=== PATIENT | female | born 1995 | race Caucasian/White ===

== ENCOUNTER → 2021-09-19 | Outpatient (CLI) | payer OTHER ==
--- NOTE | 2021-09-19 15:22 | NM ---
EXAMINATION TYPE: NM hepatobiliary w EF DATE OF EXAM: 09/19/2021 COMPARISON: NONE HISTORY: Dysphasia, left upper quadrant pain TECHNIQUE: After the intravenous administration of 5.0 mCi Tc 99m Mebrofenin hepatobiliary scintigrap hy is performed. Immediate images post injection. FINDINGS: There is satisfactory initial accumulation of tracer by the liver. The gallbladder is visualized wit hin 6 minutes. The small bowel activity is noted within 12 minutes. At one hour 8 ounces of oral en sure plus is given to mimic CCK and gallbladder ejection fraction is calculated at 86 %, above the up per limit of the normal range. Therefore there is no scintigraphic evidence of cystic or common bile duct obstruction to suggest acute cholecystitis or gallbladder dyskinesia. IMPRESSION: Findings could represent hyperdynamic gallbladder
== END | disposition home or self-care (01) ==
LOC: RADNMMAIN 12:47
PROVIDERS: ATTEND Surgery Plastic and Reconstructive Surgery
DX: R10.12 Left upper quadrant pain (principal); R47.02 Dysphasia
CPT/HCPCS: 78226; A9537

== ENCOUNTER → 2021-09-19 | Outpatient (CLI) | payer OTHER ==
[2021-09-19 19:48] LABS: HCT 41.4 % (37.2-46.3); HGB 13.8 g/dL (12.0-15.0); MCH 31.1 pg (27.0-32.0); MCHC 33.3 g/dL (32.0-37.0); MCV 93.2 fL (80.0-97.0); Mean Platelet Volume 10.7 fL (9.5-12.2); Platelet Count 338 X 10*3/uL (140-440); RBC 4.44 X 10*6/uL (4.10-5.20); RDW 12.9 % (11.5-14.5)
[2021-09-19 21:02] LABS: ALT 95 U/L (8-44); AST 69 U/L (13-35); African American GFR (CKD) 131.7 (60.0-200.0); Albumin 4.5 g/dL (3.8-4.9); Albumin/Globulin Ratio 1.75 (1.60-3.17); Alkaline Phosphatase 83 U/L (41-126); Blood Urea Nitrogen 8.7 mg/dL (9.0-27.0); Calcium 9.8 mg/dL (8.7-10.3); Carbon Dioxide 17.6 mmol/L (20.0-27.5); Chloride 106 mmol/L (96-109); Chol/HDL Ratio 4.28 Ratio; Globulin 2.6 g/dL (1.6-3.3); Glucose 149 mg/dL (70-110); Iron 71 ug/dL (50-170); LDL Cholesterol,Calculated 75.3 mg/dL (0.0-131.0); Non-African American GFR(CKD) 113.7 (60.0-200.0); Potassium 3.6 mmol/L (3.5-5.5); Sodium 138 mmol/L (135-145); Total Iron Binding Capacity 337 ug/dL (228-460); Total Protein 7.1 g/dL (6.2-8.2)
== END | disposition home or self-care (01) ==
LOC: LABWHC1 12:32
PROVIDERS: ATTEND Surgery Plastic and Reconstructive Surgery
DX: I11.9 Hypertensive heart disease without heart failure (principal); E44.0 Moderate protein-calorie malnutrition; E88.81 Metabolic syndrome and other insulin resistance; E66.01 Morbid (severe) obesity due to excess calories; Z68.43 Body mass index [BMI] 50.0-59.9, adult
CPT/HCPCS: 36415; 80053; 80061; 82306; 82607; 82728; 83036; 83540; 83550; 84425; 84443; 85027

== ENCOUNTER → 2021-11-12 | Outpatient (CLI) | payer OTHER ==
[2021-11-12 15:40] VITALS: BP 99/70; PULSE 96; RESP 16; TEMP 97.6; BMI 43.9
--- NOTE | 2021-11-12 17:19 | P.BASOAP ---
Subjective Progress Note Date: 11/12/21 DATE OF SERVICE: 11/12/2021 CHIEF COMPLAINT: Morbid obesity HISTORY OF PRESENT ILLNESS: Amy Piper is a 25-year-old female who comes with lifelong morbid obesity. She was looking into the gastric bypass but now looking into the sleeve. She is in medical supervised weight loss. As a result of her morbid obesity, she has developed diabetes type II and osteoarthritis. She comes in with intermittent right upper quadrant pain and fatty food intolerance. At height of 5 feet 3.5 inches, her ideal body weight is 140 pounds. Highest weight of 269 pounds, body mass index 47.0. She comes in 251 pounds from 269 pounds, 3 months ago. She has lost 18 pounds in 3 months. Her body mass index is 43.9. She is 111 pounds overweight. PAST MEDICAL HISTORY: 1. Morbid obesity due to excess calories 2. Body mass index of 47.1, initial 3. Gastroesophageal reflux disease 4. Diabetes type II mellitus 5. Generalized anxiety disorder 6. Bipolar disorder 7. Depressive disorder 8. Disk herniation L5 S1 9. Osteoarthritis of the hip, right 10. Osteoarthritis of the knee, right 11. Osteoarthritis of right shoulder PAST SURGICAL HISTORY: 1. Adenoidectomy 2. Appendectomy 3. Orthopedic Surgery 4. Right ankle ORIF 5. Eustachian tubes 6. Right hip pinning HOME MEDICATIONS: Home Medications Medication Instructions Recorded Confirmed [place] Carbonate 1,200 mg PO HS 07/23/21 12/26/21 Propranolol [Inderal] 20 mg PO BID 07/23/21 12/26/21 QUEtiapine [SEROquel] 100 mg PO HS 07/23/21 12/26/21 Cholecalciferol [Vitamin D3 (125 125 mcg PO DAILY 12/26/21 12/26/21 Mcg = 5000 Iu)] Propranolol [Inderal] 20 mg PO TID PRN 12/26/21 12/26/21 QUEtiapine [SEROquel] 25 mg PO ONCE PRN 12/26/21 12/26/21 Vitamin E 400 unit PO DAILY 12/26/21 12/26/21 buPROPion HCL [Wellbutrin XL] 150 mg PO DAILY 12/26/21 12/26/21 ALLERGIES: Allergies Allergy/AdvReac Type Severity Reaction Status Date / Time nickel Allergy Rash/Hives Verified 12/26/21 08:56 Sulfa (Sulfonamide Allergy Rash/Hives Verified 12/26/21 08:56 Antibiotics) morphine AdvReac Hallucinations, Verified 12/26/21 08:56 gets aggressive and mean. SOCIAL HISTORY: Past tobacco use. FAMILY HISTORY: No family history of ulcerative colitis disease or Crohn's disease. Family history of morbid obesity. No lupus in the family. No reports of stomach or esophageal cancer. REVIEW OF ORGAN SYSTEMS: CONSTITUTIONAL: At height of 5 feet 3.5 inches, her ideal body weight is 140 pounds. She comes in 269 pounds. Her body mass index is 47.1. She is 129 pounds overweight. HEENT: Denies any active troubles with vision or hearing. ENDOCRINE: Denies diabetes. No hypothyroidism. CARDIOVASCULAR: Past reports of palpitations or heart attacks or chest pain. RESPIRATORY: Has daytime somnolence. GASTROINTESTINAL: Denies any bright red blood per rectum. No diarrhea. No constipation. Has gastroesophageal reflux disease. GENITOURINARY: Denies bladder urgency. No recent blood in urine MUSCULOSKELETAL: Has lower back pain and joint pain. Has osteoarthritis of the knees and hips. NEURO: No headaches. No seizure disorders. Has neuropathy. PSYCH: Has depression. No suicidal ideation. Has bipolar disorder. RHEUMATOLOGIC: No lupus. No rheumatoid arthritis. HEMATOLOGIC: Denies any abnormal bleeding or bruising. SKIN: No rash. No skin cancer. PHYSICAL EXAM: VITAL SIGNS: Height 5 foot 3.5 inches, weight 269 pounds. BMI 47.1 Vital Signs Temp 97.6 F 11/12/21 15:36 Pulse 96 11/12/21 15:36 Resp 16 11/12/21 15:36 BP 99/70 11/12/21 15:36 Pulse Ox GENERAL: Well-developed in no acute distress. HEENT: No scleral icterus. Extraocular movements grossly intact. Hears conversational speech. No nasal drainage. NECK: Supple without lymphadenopathy. CHEST: Nonlabored respirations with equal bilateral excursions. CARDIOVASCULAR: Regular rate and regular rhythm. Distal 2+ pulses. ABDOMEN: Obese, soft, nontender, nondistended. MUSCULOSKELETAL: No clubbing, cyanosis. She has a cast on her right foot due to recent injury. NEURO: No focal or lateralizing signs. Cranial nerves 2 through 12 grossly within normal limits. PSYCH: Appropriate affect. Alert and oriented to person, place and time. SKIN: Good skin turgor. Well perfused. LABS: Reviewed. WBC elevated. LFTs elevated. Triglycerides elevated. Vitamin D low. STUDIES: HIDA scan reviewed with finding of ejection fraction of 86%. ASSESSMENT: 1. Morbid obesity due to excess calories 2. Body mass index of 47.1, initial to 43.9 3. Gastroesophageal reflux disease 4. Diabetes type II mellitus 5. Generalized anxiety disorder 6. Bipolar disorder 7. Depressive disorder 8. Disk herniation L5 S1 9. Osteoarthritis of the hip, right 10. Osteoarthritis of the knee, right 11. Osteoarthritis of right shoulder 12. Leukocytosis 13. Elevated LFTs 14. Hypertriglyceridemia 15. Vitamin D deficiency PLAN: 1. For history of daytime somnolence, recommend evaluation and treatment for sleep apnea. 2. Dietary surveillance and counseling was reviewed. Increased protein intake over 65 grams daily advised. 3. Recommend medical risk assessment. 4. Psych assessment per insurance guidelines. 5. Recommend upper endoscopy 6. Recommend 12-lead EKG. 7. Recommend urine nicotine testing for history of tobacco abuse disorder 8. Recommend urine drug screen 9. She reports symptoms of cholecystitis. Recommend ultrasound of the gallbladder. Objective - Vital Signs Vital signs: Vital Signs Temp 97.6 F 11/12/21 15:36 Pulse 96 11/12/21 15:36 Resp 16 11/12/21 15:36 BP 99/70 11/12/21 15:36 Pulse Ox Intake & Output 11/11/21 11/12/21 11/12/21 18:59 06:59 18:59 Weight 114.305 kg Assessment/Plan Plan: Date: 11/12/21 Initial Weight: 122.47 kg Initial BMI: 47.0 Current Weight: 114.305 kg Current BMI: 43.9 Type of Surgery: Total Volume in Band: Previous Volume: Volume Removed: Volume Added: Band Size:
== END ==
LOC: BARWHC3 14:53
PROVIDERS: ATTEND Surgery Plastic and Reconstructive Surgery
DX: E66.01 Morbid (severe) obesity due to excess calories (principal); K21.9 Gastro-esophageal reflux disease without esophagitis; E11.9 Type 2 diabetes mellitus without complications; F41.1 Generalized anxiety disorder; F31.9 Bipolar disorder, unspecified; M51.27 Other intervertebral disc displacement, lumbosacral region; M16.11 Unilateral primary osteoarthritis, right hip; M17.11 Unilateral primary osteoarthritis, right knee; M19.011 Primary osteoarthritis, right shoulder; D72.829 Elevated white blood cell count, unspecified; R79.89 Other specified abnormal findings of blood chemistry; E78.1 Pure hyperglyceridemia; E55.9 Vitamin D deficiency, unspecified; Z68.41 Body mass index [BMI] 40.0-44.9, adult; Z79.899 Other long term (current) drug therapy; Z87.891 Personal history of nicotine dependence; Z91.09 Other allergy status, other than to drugs and biological substances; Z88.2 Allergy status to sulfonamides; Z88.5 Allergy status to narcotic agent
CPT/HCPCS: 99211

== ENCOUNTER → 2022-01-15 | Outpatient (CLI) | payer OTHER ==
--- NOTE | 2022-01-15 10:26 | XR ---
EXAMINATION TYPE: XR chest 2V DATE OF EXAM: 01/15/2022 COMPARISON: NONE TECHNIQUE: PA and lateral views submitted. HISTORY: Sleep apnea FINDINGS: The lungs are clear and there is no pneumothorax, pleural effusion, or focal pneumonia. Heart size normal. No overt failure. IMPRESSION: 1. No acute process.
== END | disposition home or self-care (01) ==
LOC: RADXRMAIN 09:38
PROVIDERS: ATTEND Surgery Plastic and Reconstructive Surgery
DX: G47.30 Sleep apnea, unspecified (principal)
CPT/HCPCS: 71046

== ENCOUNTER → 2022-01-29 | Outpatient (CLI) | payer OTHER ==
[2022-01-31 11:40] LABS: Anabasine Urine <2.0 ng/mL (<2.0)
== END | disposition home or self-care (01) ==
LOC: LABWHC1 10:14
PROVIDERS: ATTEND Surgery Plastic and Reconstructive Surgery
DX: Z71.51 Drug abuse counseling and surveillance of drug abuser (principal)
CPT/HCPCS: 80323

== ENCOUNTER → 2022-02-13 | Outpatient (CLI) | payer OTHER ==
[2022-02-13 19:05] LABS: Basophils # (A) 0.07 X 10*3/uL (0.00-0.10); Basophils % (A) 0.5 %; Eosinophils # (A) 0.42 X 10*3/uL (0.04-0.35); Eosinophils % (A) 2.9 %; HCT 39.3 % (37.2-46.3); HGB 13.1 g/dL (12.0-15.0); Immature Grans, Automated 0.3 %; Lymphocytes # (A) 3.63 X 10*3/uL (0.90-5.00); Lymphocytes % (A) 24.8 %; MCHC 33.3 g/dL (32.0-37.0); MCV 90.1 fL (80.0-97.0); Mean Platelet Volume 11.2 fL (9.5-12.2); Monocytes # (A) 0.91 X 10*3/uL (0.20-1.00); Monocytes % (A) 6.2 %; NRBC Per 100 WBC 0 /100 WBCS (0.0-0.0); Neutrophils # (A) 9.56 X 10*3/uL (1.80-7.70); Neutrophils % (A) 65.3 %; Platelet Count 394 X 10*3/uL (140-440); RBC 4.36 X 10*6/uL (4.10-5.20); RDW 15.2 % (11.5-14.5); WBC 14.64 X 10*3/uL (4.50-10.00)
[2022-02-13 19:37] LABS: African American GFR (CKD) 137.6 (60.0-200.0); Albumin 4.4 g/dL (3.8-4.9); Albumin/Globulin Ratio 1.91 (1.60-3.17); Anion Gap 12.9 mmol/L (10.00-18.00); BUN/Creat Ratio 11.14 Ratio (12.00-20.00); Blood Urea Nitrogen 7.8 mg/dL (9.0-27.0); Calcium 9.6 mg/dL (8.7-10.3); Carbon Dioxide 20.1 mmol/L (20.0-27.5); Globulin 2.3 g/dL (1.6-3.3); Non-African American GFR(CKD) 118.7 (60.0-200.0); Potassium 4.5 mmol/L (3.5-5.5); Total Bilirubin 0.4 mg/dL (0.30-1.20); Total Protein 6.7 g/dL (6.2-8.2)
== END | disposition home or self-care (01) ==
LOC: LABPAT 13:20
PROVIDERS: ATTEND Surgery Plastic and Reconstructive Surgery
DX: Z01.812 Encounter for preprocedural laboratory examination (principal)
CPT/HCPCS: 80053; 85025

== ENCOUNTER 2022-02-23 12:09 | Day surgery (SDC) | payer OTHER ==
--- NOTE | 2022-02-23 08:31 | P.GSHP ---
History of Present Illness H&P Date: 02/23/22 CHIEF COMPLAINT: Cholecystitis HISTORY OF PRESENT ILLNESS: The patient is a 26-year-old female who presents with history of epigastric including right upper quadrant abdominal pain. She underwent diagnostic studies for her gallbladder. Separately her clinical picture was consistent with cholecystitis. Now she presents for surgical intervention. PAST MEDICAL HISTORY: Please see list PAST SURGICAL HISTORY: Please see list MEDICATIONS: Please see list ALLERGIES: Please see list SOCIAL HISTORY: Please see list FAMILY HISTORY: Please see list REVIEW OF ORGAN SYSTEMS: CONSTITUTIONAL: No reports of fevers or chills. HEENT: Denies any troubles with the vision or hearing. ENDOCRINE: No reports of hypothyroidism. No diabetes. RESPIRATORY: No recent pneumonias. CARDIOVASCULAR: Denies chest pain or palpitations GI: No blood in stools or constipation. MUSCULOSKELETAL: Has occasional joint pain including back pain. NEURO: No seizure disorders or headaches. No recent stroke. PSYCH: No depression or suicidal ideation. GENITOURINARY: No active blood in urine. No urinary hesitancy. HEMATOLOGIC: No personal or family history of DVTs or pulmonary emboli. SKIN: No skin cancer. PHYSICAL EXAM: VITAL SIGNS: Afebrile vital signs stable GENERAL: Well-developed pleasant in no acute distress. HEENT: No scleral icterus. Extraocular movements grossly intact. Moist buccal mucosa. NECK: Supple without lymphadenopathy. CHEST: Unlabored respirations. Equal bilateral excursions. CARDIOVASCULAR: Regular rate regular rhythm rhythm. Distal 2+ pulses. ABDOMEN: Soft, nondistended. Tender along the epigastrium and right upper quadrant. MUSCULOSKELETAL: No clubbing, cyanosis, or edema. NEURO: Cranial nerves II to XII within normal limits. No focal or lateralizing signs. PSYCH: Alert and oriented to person, place and time. SKIN: Well-perfused good skin turgor. ASSESSMENT: 1. Epigastric and right upper quadrant abdominal pain 2. Chronic cholecystitis 3. Symptomatic gallstones. PLAN: 1. Will need a robotic cholecystectomy possible open. Benefits and risks were described. 2. Heparin for DVT prophylaxis 5000 units. 3. Antibiotic prophylaxis. 4. Elevated risk due to morbid obesity Past Medical History Past Medical History: GERD/Reflux, Seizure Disorder Additional Past Medical History / Comment(s): hx seizure november 2018 (unknown cause)., staph infection - 2019, "pelvic bone area" ( tx with vancomycin). , back pain., states COVID 2020 and occaisionally has difficulty taking a deep breath., controlled hand tremors with propanolol. recent abnormal EKG led to referral to Dr Graham for stress test and ECHO. small amt of fluid around heart 02/12/22. has hx of elevated liver enzymes. History of Any Multi-Drug Resistant Organisms: None Reported Past Surgical History: Adenoidectomy, Appendectomy, Orthopedic Surgery Additional Past Surgical History / Comment(s): right ankle stabilized with pins placed. ,right hip repair., tubes in ears. Past Anesthesia/Blood Transfusion Reactions: Previous Problems w/ Anesthesia, Postoperative Nausea & Vomiting (PONV) Additional Past Anesthesia/Blood Transfusion Reaction / Comment(s): states she boo and panics when she wakes up Smoking Status: Never smoker, Second hand smoke exposure - Past Family History Mother Family Medical History: No Reported History Father Family Medical History: Coronary Artery Disease (CAD), Diabetes Mellitus, Hyperlipidemia Additional Family Medical History / Comment(s): ETOH issues Medications and Allergies Home Medications Medication Instructions Recorded Confirmed Type [place] Carbonate 1,200 mg PO HS 07/23/21 02/18/22 History Propranolol [Inderal] 20 mg PO BID 07/23/21 02/18/22 History QUEtiapine [SEROquel] 100 mg PO HS 07/23/21 02/18/22 History Propranolol [Inderal] 20 mg PO TID PRN 12/26/21 02/18/22 History QUEtiapine [SEROquel] 25 mg PO TID 12/26/21 02/18/22 History buPROPion HCL [Wellbutrin XL] 150 mg PO DAILY 12/26/21 02/18/22 History Acetaminophen [Tylenol Extra 1,000 mg PO DAILY PRN 02/18/22 02/18/22 History Strength] Allergies Allergy/AdvReac Type Severity Reaction Status Date / Time nickel Allergy Rash/Hives Verified 02/18/22 12:05 Sulfa (Sulfonamide Allergy Rash/Hives Verified 02/18/22 12:05 Antibiotics) morphine AdvReac Hallucinations, Verified 02/18/22 12:05 gets aggressive and mean.
[~2022-02-23 12:09] MED LIST: ACETAMINOPHEN TAB 500 MG TAB PO PRN; DEXAMETHASONE SOD PHOSPHATE 4 MG/ML 1 ML VIAL IV ONE; GABAPENTIN 300 MG CAP PO PRN; HEPARIN SODIUM,PORCINE/PF 5,000 UNIT/0.5 ML SYRINGE SQ PRN; INDOCYANINE GREEN 25 MG VIAL IV STA; LACTATED RINGERS 1,000 ML IV SCH; MIDAZOLAM 2 MG/2 ML VIAL IV PRN; ONDANSETRON 4 MG/2 ML VIAL IVP ONE; SCOPOLAMINE 1 MG/72 HR PATCH TRANSDERM ONE; SCOPOLAMINE 1 MG/72 HR PATCH TRANSDERM PRN; fentaNYL (PF) 50 MCG/ML 2 ML AMP IV PRN
[2022-02-23 13:17] VITALS: RESP 16
[2022-02-23] MEDS ORDERED: MIDAZOLAM HCL 10 MG/10 ML VIAL IV ONE (13:39)
[2022-02-23 13:46] LABS: Anisocytosis Slight; Basophils # (A) 0.1 k/uL (0-0.2); Basophils % (A) 1 %; Eosinophils # (A) 0.5 k/uL (0-0.7); Eosinophils % (A) 4 %; HCT 35.1 % (34.0-46.0); HGB 12.6 gm/dL (11.4-16.0); Hyperchromasia Moderate; Lymphocytes # (A) 3.6 k/uL (1.0-4.8); Lymphocytes % (A) 25 %; MCHC 35.9 g/dL (31.0-37.0); MCV 89.3 fL (80.0-100.0); Mean Platelet Volume 7.9; Monocytes # (A) 0.7 k/uL (0-1.0); Monocytes % (A) 5 %; Neutrophils # (A) 9.6 k/uL (1.3-7.7); Neutrophils % (A) 66 %; Platelet Count 390 k/uL (150-450); Poikilocytosis Moderate; RBC 3.93 m/uL (3.80-5.40); RDW 16.4 % (11.5-15.5); WBC 14.6 k/uL (3.8-10.6)
[2022-02-23 14:03] LABS: ALT 56 U/L (4-34); AST 48 U/L (14-36); African American GFR (CKD) >90 (>60 ml/min/1.73 sqM); Albumin 4.6 g/dL (3.5-5.0); Alkaline Phosphatase 71 U/L (38-126); Anion Gap 9 mmol/L; Blood Urea Nitrogen 8 mg/dL (7-17); Calcium 9.5 mg/dL (8.4-10.2); Carbon Dioxide 20 mmol/L (22-30); Chloride 109 mmol/L (98-107); Glucose 94 mg/dL (74-99); Non-African American GFR(CKD) >90 (>60 ml/min/1.73 sqM); Potassium 4.4 mmol/L (3.5-5.1); Sodium 138 mmol/L (137-145); Total Bilirubin 1.1 mg/dL (0.2-1.3); Total Protein 7.2 g/dL (6.3-8.2)
[2022-02-23] MEDS ORDERED: NEOSTIGMINE 1 MG/ML 10 ML VIAL ONE (14:42)
[2022-02-23] MEDS ORDERED: INDOCYANINE GREEN 25 MG VIAL IV ONE (14:42)
[2022-02-23] MEDS ORDERED: LIDOCAINE 4% LTA KIT (4 ML) TOPICAL ONE (14:42)
[2022-02-23] MEDS ORDERED: PROPOFOL 10 MG/ML 20 ML VIAL IV ONE (14:42)
[2022-02-23] MEDS ORDERED: MIDAZOLAM 2 MG/2 ML VIAL ONE (14:42)
[2022-02-23] MEDS ORDERED: ROCURONIUM 10 MG/ML (5 ML VIAL) IV ONE (14:42)
[2022-02-23] MEDS ORDERED: SUCCINYLCHOLINE CHLORIDE 100 MG/5 ML SYR IV ONE (14:42)
[2022-02-23] MEDS ORDERED: GLYCOPYRROLATE 0.2 MG/ML 2 ML VIAL ONE (14:42)
[2022-02-23] MEDS ORDERED: LIDOCAINE 2% INJ 20 MG/ML (2 ML VIAL) ONE (14:42)
[2022-02-23] MEDS ORDERED: HYDROmorphone (PF) 1 MG/ML ONE (14:42)
[2022-02-23] MEDS ORDERED: fentaNYL (PF) 50 MCG/ML 2 ML AMP ONE (14:42)
[2022-02-23] MEDS ORDERED: LIDOCAINE 1%-EPI 1:100,000 20 ML VIAL SQ ONE (15:07)
--- NOTE | 2022-02-23 15:51 | P.OP ---
Date of Procedure: 02/23/22 Description of Procedure: SURGEON: CHAS VELA MD PREOPERATIVE DIAGNOSES: 1. Chronic cholecystitis with right upper quadrant abdominal pain 2. Morbid obesity due to excess calories, BMI 44.4 3. Abnormal EKG 4. Generalized anxiety disorder 5. Depressive disorder 6. Bipolar disorder 7. Seizure disorder 8. Elevated liver enzymes 9. Gallbladder disorder POSTOPERATIVE DIAGNOSES: 1. Chronic cholecystitis with right upper quadrant abdominal pain 2. Morbid obesity due to excess calories, BMI 44.4 3. Abnormal EKG 4. Generalized anxiety disorder 5. Depressive disorder 6. Bipolar disorder 7. Seizure disorder 8. Elevated liver enzymes 9. Gallbladder disorder 10. Hepatomegaly with fatty liver disease OPERATION: Robotic-assisted da Rabia Xi laparoscopic cholecystectomy, multiport with FIREFLY ESTIMATED BLOOD LOSS: 5 mL. SPECIMENS REMOVED: Gallbladder. COMPLICATIONS: None. OPERATIVE FINDINGS: 1. Mesenteric gallbladder with hepatomegaly and fatty liver disease. INDICATIONS: The patient is a 26-year-old female who presents with symptomatic gallstones. Robotic assisted laparoscopic approach was described. Benefits and risks of the procedure including but not limited to bleeding, infection, injury to the biliary tree was described. Informed consent was obtained. DESCRIPTION OF PROCEDURE: Patient was brought to the operating room, placed in supine position. After general induction, the abdomen had been prepped and draped in standard sterile fashion. The robotic da Rabia XI system was primed. After a timeout protocol was performed, the patient had been prepped and draped in standard sterile fashion. The patient was injected with indocyanine green. A 5 mm 0 degrees laparoscopic trocar entry was performed along the left upper quadrant. The abdomen insufflated to 15 mmHg pressure which was tolerated well. Diagnostic laparoscopy demonstrated no injury to bowel viscera or mesentery. The liver surface was unremarkable. Next, two 8 mm robotic ports were placed along the right upper abdomen. The camera 8-mm port was maintained along the epigastrium. Another 8 mm port was placed along the left upper abdominal wall after exchanging the 5 mm port. Please note that the ports were placed at least 10 to 15 cm away from the target anatomy of the gallbladder. The robot was docked along the left lateral abdomen. The patient was repositioned in reverse Trendelenburg position. Using a grasper for arm 3, a grasper for arm 4, including hook cautery for arm 1, the robotic system was docked and primed as described. Instruments were interchanged by the training assistant including hook cautery, Bovie cautery and clip appliers. I had sat at the console. The gallbladder was initially dissected free from a dome down to the infundibulum of the gallbladder due to mesenteric gallbladder. Next attention was brought to the infundibulum and cystic structures. The infundibulum and cystic duct were dissected free from surrounding tissues. The cystic duct was isolated. FIREFLY was used to identify the cystic artery and cystic structures. A critical view of safety was obtained. Large PLASTIC clips were used throughout the entire case. Using a clip coil winding supervisor, 2 clips were placed at the junction of the infundibulum and cystic duct. The cystic duct was divided between clips. Next, the cystic artery was similarly clipped and cauterized. Total of 3 clips used and along the hepatic fossa. Electro-Bovie cautery was used to remove the gallbladder from the hepatic fossa. Hemostasis was checked and found to be adequate. The robot was undocked. I re-scrubbed into the case. Using a 10 mm Endo Catch bag via the left upper quadrant incision, the specimen was removed from the abdominal cavity. All pneumoperitoneum instruments were evacuated from the abdominal cavity. The incisions were reapproximated using 4-0 Monocryl in an interrupted subcuticular fashion. Fascial defects were less than 8 mm in size. Please note along the trocar sites, local anesthetic was placed as a field block prior to insertion of all instruments. Liquid glue was applied to the skin. At the end of the procedure needle, sponge, and instrument count had been verified correct by the surgical rn. The patient was transferred to postanesthesia care unit in stable condition. Intraoperative films were shared with the patient's family. Plan - Discharge Summary Discharge Rx Participant: Yes New Discharge Prescriptions: New Ibuprofen [Motrin] 600 mg PO Q8HR PRN #30 tab PRN Reason: Pain Simethicone [Gas-X] 125 mg PO AC-TID PRN #20 capsule PRN Reason: Pain Acetaminophen Tab [Tylenol Tab] 1,000 mg PO Q6HR PRN #30 tablet PRN Reason: Pain Continue QUEtiapine [SEROquel] 100 mg PO HS Propranolol [Inderal] 20 mg PO BID Propranolol [Inderal] 20 mg PO TID PRN PRN Reason: TREMORS/ANXIETY [place] Carbonate 1,200 mg PO HS buPROPion HCL [Wellbutrin XL] 150 mg PO DAILY QUEtiapine [SEROquel] 25 mg PO TID Discontinued Acetaminophen [Tylenol Extra Strength] 1,000 mg PO DAILY PRN PRN Reason: Migraine Headache Discharge Medication List [place] Carbonate 1,200 mg PO HS 07/23/21 [History] Propranolol [Inderal] 20 mg PO BID 07/23/21 [History] QUEtiapine [SEROquel] 100 mg PO HS 07/23/21 [History] Propranolol [Inderal] 20 mg PO TID PRN 12/26/21 [History] QUEtiapine [SEROquel] 25 mg PO TID 12/26/21 [History] buPROPion HCL [Wellbutrin XL] 150 mg PO DAILY 12/26/21 [History] Acetaminophen Tab [Tylenol Tab] 1,000 mg PO Q6HR PRN #30 tablet 02/23/22 [Rx] Ibuprofen [Motrin] 600 mg PO Q8HR PRN #30 tab 02/23/22 [Rx] Simethicone [Gas-X] 125 mg PO AC-TID PRN #20 capsule 02/23/22 [Rx] [facility]ment(s[facility]Ref[facility] [place] [facility] Patient Instructions/Handouts: *Surgery [facility] - Managing Your Pain After Surgery Without Opioids, Low Fat Diet (DC), Laparoscopic Cholecystectomy (GEN) Activity/Diet/Wound Care/Special Instructions: Recommend low-fat diet for the next 2 days. No lifting over 10 pounds in 2 weeks until March 09. May shower. No bath tub soaks for two weeks until March 09. Diet as tolerated. Use Tylenol, simethicone and ibuprofen or Aleve scheduled for the next 24-48 hours for best pain relief. Use ice along incisions for today to prevent swelling. Discharge Disposition: HOME SELF-CARE
[2022-02-23 15:55] VITALS: TEMP 97
[2022-02-23] MEDS ORDERED: ONDANSETRON 4 MG/2 ML VIAL ONE (17:16)
[2022-02-23] MEDS ORDERED: ONDANSETRON 4 MG/2 ML VIAL IVP ONE (17:26)
[2022-02-23] MEDS ORDERED: DEXAMETHASONE SOD PHOSPHATE 4 MG/ML 1 ML VIAL IVP ONE (17:27)
[2022-02-23 18:53] VITALS: BP 101/75; PULSE 74
== END 2022-02-23 19:04 | disposition home or self-care (01) ==
LOC: OR 12:09
PROVIDERS: ATTEND Surgery Plastic and Reconstructive Surgery
DX: K81.1 Chronic cholecystitis (principal); E66.01 Morbid (severe) obesity due to excess calories; Z68.41 Body mass index [BMI] 40.0-44.9, adult; R94.31 Abnormal electrocardiogram [ECG] [EKG]; F41.1 Generalized anxiety disorder; F31.9 Bipolar disorder, unspecified; G40.909 Epilepsy, unspecified, not intractable, without status epilepticus; K76.0 Fatty (change of) liver, not elsewhere classified; R16.0 Hepatomegaly, not elsewhere classified; K21.9 Gastro-esophageal reflux disease without esophagitis; Z77.22 Contact with and (suspected) exposure to environmental tobacco smoke (acute) (chronic); Z82.49 Family history of ischemic heart disease and other diseases of the circulatory system; Z83.3 Family history of diabetes mellitus; Z79.899 Other long term (current) drug therapy; Z88.2 Allergy status to sulfonamides; Z88.5 Allergy status to narcotic agent; Z91.09 Other allergy status, other than to drugs and biological substances
CPT/HCPCS: 47562; 81025; 88304; 80053; 85025; J2250 ×2; J1100; J2710; J0690; J2405; J3010; J1170; J0330; J2704; J1644; J2001

== ENCOUNTER → 2022-03-04 | Outpatient (CLI) | payer OTHER ==
[2022-03-04 15:09] VITALS: BP 145/73; PULSE 83; TEMP 98.7; BMI 42.0
--- NOTE | 2022-03-04 15:36 | P.BASOAP ---
Subjective Progress Note Date: 03/04/22 DATE OF SERVICE: 03/04/2022 CHIEF COMPLAINT: Morbid obesity HISTORY OF PRESENT ILLNESS: Amy Piper is a 25-year-old female who comes with lifelong morbid obesity. She is status post cholecystectomy. She reports feeling better since her cholecystectomy. At this time, she is pending sleep study. She has diabetes type 2 and metabolic syndrome. At height of 5 feet 3.5 inches, her ideal body weight is 140 pounds. Highest weight of 269 pounds, body mass index 47.0. She comes in 240 pounds from 251 pounds, 4 months ago. She has lost 11 pounds in 4 months. Her body mass index is 42.0. She is 100 pounds overweight. PAST MEDICAL HISTORY: 1. Morbid obesity due to excess calories 2. Body mass index of 47.1, initial 3. Gastroesophageal reflux disease 4. Diabetes type II mellitus 5. Generalized anxiety disorder 6. Bipolar disorder 7. Depressive disorder 8. Disk herniation L5 S1 9. Osteoarthritis of the hip, right 10. Osteoarthritis of the knee, right 11. Osteoarthritis of right shoulder PAST SURGICAL HISTORY: 1. Adenoidectomy 2. Appendectomy 3. Orthopedic Surgery 4. Right ankle ORIF 5. Eustachian tubes 6. Right hip pinning HOME MEDICATIONS: Home Medications Medication Instructions Recorded Confirmed [place] Carbonate 1,200 mg PO HS 07/23/21 12/26/21 Propranolol [Inderal] 20 mg PO BID 07/23/21 12/26/21 QUEtiapine [SEROquel] 100 mg PO HS 07/23/21 12/26/21 Cholecalciferol [Vitamin D3 (125 125 mcg PO DAILY 12/26/21 12/26/21 Mcg = 5000 Iu)] Propranolol [Inderal] 20 mg PO TID PRN 12/26/21 12/26/21 QUEtiapine [SEROquel] 25 mg PO ONCE PRN 12/26/21 12/26/21 Vitamin E 400 unit PO DAILY 12/26/21 12/26/21 buPROPion HCL [Wellbutrin XL] 150 mg PO DAILY 12/26/21 12/26/21 ALLERGIES: Allergies Allergy/AdvReac Type Severity Reaction Status Date / Time nickel Allergy Rash/Hives Verified 05/27/22 12:40 Sulfa (Sulfonamide Allergy Rash/Hives Verified 05/27/22 12:40 Antibiotics) morphine AdvReac Hallucinations, Verified 05/27/22 12:40 gets aggressive and mean. SOCIAL HISTORY: Past tobacco use. FAMILY HISTORY: No family history of ulcerative colitis disease or Crohn's disease. Family history of morbid obesity. No lupus in the family. No reports of stomach or esophageal cancer. REVIEW OF ORGAN SYSTEMS: CONSTITUTIONAL: At height of 5 feet 3.5 inches, her ideal body weight is 140 pounds. She comes in 269 pounds. Her body mass index is 47.1. She is 129 pounds overweight. HEENT: Denies any active troubles with vision or hearing. ENDOCRINE: Denies diabetes. No hypothyroidism. CARDIOVASCULAR: Past reports of palpitations or heart attacks or chest pain. RESPIRATORY: Has daytime somnolence. GASTROINTESTINAL: Denies any bright red blood per rectum. No diarrhea. No constipation. Has gastroesophageal reflux disease. GENITOURINARY: Denies bladder urgency. No recent blood in urine MUSCULOSKELETAL: Has lower back pain and joint pain. Has osteoarthritis of the knees and hips. NEURO: No headaches. No seizure disorders. Has neuropathy. PSYCH: Has depression. No suicidal ideation. Has bipolar disorder. RHEUMATOLOGIC: No lupus. No rheumatoid arthritis. HEMATOLOGIC: Denies any abnormal bleeding or bruising. SKIN: No rash. No skin cancer. PHYSICAL EXAM: VITAL SIGNS: Height 5 foot 3.5 inches, weight 240 pounds. BMI 42.0 Vital Signs Temp 98.7 F 03/04/22 15:06 Pulse 83 03/04/22 15:06 Resp BP 145/73 03/04/22 15:06 Pulse Ox FiO2 GENERAL: Well-developed in no acute distress. HEENT: No scleral icterus. Extraocular movements grossly intact. Hears conversational speech. No nasal drainage. NECK: Supple without lymphadenopathy. CHEST: Nonlabored respirations with equal bilateral excursions. CARDIOVASCULAR: Regular rate and regular rhythm. Distal 2+ pulses. ABDOMEN: Obese, soft, nontender, nondistended. MUSCULOSKELETAL: No clubbing, cyanosis. She has a cast on her right foot due to recent injury. NEURO: No focal or lateralizing signs. Cranial nerves 2 through 12 grossly within normal limits. PSYCH: Appropriate affect. Alert and oriented to person, place and time. SKIN: Good skin turgor. Well perfused. LABS: Reviewed. Urine drug screen positive for marijuana. Urine nicotine negative. EKG: Abnormal. First-degree AV block. Inferior infarct. EGD FINDINGS: Squamocolumnar junction 35 cm from the incisors. Diaphragmatic hiatus at 35 cm. Hill grade 2 lower esophageal valve. LA grade A erosive esophagitis. Cold biopsies obtained of the duodenum for celiac disease Chronic gastritis Final Pathologic Diagnosis GALLBLADDER, CHOLECYSTECTOMY: Mild chronic cholecystitis. ASSESSMENT: 1. Morbid obesity due to excess calories 2. Body mass index of 47.1, initial to 42.0 3. Gastroesophageal reflux disease 4. Diabetes type II mellitus 5. Generalized anxiety disorder 6. Bipolar disorder 7. Depressive disorder 8. Disk herniation L5 S1 9. Osteoarthritis of the hip, right 10. Osteoarthritis of the knee, right 11. Osteoarthritis of right shoulder 12. Leukocytosis 13. Elevated LFTs 14. Hypertriglyceridemia 15. Vitamin D deficiency 16. Chronic cholecystitis PLAN: 1. Bariatric options between a sleeve, band and a Janak-en-Y gastric bypass were reviewed in detail. The patient elected for gastric bypass. Robotic assisted approach described. 2. The [place] [facility] Data was also reviewed with benefits and risks as described. 3. An 8 page second-generation bariatric consent form was reviewed in detail including potential of bleeding, infection, leaks, adequate weight loss, nutritional deficiencies which the patient demonstrated understanding of the risks. 4. A 2 week high-protein low caloric 800 kcal diet described to address hepatomegaly. 5. Preoperative labs including complete metabolic panel and CBC with type and screen recommended. 6. DVT prophylaxis per [place] [facility]. 7. Antibiotic prophylaxis. 8. Inpatient hospitalization anticipated for more than 2 nights. 9. All questions and concerns were addressed with the patient. 10. She is at elevated risk for perioperative complications for any additional surgeries that may occur within 30 days of her index operation. 11. Overall, patient has expressed understanding of bariatric care including postoperative diet and commitment of lifestyle. Patient should benefit from surgical intervention for correction of her morbid obesity. Objective - Vital Signs Vital signs: Vital Signs Temp 98.7 F 03/04/22 15:06 Pulse 83 03/04/22 15:06 Resp BP 145/73 03/04/22 15:06 Pulse Ox FiO2 Intake & Output 03/03/22 03/04/22 03/04/22 18:59 06:59 18:59 Weight 109.316 kg Assessment/Plan Plan: Date: 03/04/22 Initial Weight: 122.47 kg Initial BMI: 47.0 Current Weight: 109.316 kg Current BMI: 42.0 Type of Surgery: Total Volume in Band: Previous Volume: Volume Removed: Volume Added: Band Size:
== END ==
LOC: BARWHC3 14:18
PROVIDERS: ATTEND Surgery Plastic and Reconstructive Surgery
DX: E66.01 Morbid (severe) obesity due to excess calories (principal); K21.9 Gastro-esophageal reflux disease without esophagitis; E11.9 Type 2 diabetes mellitus without complications; F41.1 Generalized anxiety disorder; F31.9 Bipolar disorder, unspecified; M19.011 Primary osteoarthritis, right shoulder; Z88.2 Allergy status to sulfonamides; Z68.42 Body mass index [BMI] 45.0-49.9, adult; Z88.5 Allergy status to narcotic agent; Z88.8 Allergy status to other drugs, medicaments and biological substances; Z87.891 Personal history of nicotine dependence; M51.27 Other intervertebral disc displacement, lumbosacral region; D72.829 Elevated white blood cell count, unspecified; R79.89 Other specified abnormal findings of blood chemistry; E78.1 Pure hyperglyceridemia; E55.9 Vitamin D deficiency, unspecified; K81.1 Chronic cholecystitis; M16.0 Bilateral primary osteoarthritis of hip; M17.0 Bilateral primary osteoarthritis of knee
CPT/HCPCS: 99211

== ENCOUNTER → 2022-04-23 | Outpatient (CLI) | payer OTHER ==
[2022-04-23 15:31] LABS: African American GFR (CKD) 132.1 (60.0-200.0); Albumin 4.5 g/dL (3.8-4.9); Albumin/Globulin Ratio 2.01 (1.60-3.17); Anion Gap 13.1 mmol/L (10.00-18.00); BUN/Creat Ratio 13.65 Ratio (12.00-20.00); Blood Urea Nitrogen 9.9 mg/dL (9.0-27.0); Calcium 9.8 mg/dL (8.7-10.3); Carbon Dioxide 18.8 mmol/L (20.0-27.5); Globulin 2.2 g/dL (1.6-3.3); Potassium 4.1 mmol/L (3.5-5.5); Total Bilirubin 0.4 mg/dL (0.30-1.20); Total Protein 6.7 g/dL (6.2-8.2)
[2022-04-23 15:38] LABS: Basophils # (A) 0.07 X 10*3/uL (0.00-0.10); Basophils % (A) 0.6 %; Eosinophils # (A) 0.37 X 10*3/uL (0.04-0.35); HCT 38.5 % (37.2-46.3); HGB 13.4 g/dL (12.0-15.0); Immature Grans, Automated 0.3 %; Lymphocytes # (A) 3.65 X 10*3/uL (0.90-5.00); Lymphocytes % (A) 29.7 %; MCH 31.9 pg (27.0-32.0); MCHC 34.8 g/dL (32.0-37.0); MCV 91.7 fL (80.0-97.0); Mean Platelet Volume 11.8 fL (9.5-12.2); Monocytes # (A) 0.78 X 10*3/uL (0.20-1.00); Monocytes % (A) 6.3 %; NRBC Per 100 WBC 0 /100 WBCS (0.0-0.0); Neutrophils # (A) 7.39 X 10*3/uL (1.80-7.70); Neutrophils % (A) 60.1 %; Platelet Count 213 X 10*3/uL (140-440); RBC Morphology NORMAL; RDW 13.4 % (11.5-14.5)
== END | disposition home or self-care (01) ==
LOC: LABWHC1 08:59
PROVIDERS: ATTEND Surgery Plastic and Reconstructive Surgery
DX: Z01.812 Encounter for preprocedural laboratory examination (principal)
CPT/HCPCS: 36415; 80053; 85025

== ENCOUNTER 2022-04-27 07:24 | Inpatient (IN) | payer OTHER ==
[~2022-04-27 07:24] MED LIST changes: -ACETAMINOPHEN TAB 500 MG TAB PO PRN; +CHLORHEXIDINE GLUCONATE 15 ML CUP MUCOUS MEM PRN; -GABAPENTIN 300 MG CAP PO PRN; -HEPARIN SODIUM,PORCINE/PF 5,000 UNIT/0.5 ML SYRINGE SQ PRN; +HYDROmorphone 0.5 MG/0.5 ML SYRINGE IVP PRN; -INDOCYANINE GREEN 25 MG VIAL IV STA; -MIDAZOLAM 2 MG/2 ML VIAL IV PRN; +PANTOPRAZOLE 40 MG/10 ML VIAL IVP PRN; -SCOPOLAMINE 1 MG/72 HR PATCH TRANSDERM ONE; -SCOPOLAMINE 1 MG/72 HR PATCH TRANSDERM PRN; -fentaNYL (PF) 50 MCG/ML 2 ML AMP IV PRN
--- NOTE | 2022-04-27 07:43 | P.GSHP ---
History of Present Illness H&P Date: 04/27/22 CHIEF COMPLAINT: Morbid obesity HISTORY OF PRESENT ILLNESS: Amy Piper is a 26-year-old female who comes with lifelong morbid obesity. As a result of her morbid obesity, she has developed diabetes type II and osteoarthritis. She comes in for the gastric bypass. At height of 5 feet 3.5 inches, her ideal body weight is 140 pounds. Highest weight of 269 pounds, body mass index 47.0. She comes in 251 pounds from 269 pounds, 3 months ago. She has lost 18 pounds in 3 months. Her body mass index is 43.9. She is 111 pounds overweight. PAST MEDICAL HISTORY: 1. Morbid obesity due to excess calories 2. Body mass index of 47.1, initial 3. Gastroesophageal reflux disease 4. Diabetes type II mellitus 5. Generalized anxiety disorder 6. Bipolar disorder 7. Depressive disorder 8. Disk herniation L5 S1 9. Osteoarthritis of the hip, right 10. Osteoarthritis of the knee, right 11. Osteoarthritis of right shoulder PAST SURGICAL HISTORY: 1. Adenoidectomy 2. Appendectomy 3. Orthopedic Surgery 4. Right ankle ORIF 5. Eustachian tubes 6. Right hip pinning 7. Cholecystectomy HOME MEDICATIONS: Home Medications Medication Instructions Recorded Confirmed [place] Carbonate 1,200 mg PO HS 07/23/21 12/26/21 Propranolol [Inderal] 20 mg PO BID 07/23/21 12/26/21 QUEtiapine [SEROquel] 100 mg PO HS 07/23/21 12/26/21 Cholecalciferol [Vitamin D3 (125 125 mcg PO DAILY 12/26/21 12/26/21 Mcg = 5000 Iu)] Propranolol [Inderal] 20 mg PO TID PRN 12/26/21 12/26/21 QUEtiapine [SEROquel] 25 mg PO ONCE PRN 12/26/21 12/26/21 Vitamin E 400 unit PO DAILY 12/26/21 12/26/21 buPROPion HCL [Wellbutrin XL] 150 mg PO DAILY 12/26/21 12/26/21 ALLERGIES: Allergies Allergy/AdvReac Type Severity Reaction Status Date / Time nickel Allergy Rash/Hives Verified 12/26/21 08:56 Sulfa (Sulfonamide Allergy Rash/Hives Verified 12/26/21 08:56 Antibiotics) morphine AdvReac Hallucinations, Verified 12/26/21 08:56 gets aggressive and mean. SOCIAL HISTORY: Past tobacco use. FAMILY HISTORY: No family history of ulcerative colitis disease or Crohn's disease. Family history of morbid obesity. No lupus in the family. No reports of stomach or esophageal cancer. REVIEW OF ORGAN SYSTEMS: CONSTITUTIONAL: At height of 5 feet 3.5 inches, her ideal body weight is 140 pounds. She comes in 269 pounds. Her body mass index is 47.1. She is 129 pounds overweight. HEENT: Denies any active troubles with vision or hearing. ENDOCRINE: Denies diabetes. No hypothyroidism. CARDIOVASCULAR: Past reports of palpitations or heart attacks or chest pain. RESPIRATORY: Has daytime somnolence. GASTROINTESTINAL: Denies any bright red blood per rectum. No diarrhea. No constipation. Has gastroesophageal reflux disease. GENITOURINARY: Denies bladder urgency. No recent blood in urine MUSCULOSKELETAL: Has lower back pain and joint pain. Has osteoarthritis of the knees and hips. NEURO: No headaches. No seizure disorders. Has neuropathy. PSYCH: Has depression. No suicidal ideation. Has bipolar disorder. RHEUMATOLOGIC: No lupus. No rheumatoid arthritis. HEMATOLOGIC: Denies any abnormal bleeding or bruising. SKIN: No rash. No skin cancer. PHYSICAL EXAM: VITAL SIGNS: Height 5 foot 3.5 inches, weight 269 pounds. BMI 47.1 GENERAL: Well-developed in no acute distress. HEENT: No scleral icterus. Extraocular movements grossly intact. Hears conversational speech. No nasal drainage. NECK: Supple without lymphadenopathy. CHEST: Nonlabored respirations with equal bilateral excursions. CARDIOVASCULAR: Regular rate and regular rhythm. Distal 2+ pulses. ABDOMEN: Obese, soft, nontender, nondistended. MUSCULOSKELETAL: No clubbing, cyanosis. She has a cast on her right foot due to recent injury. NEURO: No focal or lateralizing signs. Cranial nerves 2 through 12 grossly within normal limits. PSYCH: Appropriate affect. Alert and oriented to person, place and time. SKIN: Good skin turgor. Well perfused. ASSESSMENT: 1. Morbid obesity due to excess calories 2. Body mass index of 47.1, initial to 43.7 3. Gastroesophageal reflux disease 4. Diabetes type II mellitus 5. Generalized anxiety disorder 6. Bipolar disorder 7. Depressive disorder 8. Disk herniation L5 S1 9. Osteoarthritis of the hip, right 10. Osteoarthritis of the knee, right 11. Osteoarthritis of right shoulder 12. Leukocytosis 13. Elevated LFTs 14. Hypertriglyceridemia 15. Vitamin D deficiency PLAN: 1. Bariatric options between a sleeve, band and a Janak-en-Y gastric bypass were reviewed in detail. The patient elected for a gastric bypass. Robotic assisted approach described. 2. The [place] [facility] Data was also reviewed with benefits and risks as described. 3. An 8 page second-generation bariatric consent form was reviewed in detail including potential of bleeding, infection, leaks, adequate weight loss, nutritional deficiencies which the patient demonstrated understanding of the risks. 4. A 2 week high-protein low caloric 800 kcal diet described to address hepatomegaly. 5. Preoperative labs including complete metabolic panel and CBC with type and screen recommended. 6. DVT prophylaxis per [place] [facility]. 7. Antibiotic prophylaxis. 8. Inpatient hospitalization anticipated for more than 2 nights. 9. All questions and concerns were addressed with the patient. 10. The patient is at elevated risk for perioperative complications with sleep apnea and hypertensive heart disease. 11. Overall, patient has expressed understanding of bariatric care including postoperative diet and commitment of lifestyle. Patient should benefit from [place]y rgical intervention for correction of morbid obesity. 12. DVT risks also reviewed. 13. Alternatives of sleeve gastrectomy described in the presence of severe intra-abdominal adhesion Past Medical History Past Medical History: Chest Pain / Angina, GERD/Reflux, Seizure Disorder Additional Past Medical History / Comment(s): hx seizure november 2017 (unknown cause)., staff infection - 2018, "pelvic bone area". ,pre-diabetic., back pain., Hx of COVID in 2020., hand tremors states caused by anxiety., states she picks at skin and has scabs., pt states told she has small amt of fluid around her heart. History of Any Multi-Drug Resistant Organisms: None Reported Past Surgical History: Adenoidectomy, Appendectomy, Cholecystectomy, Orthopedic Surgery Additional Past Surgical History / Comment(s): right ankle stabilized with pins placed. ,right hip repair., tubes in ears. Past Anesthesia/Blood Transfusion Reactions: Previous Problems w/ Anesthesia, Postoperative Nausea & Vomiting (PONV) Additional Past Anesthesia/Blood Transfusion Reaction / Comment(s): states she boo and panics when she wakes up Past Psychological History: Anxiety, Bipolar, Depression Smoking Status: Never smoker, Second hand smoke exposure Past Alcohol Use History: Rare Past Drug Use History: Marijuana Additional Drug Use History / Comment(s): daily marijuana use. - Past Family History Mother Family Medical History: No Reported History Father Family Medical History: Coronary Artery Disease (CAD), Diabetes Mellitus, Deep Vein Thrombosis (DVT), Hyperlipidemia Additional Family Medical History / Comment(s): ETOH issues Medications and Allergies Home Medications Medication Instructions Recorded Confirmed Type [place] Carbonate 1,200 mg PO HS 07/23/21 03/04/22 History Propranolol [Inderal] 40 mg PO DAILY 07/23/21 03/04/22 History QUEtiapine [SEROquel] 100 mg PO HS 07/23/21 03/04/22 History Propranolol [Inderal] 20 mg PO TID PRN 12/26/21 03/04/22 History QUEtiapine [SEROquel] 25 mg PO TID PRN 12/26/21 03/04/22 History buPROPion HCL [Wellbutrin XL] 300 mg PO DAILY 12/26/21 03/04/22 History Acetaminophen Tab [Tylenol Tab] 1,000 mg PO Q6HR PRN #30 tablet 02/23/22 03/04/22 Rx Simethicone [Gas-X] 125 mg PO AC-TID PRN #20 capsule 02/23/22 03/04/22 Rx Allergies Allergy/AdvReac Type Severity Reaction Status Date / Time nickel Allergy Rash/Hives Verified 04/23/22 15:43 Sulfa (Sulfonamide Allergy Rash/Hives Verified 04/23/22 15:43 Antibiotics) morphine AdvReac Hallucinations, Verified 04/23/22 15:43 gets aggressive and mean.
[2022-04-27] MEDS ORDERED: HEPARIN SODIUM,PORCINE/PF 5,000 UNIT/0.5 ML SYRINGE SQ PRN (07:44)
[2022-04-27] MEDS ORDERED: SCOPOLAMINE 1 MG/72 HR PATCH TRANSDERM STA (07:56)
[2022-04-27] MEDS: LACTATED RINGERS 1,000 ML IV SCH ×3 (08:00→16:38)
[2022-04-27] MEDS ORDERED: MIDAZOLAM 2 MG/2 ML VIAL IVP ONE (08:22)
[2022-04-27 08:24] LABS: Basophils % (A) 0 %; Eosinophils # (A) 0.4 k/uL (0-0.7); Eosinophils % (A) 3 %; HCT 39.4 % (34.0-46.0); HGB 13.6 gm/dL (11.4-16.0); Lymphocytes # (A) 3.6 k/uL (1.0-4.8); Lymphocytes % (A) 27 %; MCH 32.4 pg (25.0-35.0); MCHC 34.4 g/dL (31.0-37.0); Mean Platelet Volume 8.3; Monocytes # (A) 0.6 k/uL (0-1.0); Monocytes % (A) 4 %; Neutrophils # (A) 8.5 k/uL (1.3-7.7); Neutrophils % (A) 64 %; Platelet Count 357 k/uL (150-450); RBC 4.19 m/uL (3.80-5.40); RDW 13.7 % (11.5-15.5); WBC 13.3 k/uL (3.8-10.6)
--- NOTE | 2022-04-27 08:29 | P.HPADDEND ---
H&P Addendum H&P Addendum Date: 04/27/22 Per discussion with patient, patient requested for lysis of adhesions rather than sleeve gastrectomy in the presence of severe abdominal adhesions
[2022-04-27] MEDS ORDERED: MIDAZOLAM 2 MG/2 ML VIAL ONE (08:40)
[2022-04-27] MEDS ORDERED: LIDOCAINE 2% INJ 20 MG/ML (2 ML VIAL) ONE (08:40)
[2022-04-27] MEDS ORDERED: SUCCINYLCHOLINE CHLORIDE 200 MG/10 ML VIAL IV ONE (08:40)
[2022-04-27] MEDS ORDERED: fentaNYL (PF) 50 MCG/ML 2 ML AMP ONE (08:40)
[2022-04-27] MEDS ORDERED: ROCURONIUM 10 MG/ML (5 ML VIAL) IV ONE (08:40)
[2022-04-27] MEDS ORDERED: KETAMINE 10 MG/ML 20 ML VIAL ONE (08:40)
[2022-04-27] MEDS ORDERED: HYDROmorphone (PF) 1 MG/ML ONE (08:40)
[2022-04-27] MEDS ORDERED: GLYCOPYRROLATE 0.2 MG/ML 2 ML VIAL ONE (08:40)
[2022-04-27] MEDS ORDERED: PROPOFOL 10 MG/ML 20 ML VIAL IV ONE (08:40)
[2022-04-27] MEDS ORDERED: NEOSTIGMINE 1 MG/ML 10 ML VIAL ONE (08:40)
[2022-04-27] MEDS ORDERED: BUPIVACAIN-EPI 0.25%-1:200,000 30 ML VIAL SQ ONE (09:15)
[2022-04-27 09:21] LABS: ALT 65 U/L (4-34); AST 41 U/L (14-36); African American GFR (CKD) >90 (>60 ml/min/1.73 sqM); Albumin 4.5 g/dL (3.5-5.0); Alkaline Phosphatase 65 U/L (38-126); Anion Gap 16 mmol/L; Blood Urea Nitrogen 11 mg/dL (7-17); Calcium 9.8 mg/dL (8.4-10.2); Carbon Dioxide 18 mmol/L (22-30); Chloride 103 mmol/L (98-107); Glucose 73 mg/dL (74-99); Non-African American GFR(CKD) >90 (>60 ml/min/1.73 sqM); Potassium 3.7 mmol/L (3.5-5.1); Sodium 137 mmol/L (137-145); Total Bilirubin 0.5 mg/dL (0.2-1.3); Total Protein 6.8 g/dL (6.3-8.2)
[2022-04-27] MEDS ORDERED: LACTATED RINGERS 1,000 ML IV ONE ×2 (10:46→15:30)
[2022-04-27] MEDS ORDERED: NALOXONE 0.4 MG/ML 1 ML VIAL IV PRN ×2 (12:30→12:33)
[2022-04-27] MEDS ORDERED: HYDROmorphone 1 MG/ML 1 ML SYRINGE IVP PRN (12:36)
[2022-04-27] MEDS ORDERED: SIMETHICONE 40 MG/0.6 ML DROPS 2,000 MG/30 ML BOTTLE PO PRN (12:36)
--- NOTE | 2022-04-27 12:49 | P.OP ---
Date of Procedure: 04/27/22 Description of Procedure: SURGEON: CHAS VELA MD PREOPERATIVE DIAGNOSES: 1. Morbid obesity due to excess calories 2. Body mass index of 47.1, initial to 42.1 3. Gastroesophageal reflux disease 4. Diabetes type II mellitus 5. Generalized anxiety disorder 6. Bipolar disorder 7. Depressive disorder 8. Disk herniation L5 S1 9. Osteoarthritis of the hip, right 10. Osteoarthritis of the knee, right 11. Osteoarthritis of right shoulder 12. Leukocytosis 13. Elevated LFTs 14. Hypertriglyceridemia 15. Vitamin D deficiency POSTOPERATIVE DIAGNOSES: 1. Morbid obesity due to excess calories 2. Body mass index of 47.1, initial to 42.1 3. Gastroesophageal reflux disease 4. Diabetes type II mellitus 5. Generalized anxiety disorder 6. Bipolar disorder 7. Depressive disorder 8. Disk herniation L5 S1 9. Osteoarthritis of the hip, right 10. Osteoarthritis of the knee, right 11. Osteoarthritis of right shoulder 12. Leukocytosis 13. Elevated LFTs 14. Hypertriglyceridemia 15. Vitamin D deficiency OPERATION: 1. Robotic assisted da Rabia Xi laparoscopic Randy-en-Y gastric bypass, 100 cm antecolic antegastric Randy limb, with 25 mm EEA. 2. Intraoperative esophagogastrojejunoscopy. ANESTHESIA: GETA and local ESTIMATED BLOOD LOSS: 20 mL SPECIMENS REMOVED: None. COMPLICATIONS: NONE. Operative Findings: 1. Biliopancreatic limb 60 cm 2. Bypass performed using 100 cm randy limb secondary to avoid increased tension at 150 cm. 3. Jejunojejunostomy and Mcguire's defects closed using 2-0 V-LOC, green 4. Leak test negative with gastrojejunal anastomosis patent and hemostatic. 5. Reinforcement sutures were placed along the gastrojejunal anastomosis at 9:00, 12:00 and 3:00 6. Total of 4 - green, 3 - blue, 2- white 60-mm staple loads were used. INDICATIONS: Amy Piper is a 26-year-old female who comes with lifelong morbid obesity. As a result of her morbid obesity, she has developed diabetes type II and osteoarthritis. She comes in for the gastric bypass. At height of 5 feet 3.5 inches, her ideal body weight is 140 pounds. Highest weight of 269 pounds, body mass index 47.0. She comes in 230 pounds from 251 pounds, 6 months ago. She has lost 21 pounds in 6 months. Her body mass index is 42.1. She is 90 pounds overweight. A second-generation bariatric consent form was described in detail including the possibility of protein malnutrition, leaks, gastrojejunal stricture, venous thrombosis, need for further surgery for which she demonstrated understanding. Benefits and risks of the procedure were described at length. Informed consent was obtained. DESCRIPTION: The patient was brought into the operating room theater. She was p laced supine. She had received heparin subcutaneously for DVT prophylaxis. Additionally Peridex oral solution as an oral decontaminant was placed per anesthesia. After general induction, the abdomen was prepped and draped in standard sterile fashion. Ioban draping was placed along the abdomen. Newsome catheter was avoided. A robotic [employer] HQi Xi system was prepped and primed. Incisions were proposed at 15 cm from the xiphoid. Proposed port sites were marked with indelible marker along the anterior axillary line bilaterally, mid clavicular line bilaterally with each port marked 10 cm from each other. The robotic stapler port was marked for the right midclavicular line including along the left midclavicular line. A 5 mm 0 degrees laparoscopic trocar entry was performed along the left upper quadrant. The abdomen was insufflated to 15 mmHg pressure, which she tolerated well. Diagnostic laparoscopy demonstrated no injury to bowel, viscera, or mesentery. The liver was consistent with her 2-week protein diet without hepatomegaly An 8 mm camera port was placed left lateral to the umbilicus at the epigastrium, 15 cm distal to the xiphoid. Next, 12-mm robot stapler port was placed along the right mid abdomen. An 12 mm port was exchanged along the left upper quadrant. An 8 mm port was placed on the left lateral abdominal wall under direct visualization Please note that the ports were placed 18 to 20 cm away from the target anatomy of the stomach. Care was taken to check that each robotic arm was safely away from collision with the bed or the patient. At the epigastrium, a medium sized Briseida liver retractor was placed under direct visualization with the Iron Delivery Merchandiser placed under the right shoulder of the patient. The patient was repositioned in reverse Trendelenburg position at 21-degrees after lowering the bed. The robot was docked over the patient. Using grasper for arm 3, a grasper for arm 1, including vessel sealer for arm 4, the robotic system was docked and primed as described. Instruments were interchanged by the lead dental assistant including endoscissors, the needle cryogenic transport driver, and stapler. I had sat at the console. Next, the transverse mesocolon was reflected into the upper abdomen for the jejunojejunostomy portion of the case. The ligament of Treitz was identified and measured 60 cm antegrade and marked using 3-0 Silk. The jejunum was divided at the 60 cm point using 60-mm white loads above the suture measurement. The biliopancreatic limb was held in place. The Randy limb was measured 100 cm in an antegrade fashion to avoid tension along the proposed gastrojejunal anastomosis. At 100 cm along the anti-mesenteric border of the Randy limb, a jejunojejunostomy was proposed whereby enterotomies were created along the biliopancreatic limb including the Randy limb using a Bovie cautery. A stay suture of 3-0 Slik was placed to align and create the anastomosis. The enterotomies along the anti- mesenteric borders were created followed by unidirectional fire from the patient's right side using 60 mm blue loads Smart technology robotic stapler. The jejunojejunostomy was found to be hemostatic. The enterotomy was closed after horizontal mattress stitch of 3-0 silk used to elevate the enterotomy followed by closure with the robotic stapler blue load. The jejunal limb was temporarily tacked along the left upper quadrant. The transverse mesocolon was divided using vessel sealer to allow decrease tension of the jejunum to the gastric pouch. Attention was now brought to the creation of the gastrojejunostomy. Along the lesser curvature of the stomach, dissection was made along the retrogastric space to allow first firing of the robotic staple. Three joyce of green loads and 1- blue and 1-white loads of 60 mm staplers were used to divide the stomach to create the gastric pouch. The patient was then prepared for placement of a Orvil. A 25-mm Orvil was selected for placement by the nurse cured meats supervisor. The Orvil tubing was placed anterior to the staple line of the gastric pouch and brought out through the left inferior lateral port. I re-scrubbed into the case. The robotic arms were temporarily undocked. The Orvil was then carefully and successfully navigated with the help of the nurse cured meats supervisor into the gastric pouch. The sutures were identified and divided. The tubing was from the 25 mm anvil. As the Orvil had been placed, the jejunal limb was brought proximally into the upper abdomen. No torsion was found upon the Randy limb. No tension was identified as the limb was brought along the upper abdomen. The jejunal limb was previously opened using hook cautery. The 25-mm EEA stapler was brought through the left anterior lateral port site from the left side. The EEA stapler was brought through the open jejunal limb and its needle was deployed at the antimesenteric border where the anvil were mated for approximately 1 minute upon firing. The stapler was removed after irrigating the shaft of the instrument with warm normal saline. Donuts were found to be intact and on both sides. The [employer] Xi robot arms were then re-docked. I sat at the console. The open jejunal limb defect was closed using 60 mm green load after releasing any tension from the blind jejunal limb. No redundancy was present for the jejunal limb. Reinforcement sutures were placed along the gastrojejunal anastomosis and placed along the 3:00, 9:00, 12:00 o'clock position using 3-0 Vicryl. The Mcguire and jejunojejunostomy mesenteric defect was closed using 2-0 V LOC, green. I then went to the head of the bed to perform the esophagogastrojejunoscopy and a leak test. An Olympus gastroscope was passed alongthe posterior oropharynx which was unremarkable for any injury to the vocal cords. The scope was passed down to the proximal portion of the pouch, whereby no active bleeding was encountered. Excellent visualization of the gastrojejunostomy anastomosis, including the Randy limb was encountered with endoscopic image obtained. The anastomosis was found to be patent without active bleeding. Residual blood was suctioned from the gastric pouch. The gastrointestinal tract was desufflated. No evidence of intraoperative leak was encountered as the gastric pouch and anastomosis were submerged under normal saline solution. The robot was then undocked. I then went back to the bedside of the patient, whereby with coordinated effort of the lead dental assistant, irrigation was aspirated from the upper abdominal cavity. Tisseel was placed circumferentially over the anastomosis of the gastrojejunostomy. The fascial defect of the EEA stapler was closed using Stuart Khan and 0 Vicryl. All instruments and pneumoperitoneum were evacuated from the abdominal cavity. The port correlating with the EEA stapler device was cleansed with normal saline solution and hydrogen peroxide. The rest of incisions were reapproximated using 4-0 Monocryl in an interrupted subcuticular fashion. Local anesthetic was infiltrated along the skin for postop analgesia. Liquid glue was applied to the skin. OptiFoam dressing was placed along the EEA stapler site. At the end of the procedure, needle, sponge and instrument count had been verified correct by the rn surgical pcu. The patient had tolerated the procedure well and was extubated and taken to the postanesthesia unit in stable condition.
[2022-04-27] MEDS: ONDANSETRON 4 MG/2 ML VIAL IVP SCH ×2 (14:50→23:24)
[2022-04-27] MEDS ORDERED: ACETAMINOPHEN IV (For NPO) 1,000 MG in EMPTY BAG 1 BAG IVPB ONE (16:00)
[2022-04-27] MEDS: ALBUTEROL NEBULIZED 2.5 MG/3 ML INHALATION SCH ×2 (16:21→19:51)
[2022-04-27] MEDS: fentaNYL PCA 500 MCG/50 ML BAG IV PRN (17:43)
[2022-04-27] MEDS: SODIUM CHLORIDE 0.9% 1,000 ML IV SCH ×3 (18:03→21:08)
[2022-04-27] MEDS: SIMETHICONE 40 MG/0.6 ML DROPS 2,000 MG/30 ML BOTTLE PO SCH ×3 (18:04→23:24)
[2022-04-27] MEDS ORDERED: LITHIUM CARBONATE 300 MG CAP PO SCH (21:00)
[2022-04-27] MEDS: ACETAMINOPHEN IV (For NPO) 1,000 MG in EMPTY BAG 1 BAG IVPB SCH (21:07)
[2022-04-27] MEDS: HEPARIN SODIUM,PORCINE/PF 5,000 UNIT/0.5 ML SYRINGE SQ SCH (21:07)
[2022-04-27] MEDS: PANTOPRAZOLE 40 MG/10 ML VIAL IVP SCH (21:08)
[2022-04-28] MEDS: SODIUM CHLORIDE 0.9% 1,000 ML IV SCH ×3 (02:41→11:34)
[2022-04-28 02:48] VITALS: BP 95/63; TEMP 98.4
[2022-04-28] MEDS: ACETAMINOPHEN IV (For NPO) 1,000 MG in EMPTY BAG 1 BAG IVPB SCH ×3 (04:30→16:37)
[2022-04-28] MEDS: LACTATED RINGERS 1,000 ML IV SCH (05:33)
[2022-04-28] MEDS: ONDANSETRON 4 MG/2 ML VIAL IVP SCH ×3 (05:41→16:37)
[2022-04-28 07:59] LABS: Basophils # (A) 0.1 k/uL (0-0.2); Basophils % (A) 0 %; Eosinophils # (A) 0.1 k/uL (0-0.7); Eosinophils % (A) 1 %; HCT 43.8 % (34.0-46.0); Lymphocytes # (A) 2.1 k/uL (1.0-4.8); Lymphocytes % (A) 10 %; MCHC 31.9 g/dL (31.0-37.0); MCV 97.1 fL (80.0-100.0); Mean Platelet Volume 8.5; Monocytes % (A) 5 %; Neutrophils # (A) 18.3 k/uL (1.3-7.7); Neutrophils % (A) 84 %; Platelet Count 342 k/uL (150-450); RBC 4.51 m/uL (3.80-5.40); RDW 13.6 % (11.5-15.5); WBC 21.8 k/uL (3.8-10.6)
[2022-04-28 08:08] LABS: African American GFR (CKD) >90 (>60 ml/min/1.73 sqM); Anion Gap 17 mmol/L; Blood Urea Nitrogen 4 mg/dL (7-17); Calcium 9.5 mg/dL (8.4-10.2); Carbon Dioxide 15 mmol/L (22-30); Chloride 108 mmol/L (98-107); Glucose 95 mg/dL (74-99); Non-African American GFR(CKD) >90 (>60 ml/min/1.73 sqM); Potassium 3.7 mmol/L (3.5-5.1); Sodium 140 mmol/L (137-145)
[2022-04-28] MEDS: ALBUTEROL NEBULIZED 2.5 MG/3 ML INHALATION SCH ×3 (08:26→15:51)
[2022-04-28] MEDS ORDERED: SCOPOLAMINE 1 MG/72 HR PATCH TRANSDERM SCH (08:45)
[2022-04-28] MEDS ORDERED: PROPRANOLOL 40 MG TAB PO SCH (09:00)
[2022-04-28] MEDS: fentaNYL PCA 500 MCG/50 ML BAG IV PRN (10:10)
[2022-04-28] MEDS: HEPARIN SODIUM,PORCINE/PF 5,000 UNIT/0.5 ML SYRINGE SQ SCH (11:08)
[2022-04-28] MEDS: SIMETHICONE 40 MG/0.6 ML DROPS 2,000 MG/30 ML BOTTLE PO SCH ×3 (11:10→16:54)
[2022-04-28] MEDS: PANTOPRAZOLE 40 MG/10 ML VIAL IVP SCH (11:20)
[2022-04-28 12:41] VITALS: BMI 42.0
--- NOTE | 2022-04-28 15:24 | P.PN ---
Subjective Progress Note Date: 04/28/22 CHIEF COMPLAINT: Morbid obesity HISTORY OF PRESENT ILLNESS: Patient is postop day #1 status post Robotic assisted da Rabia Xi laparoscopic Janak-en-Y gastric bypass. Patient reports her pain is controlled with SPARES SCHEDULER pump. She denies any nausea and vomiting. She had nausea earlier in the morning that resolved. She denies any flatus or BM. She has tolerated bariatric clear liquids. She has only walked short distance. Afebrile. WBC is up at 21.8 Hgb 14 platelets 342 sodium 140 potassium 3.7 CO2 is 15 and creatinine 0.64 PHYSICAL EXAM: VITAL SIGNS: Reviewed GENERAL: Well-developed in no acute distress. HEENT: No sclera icterus. Extraocular movements grossly intact. Moist buccal mucosa. Head is atraumatic, normocephalic. Hears conversational speech. No nasal drainage. NECK: Supple without lymphadenopathy. CHEST: Non-labored respirations and equal bilateral excursions. CARDIOVASCULAR: Palpable 2+ radial pulses. ABDOMEN: Soft. Nondistended. MUSCULOSKELETAL: No clubbing or cyanosis. NEUROLOGIC: No focal or lateralizing signs. Cranial nerves II through XII grossly intact. PSYCH: Appropriate affect. Alert and oriented to person, place and time. SKIN: Well perfused. Good skin turgor. ASSESSMENT: 1. Morbid obesity due to excess calories 2. Body mass index of 47.1, initial to 42.1 3. Gastroesophageal reflux disease 4. Diabetes type II mellitus 5. Generalized anxiety disorder 6. Bipolar disorder 7. Depressive disorder 8. Disk herniation L5 S1 9. Osteoarthritis of the hip, right 10. Osteoarthritis of the knee, right 11. Osteoarthritis of right shoulder 12. Chronic Leukocytosis 13. Elevated LFTs 14. Hypertriglyceridemia 15. Vitamin D deficiency PLAN: -Continue bariatric clear liquid diet -Continue IV fluids -Continue pain medication as needed -Continue antiemetics as needed -Encouraged patient to ambulate -Encouraged patient to use incentive spirometer -DVT prophylaxis subcu heparin Physician Office Worker note has been reviewed by physician. Signing provider agrees with the documented findings, assessment, and plan of care. CHIEF COMPLAINT: Morbid obesity HISTORY OF PRESENT ILLNESS: Amy Piper is a 26-year-old female status post gastric bypass, 04/27/2022. She is voiding. Her pain is controlled. She is tolerating liquids. She is ambulating. Family is at bedside. PHYSICAL EXAM: VITAL SIGNS: Reviewed GENERAL: Well-developed in no acute distress. HEENT: No scleral icterus. Extraocular movements grossly intact. Hears conversational speech. No nasal drainage. NECK: Supple without lymphadenopathy. CHEST: Nonlabored respirations with equal bilateral excursions. CARDIOVASCULAR: Regular rate and regular rhythm. Distal 2+ pulses. ABDOMEN: Abdominal binder present. Incisions clean dry and intact. Dressing of left upper quadrant intact. MUSCULOSKELETAL: No clubbing, cyanosis. NEURO: No focal or lateralizing signs. Cranial nerves 2 through 12 grossly within normal limits. PSYCH: Appropriate affect. Alert and oriented to person, place and time. SKIN: Good skin turgor. Well perfused. LABS: Reviewed. WBC elevated over 21,000, reactive leukocytosis. ASSESSMENT: 1. Morbid obesity due to excess calories, BMI 42.1 2. Status post gastric bypass 3. Pre-existing leukocytosis PLAN: 1. Clinically, her abdominal pain is improved and she is ambulating. Patient eager to go home. 2. Bariatric discharge instructions reviewed including follow-up in the bariatric office in 3 days. 3. Reinforcement bariatric education performed with bariatric dietitian and nurse. Objective - Vital Signs Vital signs: Vital Signs Temp 98.4 F 04/28/22 02:00 Pulse 72 04/28/22 12:01 Resp 17 04/28/22 08:00 BP 95/63 04/28/22 02:00 Pulse Ox 97 04/28/22 08:29 FiO2 21 04/27/22 19:54 Intake & Output 04/27/22 04/28/22 04/28/22 18:59 06:59 18:59 Intake Total 2350 1999 Output Total 5 2325 Balance 2345 -325 Weight 104.4 kg 104.4 kg Intake: IV 2350 Intake, IV Titration 2000 Amount ACETAMINOPHEN IV (For NPO 1900 ) 1,000 mg In Empty Bag 1 bag @ 400 mls/hr IVPB ONCE ONE Rx#:[id number] ACETAMINOPHEN IV (For NPO 100 ) 1,000 mg In Empty Bag 1 bag @ 400 mls/hr IVPB Q6H [facility] Rx#:[id number] Output: Urine 2325 Estimated Blood Loss 5 Other: # Voids 1 1 - Labs CBC & Chem 7: 04/28/22 07:20 04/28/22 07:20 Labs: Abnormal Lab Results - Last 24 Hours (Table) 04/28/22 04/28/22 Range/Units 07:20 07:20 WBC 21.8 H (3.8-10.6) k/uL Neutrophils # 18.3 H (1.3-7.7) k/uL Chloride 108 H (98-107) mmol/L Carbon Dioxide 15 L (22-30) mmol/L BUN 4 L (7-17) mg/dL
[2022-04-28 15:54] VITALS: RESP 16
[2022-04-28 16:04] VITALS: PULSE 72
--- NOTE | 2022-04-28 19:36 | P.DS ---
Providers Date of admission: 04/27/22 07:24 Expected date of discharge: 04/28/22 Attending physician: Lola Hatfield Consults: 04/27/22 08:13 Consult Physician Routine Consulting Provider: Anesthesia,Services Consult Reason/Comments: Total iv anesthesia Do you want consulting provider notified?: Already Contacted Primary care physician: Stated None Hospital Course: POSTOPERATIVE DIAGNOSES: 1. Morbid obesity due to excess calories 2. Body mass index of 47.1, initial to 42.1 3. Gastroesophageal reflux disease 4. Diabetes type II mellitus 5. Generalized anxiety disorder 6. Bipolar disorder 7. Depressive disorder 8. Disk herniation L5 S1 9. Osteoarthritis of the hip, right 10. Osteoarthritis of the knee, right 11. Osteoarthritis of right shoulder 12. Leukocytosis 13. Elevated LFTs 14. Hypertriglyceridemia 15. Vitamin D deficiency HOSPITAL COURSE: Amy Piper is a 26-year-old female who comes with lifelong morbid obesity. As a result of her morbid obesity, she has developed diabetes type II and osteoarthritis. She underwent a gastric bypass, 04/27/2022. Postoperatively, patient nausea was controlled. She is tolerating liquids and ambulating. By the evening, she was doing well. Discharge instructions were reviewed. She was stable for discharge. Repeat labs as outpatient for reactive leukocytosis. Procedures: OPERATION: 1. Robotic assisted da Rabia Xi laparoscopic Randy-en-Y gastric bypass, 100 cm antecolic antegastric Randy limb, with 25 mm EEA. 2. Intraoperative esophagogastrojejunoscopy. ANESTHESIA: GETA and local ESTIMATED BLOOD LOSS: 20 mL SPECIMENS REMOVED: None. COMPLICATIONS: NONE. Operative Findings: 1. Biliopancreatic limb 60 cm 2. Bypass performed using 100 cm randy limb secondary to avoid increased tension at 150 cm. 3. Jejunojejunostomy and Mcguire's defects closed using 2-0 V-LOC, green 4. Leak test negative with gastrojejunal anastomosis patent and hemostatic. 5. Reinforcement sutures were placed along the gastrojejunal anastomosis at 9:00, 12:00 and 3:00 6. Total of 4 - green, 3 - blue, 2- white 60-mm staple loads were used. Patient Condition at Discharge: Stable Plan - Discharge Summary Discharge Rx Participant: Yes New Discharge Prescriptions: New bisacodyL [Dulcolax] 5 mg PO DAILY PRN #10 tab PRN Reason: Constipation Omeprazole [PriLOSEC] 40 mg PO DAILY #30 cap Acetaminophen Tab [Tylenol Tab] 1,000 mg PO Q6HR PRN #30 tablet PRN Reason: Pain Simethicone 40 mg/0.6 ml Drops [Mylicon Drops] 40 mg PO PCHS PRN #30 ml PRN Reason: Gas Ondansetron Odt [Zofran Odt] 4 mg PO Q8HR PRN #9 tab PRN Reason: Nausea Continue QUEtiapine [SEROquel] 100 mg PO HS Propranolol [Inderal] 40 mg PO DAILY Propranolol [Inderal] 20 mg PO TID PRN PRN Reason: TREMORS/ANXIETY [place] Carbonate 1,200 mg PO HS buPROPion HCL [Wellbutrin XL] 300 mg PO DAILY QUEtiapine [SEROquel] 25 mg PO TID PRN PRN Reason: Anxiety Acetaminophen Tab [Tylenol] 1,000 mg PO Q6HR PRN #30 tablet PRN Reason: Pain Discontinued Simethicone [Gas-X] 125 mg PO AC-TID PRN #20 capsule PRN Reason: Pain Discharge Medication List [place] Carbonate 1,200 mg PO HS 07/23/21 [History] Propranolol [Inderal] 40 mg PO DAILY 07/23/21 [History] QUEtiapine [SEROquel] 100 mg PO HS 07/23/21 [History] Propranolol [Inderal] 20 mg PO TID PRN 12/26/21 [History] QUEtiapine [SEROquel] 25 mg PO TID PRN 12/26/21 [History] buPROPion HCL [Wellbutrin XL] 300 mg PO DAILY 12/26/21 [History] Acetaminophen Tab [Tylenol] 1,000 mg PO Q6HR PRN #30 tablet 02/23/22 [Rx] Acetaminophen Tab [Tylenol Tab] 1,000 mg PO Q6HR PRN #30 tablet 04/28/22 [Rx] Omeprazole [PriLOSEC] 40 mg PO DAILY #30 cap 04/28/22 [Rx] Ondansetron Odt [Zofran Odt] 4 mg PO Q8HR PRN #9 tab 04/28/22 [Rx] Simethicone 40 mg/0.6 ml Drops [Mylicon Drops] 40 mg PO PCHS PRN #30 ml 04/28/22 [Rx] bisacodyL [Dulcolax] 5 mg PO DAILY PRN #10 tab 04/28/22 [Rx] [place] [facility](s[place]Ref[place] [facility] 9:00 am Patient Instructions/Handouts: Nutrition after Bariatric Surgery (DC), Randy-en-Y Gastric Bypass (GEN) Activity/Diet/Wound Care/Special Instructions: FOLLOW BARIATRIC DIET AMBULATE REGULARLY PLEASE FOLLOW UP AT BARIATRIC CENTER THIS WEDNESDAY No lifting over 4 pounds in 4 weeks, May 27 You may shower No bath tub soaks for two weeks, May 11 Use Tylenol scheduled for the next 24-48 hours for best pain relief. Use ice along incisions for the today to prevent swelling. No straws or carbonated beverages Discharge Disposition: HOME SELF-CARE
== END 2022-04-28 20:32 | disposition home or self-care (01) | DRG 621 ==
LOC: 2ORMAIN 07:24 → 4SSUR 11:53
PROVIDERS: ADMIT Surgery Plastic and Reconstructive Surgery; ATTEND Surgery Plastic and Reconstructive Surgery
PROC: 0D164ZA Bypass Stomach to Jejunum, Percutaneous Endoscopic Approach (ICD-10-PCS; principal; 2022-04-27 08:45)
PROC: 8E0W4CZ Robotic Assisted Procedure of Trunk Region, Percutaneous Endoscopic Approach (ICD-10-PCS; principal; 2022-04-27 08:45)
PROC: 0DJ08ZZ Inspection of Upper Intestinal Tract, Via Natural or Artificial Opening Endoscopic (ICD-10-PCS; principal; 2022-04-27 08:45)
DX: E66.01 Morbid (severe) obesity due to excess calories (principal); Z68.41 Body mass index [BMI] 40.0-44.9, adult; F31.9 Bipolar disorder, unspecified; E11.9 Type 2 diabetes mellitus without complications; D72.828 Other elevated white blood cell count; E78.1 Pure hyperglyceridemia; E55.9 Vitamin D deficiency, unspecified; M17.11 Unilateral primary osteoarthritis, right knee; M19.011 Primary osteoarthritis, right shoulder; M51.26 Other intervertebral disc displacement, lumbar region; F41.1 Generalized anxiety disorder; K21.9 Gastro-esophageal reflux disease without esophagitis; M54.9 Dorsalgia, unspecified; R25.1 Tremor, unspecified; Z79.899 Other long term (current) drug therapy; Z87.891 Personal history of nicotine dependence; Z86.16 Personal history of COVID-19; Z71.3 Dietary counseling and surveillance
CPT/HCPCS: 80048; 80053; 85025; 86850; 86900; 86901; 94640; 94760; 94762

== ENCOUNTER 2022-05-13 14:39 | Emergency (ER) | payer OTHER ==
[2022-05-13 17:11] VITALS: PULSE 70; RESP 16; TEMP 97.9
[2022-05-13] MEDS ORDERED: SODIUM CHLORIDE 0.9% 1,000 ML IV STA ×2 (18:25→18:46)
--- NOTE | 2022-05-13 18:49 | ED ---
General Adult HPI - General Chief complaint: Shortness of Breath Stated complaint: SOB Time Seen by Provider: 05/13/22 18:25 Source: patient Mode of arrival: ambulatory Limitations: no limitations - History of Present Illness Initial comments: Dictation was produced using [employer] dictation software. please excuse any grammatical, word or spelling errors. Chief Complaint: 26-year-old female presents emergency department for IV fluids History of Present Illness: 26-year-old female postop day 14 for bariatric surgery. She had outpatient lead work drawn by surgeon outpatient basis. Labs from 8 days ago showing hypokalemia with potassium 2.8. She was sent infusion center for potassium replacement. Patient was instructed by her general surgeon to come to the emergency department for IV fluids. Did speak with Dr. Oliveira was patient's primary surgeon requested that patient be given IV fluids and had to be discharge. And states that she feels weak little lightheaded. She has no pain complaints. Denies any fever or constitutional symptoms. The ROS documented in this emergency department record has been reviewed and confirmed by me. Those systems with pertinent positive or negative responses have been documented in the HPI. All other systems are other negative and/or noncontributory. PHYSICAL EXAM: General Impression: Alert and oriented x3, not in acute distress HEENT: Normocephalic atraumatic, extra-ocular movements intact, pupils equal and reactive to light bilaterally, mucous membranes moist. Cardiovascular: Heart regular rate and rhythm Chest: Able to complete full sentences, no retractions, no tachypnea Abdomen: abdomen soft, non-tender, non-distended, no organomegaly Musculoskeletal: Pulses present and equal in all extremities, no peripheral edema Motor: no focal deficits noted Neurological: CN II-XII grossly intact, no focal motor or sensory deficits noted Skin: Intact with no visualized rashes Psych: Normal affect and mood ED course: 26-year-old female with past medical history of recent bariatric surgery presents to the ER for IV fluids. Ends upon arrival shows blood pressure of 80/60, rest of vital signs within acceptable limits. Patient's blood pressure improved significantly with IV fluids. CBC unremarkable. Metabolic panel shows mild gap acidosis this likely secondary to hypoperfusion from dehydration. Potassium is improved to 3.2. Rest of labs unremarkable. For panel viral PCR positive for COVID-19. Patient observed in emergency department for approximately 6 hours. She is reevaluated bedside at 9:00 PM on to be in stable clinical condition. Patient is agreeable for discharge. She feeling significantly improved. Patient advised close follow-up with primary care doctor. - Related Data Home Medications Medication Instructions Recorded Confirmed [place] Carbonate 1,200 mg PO HS 07/23/21 05/06/22 Propranolol [Inderal] 40 mg PO DAILY 07/23/21 05/06/22 QUEtiapine [SEROquel] 100 mg PO HS 07/23/21 05/06/22 Propranolol [Inderal] 20 mg PO TID PRN 12/26/21 05/06/22 QUEtiapine [SEROquel] 25 mg PO TID PRN 12/26/21 05/06/22 buPROPion HCL [Wellbutrin XL] 300 mg PO DAILY 12/26/21 05/06/22 Scopolamine [Scopolamine 1 MG/72 1 patch TRANSDERM DIRECTED 05/01/22 05/06/22 HR patch] Previous Rx's Medication Instructions Recorded Acetaminophen Tab [Tylenol] 1,000 mg PO Q6HR PRN #30 tablet 02/23/22 Acetaminophen Tab [Tylenol Tab] 1,000 mg PO Q6HR PRN #30 tablet 04/28/22 Omeprazole [PriLOSEC] 40 mg PO DAILY #30 cap 04/28/22 Ondansetron Odt [Zofran Odt] 4 mg PO Q8HR PRN #9 tab 04/28/22 Simethicone 40 mg/0.6 ml Drops 40 mg PO PCHS PRN #30 ml 04/28/22 [Mylicon Drops] bisacodyL [Dulcolax] 5 mg PO DAILY PRN #10 tab 04/28/22 Ondansetron Odt [Zofran Odt] 4 mg PO Q8HR PRN #12 tab 05/13/22 Allergies Allergy/AdvReac Type Severity Reaction Status Date / Time nickel Allergy Rash/Hives Verified 05/13/22 17:11 Sulfa (Sulfonamide Allergy Rash/Hives Verified 05/13/22 17:11 Antibiotics) morphine AdvReac Hallucinations, Verified 05/13/22 17:11 gets aggressive and mean. Review of Systems ROS Statement: Those systems with pertinent positive or pertinent negative responses have been documented in the HPI. ROS Other: All systems not noted in ROS Statement are negative. Past Medical History Past Medical History: GERD/Reflux, Seizure Disorder Additional Past Medical History / Comment(s): hx seizure november 2017 (unknown cause)., staff infection - 2017, "pelvic bone area". ,pre-diabetic. , back pain., states COVID 2020 and sometimes has difficulty taking a deep breath., states hand tremors. History of Any Multi-Drug Resistant Organisms: None Reported Past Surgical History: Adenoidectomy, Appendectomy, Bariatric Surgery, Cholecystectomy, Orthopedic Surgery Additional Past Surgical History / Comment(s): right ankle stabilized with pins placed. ,right hip repair., tubes in ears. Gastric bypass 04-27-22 Past Anesthesia/Blood Transfusion Reactions: Previous Problems w/ Anesthesia, Postoperative Nausea & Vomiting (PONV) Additional Past Anesthesia/Blood Transfusion Reaction / Comment(s): states she boo and panics when she wakes up Past Alcohol Use History: Rare Past Drug Use History: Marijuana - Past Family History Mother Family Medical History: No Reported History Father Family Medical History: Coronary Artery Disease (CAD), Diabetes Mellitus, Deep Vein Thrombosis (DVT), Hyperlipidemia Additional Family Medical History / Comment(s): ETOH issues General Exam Limitations: no limitations Course Vital Signs 05/13/22 05/13/22 05/13/22 17:04 19:33 20:00 Temperature 97.9 F Pulse Rate 70 Respiratory 16 16 16 Rate Blood Pressure 80/60 99/54 97/58 O2 Sat by Pulse 100 Oximetry Medical Decision Making - Lab Data Result diagrams: 05/13/22 19:51 05/13/22 19:51 Lab Results 05/13/22 05/13/22 05/13/22 Range/Units 18:59 19:51 19:51 WBC 8.9 (3.8-10.6) k/uL RBC 4.97 (3.80-5.40) m/uL Hgb 15.0 (11.4-16.0) gm/dL Hct 46.0 (34.0-46.0) % MCV 92.6 (80.0-100.0) fL MCH 30.3 (25.0-35.0) pg MCHC 32.7 (31.0-37.0) g/dL RDW 12.4 (11.5-15.5) % Plt Count 291 (150-450) k/uL MPV 9.4 Neutrophils % 57 % Lymphocytes % 31 % Monocytes % 7 % Eosinophils % 3 % Basophils % 1 % Neutrophils # 5.1 (1.3-7.7) k/uL Lymphocytes # 2.7 (1.0-4.8) k/uL Monocytes # 0.6 (0-1.0) k/uL Eosinophils # 0.2 (0-0.7) k/uL Basophils # 0.0 (0-0.2) k/uL Sodium 139 (137-145) mmol/L Potassium 3.2 L (3.5-5.1) mmol/L Chloride 101 (98-107) mmol/L Carbon Dioxide 16 L (22-30) mmol/L Anion Gap 22 mmol/L BUN 3 L (7-17) mg/dL Creatinine 0.69 (0.52-1.04) mg/dL Est GFR (CKD-EPI)AfAm >90 (>60 ml/min/1.73 sqM) Est GFR (CKD-EPI)NonAf >90 (>60 ml/min/1.73 sqM) Glucose 77 (74-99) mg/dL Calcium 9.8 (8.4-10.2) mg/dL Total Bilirubin 0.5 (0.2-1.3) mg/dL AST 44 H (14-36) U/L ALT 51 H (4-34) U/L Alkaline Phosphatase 95 (38-126) U/L Total Protein 7.8 (6.3-8.2) g/dL Albumin 5.0 (3.5-5.0) g/dL Influenza Type A (PCR) Not Detected (Not Detectd) Influenza Type B (PCR) Not Detected (Not Detectd) RSV (PCR) Not Detected (Not Detectd) SARS-CoV-2 (PCR) Detected A (Not Detectd) Disposition Clinical Impression: Dehydration, Coronavirus infection Disposition: HOME SELF-CARE Condition: Good Instructions (If sedation given, give patient instructions): Dehydration (ED), Coronavirus Disease 2019 (COVID-19) Prescriptions: Ondansetron Odt [Zofran Odt] 4 mg PO Q8HR PRN #12 tab PRN Reason: Nausea Is patient prescribed a controlled substance at d/c from ED?: No Referrals: Lola Hatfield MD [STAFF PHYSICIAN] - 1-2 days None,Stated [Primary Care Provider] - 1-2 days Time of Disposition: 21:06
[2022-05-13 20:30] LABS: Basophils % (A) 1 %; Eosinophils # (A) 0.2 k/uL (0-0.7); Eosinophils % (A) 3 %; Lymphocytes # (A) 2.7 k/uL (1.0-4.8); Lymphocytes % (A) 31 %; MCH 30.3 pg (25.0-35.0); MCHC 32.7 g/dL (31.0-37.0); MCV 92.6 fL (80.0-100.0); Mean Platelet Volume 9.4; Monocytes # (A) 0.6 k/uL (0-1.0); Monocytes % (A) 7 %; Neutrophils # (A) 5.1 k/uL (1.3-7.7); Neutrophils % (A) 57 %; Platelet Count 291 k/uL (150-450); RBC 4.97 m/uL (3.80-5.40); RDW 12.4 % (11.5-15.5); WBC 8.9 k/uL (3.8-10.6)
[2022-05-13 21:00] LABS: ALT 51 U/L (4-34); AST 44 U/L (14-36); African American GFR (CKD) >90 (>60 ml/min/1.73 sqM); Alkaline Phosphatase 95 U/L (38-126); Anion Gap 22 mmol/L; Blood Urea Nitrogen 3 mg/dL (7-17); Calcium 9.8 mg/dL (8.4-10.2); Carbon Dioxide 16 mmol/L (22-30); Chloride 101 mmol/L (98-107); Glucose 77 mg/dL (74-99); Non-African American GFR(CKD) >90 (>60 ml/min/1.73 sqM); Potassium 3.2 mmol/L (3.5-5.1); Sodium 139 mmol/L (137-145); Total Bilirubin 0.5 mg/dL (0.2-1.3); Total Protein 7.8 g/dL (6.3-8.2)
[2022-05-13] MEDS ORDERED: ONDANSETRON 4 MG ODT STARTER PACK 2 TAB BTL PO STA (21:04)
[2022-05-13] MEDS ORDERED: ONDANSETRON 4 MG/2 ML VIAL IVP STA (21:04)
[2022-05-13 22:06] VITALS: BP 111/68
== END 2022-05-13 22:32 | disposition home or self-care (01) ==
LOC: EC 14:39
DX: E86.0 Dehydration (principal); B34.2 Coronavirus infection, unspecified; K21.9 Gastro-esophageal reflux disease without esophagitis; F12.90 Cannabis use, unspecified, uncomplicated; Z88.2 Allergy status to sulfonamides; Z91.048 Other nonmedicinal substance allergy status; Z79.899 Other long term (current) drug therapy
CPT/HCPCS: 36415; 80053; 85025; 87636; 93005; 96361; 96374; 99285

== ENCOUNTER → 2022-05-15 | Outpatient (CLI) | payer OTHER ==
[~2022-05-15] MED LIST changes: -CHLORHEXIDINE GLUCONATE 15 ML CUP MUCOUS MEM PRN; -DEXAMETHASONE SOD PHOSPHATE 4 MG/ML 1 ML VIAL IV ONE; -HYDROmorphone 0.5 MG/0.5 ML SYRINGE IVP PRN; -LACTATED RINGERS 1,000 ML IV SCH; -ONDANSETRON 4 MG/2 ML VIAL IVP ONE; +ONDANSETRON 4 MG/2 ML VIAL IVP STA; -PANTOPRAZOLE 40 MG/10 ML VIAL IVP PRN; +SODIUM CHLORIDE 0.9% 500 ML 500 ML in EMPTY BAG 1 BAG IV PRN
[2022-05-15 07:43] VITALS: BP 120/71; PULSE 76; RESP 18; TEMP 97.7
[2022-05-15] MEDS: POTASSIUM CHLORIDE 10 MEQ in WATER FOR INJECTION 1 100ML.BAG IVPB NR ×3 (07:44→10:21)
--- NOTE | 2022-05-15 09:36 | P.BASOAP ---
Subjective Progress Note Date: 05/15/22 Patient recently diagnosed with covert post surgery. Patient was going to multiple concerts even though forewarn to avoid. She has persistent hypotension. Patient reports she is not drinking her protein shakes or broth. She only drinks water. As a result, hypotension understood. Patient encouraged for phleboliths protein. Also encouraged for nutrition to correct overall generalized fatigue and hypotension. Close follow-up advised. Otherwise no fevers. No chills. CBC excellent. Rectal at this time receiving potassium infusions. Objective - Vital Signs Vital signs: Vital Signs Temp 97.7 F 05/15/22 07:40 Pulse 76 05/15/22 07:40 Resp 18 05/15/22 07:40 BP 120/71 05/15/22 07:40 Pulse Ox FiO2 Assessment/Plan Plan: Date: 05/15/22 Initial Weight: 122.47 kg Initial BMI: Current Weight: Current BMI: Type of Surgery: Total Volume in Band: Previous Volume: Volume Removed: Volume Added: Band Size:
[2022-05-15] MEDS: SODIUM CHLORIDE 0.9% 1,000 ML IV NR ×2 (10:22→11:36)
== END ==
LOC: PROCWHC3 07:18
PROVIDERS: ATTEND Surgery Plastic and Reconstructive Surgery
DX: E87.6 Hypokalemia (principal); E86.0 Dehydration; Z88.2 Allergy status to sulfonamides; Z88.6 Allergy status to analgesic agent; Z91.048 Other nonmedicinal substance allergy status
CPT/HCPCS: 96361; 96365; 96366; 96375; J2405; J3480

== ENCOUNTER 2022-05-20 12:07 | Inpatient (IN) | payer OTHER ==
[2022-05-20] MEDS ORDERED: SODIUM CHLORIDE 0.9% 1,000 ML IV ONE ×2 (14:38→15:21)
[2022-05-20] MEDS ORDERED: ONDANSETRON 4 MG/2 ML VIAL IVP STA (14:38)
[2022-05-20] MEDS ORDERED: FAMOTIDINE 20 MG/2 ML VIAL IV STA (14:38)
[2022-05-20] MEDS ORDERED: diphenhydrAMINE 50 MG/ML 1 ML VIAL IVP STA (14:38)
--- NOTE | 2022-05-20 14:46 | ED ---
General Adult HPI - General Chief complaint: Recheck/Abnormal Lab/Rx Stated complaint: dehydration - sent by pcp Time Seen by Provider: 05/20/22 12:12 Source: patient, RN notes reviewed Mode of arrival: wheelchair Limitations: no limitations - History of Present Illness Initial comments: This a 26-year-old female presents emergency Department chief complaint of abdominal, chest pain, low potassium. Patient states she was ordered by Dr. Hatfield. Patient states she has not felt well has been increasing symptoms she states she remains again liquid diet. Patient states surgery was 04/27/2022. Patient states shortly after she had surgery she contracted COVID- 19. Patient continues to have nausea, chest pain or abdominal discomfort. Patient's found have potassium 2.7 cm for admission and replacement. - Related Data Home Medications Medication Instructions Recorded Confirmed [place] Carbonate 1,200 mg PO HS 07/23/21 05/20/22 Propranolol [Inderal] 40 mg PO DAILY 07/23/21 05/20/22 QUEtiapine [SEROquel] 100 mg PO HS 07/23/21 05/20/22 Propranolol [Inderal] 20 mg PO TID PRN 12/26/21 05/20/22 QUEtiapine [SEROquel] 25 mg PO TID PRN 12/26/21 05/20/22 buPROPion HCL [Wellbutrin XL] 300 mg PO DAILY 12/26/21 05/20/22 Scopolamine [Scopolamine 1 MG/72 1 patch TRANSDERM DIRECTED 05/01/22 05/20/22 HR patch] Previous Rx's Medication Instructions Recorded Acetaminophen Tab [Tylenol Tab] 1,000 mg PO Q6HR PRN #30 tablet 04/28/22 Omeprazole [PriLOSEC] 40 mg PO DAILY #30 cap 04/28/22 Simethicone 40 mg/0.6 ml Drops 40 mg PO PCHS PRN #30 ml 04/28/22 [Mylicon Drops] bisacodyL [Dulcolax] 5 mg PO DAILY PRN #10 tab 04/28/22 Ondansetron Odt [Zofran Odt] 4 mg PO Q8HR PRN #12 tab 05/13/22 Allergies Allergy/AdvReac Type Severity Reaction Status Date / Time nickel Allergy Rash/Hives Verified 05/20/22 15:48 Sulfa (Sulfonamide Allergy Rash/Hives Verified 05/20/22 15:48 Antibiotics) morphine AdvReac Hallucinations, Verified 05/20/22 15:48 gets aggressive and mean. Review of Systems ROS Statement: Those systems with pertinent positive or pertinent negative responses have been documented in the HPI. ROS Other: All systems not noted in ROS Statement are negative. Past Medical History Past Medical History: GERD/Reflux, Seizure Disorder Additional Past Medical History / Comment(s): hx seizure november 2017 (unknown cause)., staff infection - 2017, "pelvic bone area". ,pre-diabetic. , back pain., states COVID 2020 and sometimes has difficulty taking a deep breath., states hand tremors. History of Any Multi-Drug Resistant Organisms: None Reported Past Surgical History: Adenoidectomy, Appendectomy, Bariatric Surgery, Cholecystectomy, Orthopedic Surgery Additional Past Surgical History / Comment(s): right ankle stabilized with pins placed. ,right hip repair., tubes in ears. Gastric bypass 04-27-22 Past Anesthesia/Blood Transfusion Reactions: Previous Problems w/ Anesthesia, Postoperative Nausea & Vomiting (PONV) Additional Past Anesthesia/Blood Transfusion Reaction / Comment(s): states she boo and panics when she wakes up Past Psychological History: Anxiety, Bipolar, Depression Smoking Status: Never smoker Past Alcohol Use History: Rare Past Drug Use History: Marijuana - Past Family History Mother Family Medical History: No Reported History Father Family Medical History: Coronary Artery Disease (CAD), Diabetes Mellitus, Deep V ein Thrombosis (DVT), Hyperlipidemia Additional Family Medical History / Comment(s): ETOH issues General Exam Limitations: no limitations General appearance: alert, in no apparent distress Head exam: Present: atraumatic, normocephalic, normal inspection Eye exam: Present: normal appearance, PERRL, EOMI. Absent: scleral icterus, conjunctival injection, periorbital swelling ENT exam: Present: normal exam, mucous membranes moist Neck exam: Present: normal inspection, full ROM. Absent: tenderness, meningism us, lymphadenopathy Respiratory exam: Present: normal lung sounds bilaterally. Absent: respiratory distress, wheezes, rales, rhonchi, stridor Cardiovascular Exam: Present: regular rate, normal rhythm, normal heart sounds. Absent: systolic murmur, diastolic murmur, rubs, gallop, clicks GI/Abdominal exam: Present: soft, tenderness, normal bowel sounds. Absent: distended, guarding, rebound, rigid Back exam: Absent: CVA tenderness (R), CVA tenderness (L) Neurological exam: Present: alert Course Vital Signs 05/20/22 05/20/22 05/20/22 12:12 14:58 15:12 Temperature 98 F Pulse Rate 60 62 68 Respiratory 16 20 16 Rate Blood Pressure 98/62 100/60 100/61 O2 Sat by Pulse 100 99 98 Oximetry Medical Decision Making - Lab Data Result diagrams: 05/20/22 14:57 05/20/22 14:57 Lab Results 05/20/22 05/20/22 05/20/22 Range/Units 14:57 14:57 14:57 WBC 8.2 (3.8-10.6) k/uL RBC 4.79 (3.80-5.40) m/uL Hgb 14.8 (11.4-16.0) gm/dL Hct 43.8 (34.0-46.0) % MCV 91.4 (80.0-100.0) fL MCH 30.9 (25.0-35.0) pg MCHC 33.8 (31.0-37.0) g/dL RDW 13.0 (11.5-15.5) % Plt Count 253 (150-450) k/uL MPV 9.9 Neutrophils % 62 % Lymphocytes % 28 % Monocytes % 6 % Eosinophils % 3 % Basophils % 1 % Neutrophils # 5.1 (1.3-7.7) k/uL Lymphocytes # 2.3 (1.0-4.8) k/uL Monocytes # 0.5 (0-1.0) k/uL Eosinophils # 0.2 (0-0.7) k/uL Basophils # 0.0 (0-0.2) k/uL PT 11.1 (9.0-12.0) sec INR 1.0 (<1.2) APTT 22.8 (22.0-30.0) sec Sodium (137-145) mmol/L Potassium (3.5-5.1) mmol/L Chloride (98-107) mmol/L Carbon Dioxide (22-30) mmol/L Anion Gap mmol/L BUN (7-17) mg/dL Creatinine (0.52-1.04) mg/dL Est GFR (CKD-EPI)AfAm (>60 ml/min/1.73 sqM) Est GFR (CKD-EPI)NonAf (>60 ml/min/1.73 sqM) Glucose (74-99) mg/dL Plasma Lactic Acid Ari (0.7-2.0) mmol/L Calcium (8.4-10.2) mg/dL Total Bilirubin (0.2-1.3) mg/dL AST (14-36) U/L ALT (4-34) U/L Alkaline Phosphatase (38-126) U/L Total Protein (6.3-8.2) g/dL Albumin (3.5-5.0) g/dL Amylase (30-110) U/L Lipase (23-300) U/L Urine Color Light Yellow Urine Appearance Cloudy H (Clear) Urine pH 6.0 (5.0-8.0) Ur Specific [place] 1.011 (1.001-1.035) Urine Protein Trace H (Negative) Urine Glucose (UA) Negative (Negative) Urine Ketones 4+ H (Negative) Urine Blood Moderate H (Negative) Urine Nitrite Negative (Negative) Urine Bilirubin Negative (Negative) Urine Urobilinogen <2.0 (<2.0) mg/dL Ur Leukocyte Esterase Large H (Negative) Urine RBC 10 H (0-5) /hpf Urine WBC 21 H (0-5) /hpf Ur Squamous Epith Cells 29 H (0-4) /hpf Urine Bacteria Moderate H (None) /hpf Hyaline Casts 6 H (0-2) /lpf Urine Mucus Few H (None) /hpf Urine HCG, Qual (Not Detectd) 05/20/22 05/20/22 05/20/22 Range/Units 14:57 14:57 14:57 WBC (3.8-10.6) k/uL RBC (3.80-5.40) m/uL Hgb (11.4-16.0) gm/dL Hct (34.0-46.0) % MCV (80.0-100.0) fL MCH (25.0-35.0) pg MCHC (31.0-37.0) g/dL RDW (11.5-15.5) % Plt Count (150-450) k/uL MPV Neutrophils % % Lymphocytes % % Monocytes % % Eosinophils % % Basophils % % Neutrophils # (1.3-7.7) k/uL Lymphocytes # (1.0-4.8) k/uL Monocytes # (0-1.0) k/uL Eosinophils # (0-0.7) k/uL Basophils # (0-0.2) k/uL PT (9.0-12.0) sec INR (<1.2) APTT (22.0-30.0) sec Sodium 142 (137-145) mmol/L Potassium 3.2 L (3.5-5.1) mmol/L Chloride 105 (98-107) mmol/L Carbon Dioxide 19 L (22-30) mmol/L Anion Gap 18 mmol/L BUN 4 L (7-17) mg/dL Creatinine 0.57 (0.52-1.04) mg/dL Est GFR (CKD-EPI)AfAm >90 (>60 ml/min/1.73 sqM) Est GFR (CKD-EPI)NonAf >90 (>60 ml/min/1.73 sqM) Glucose 80 (74-99) mg/dL Plasma Lactic Acid Ari 1.3 (0.7-2.0) mmol/L Calcium 9.1 (8.4-10.2) mg/dL Total Bilirubin 0.5 (0.2-1.3) mg/dL AST 37 H (14-36) U/L ALT 43 H (4-34) U/L Alkaline Phosphatase 76 (38-126) U/L Total Protein 6.4 (6.3-8.2) g/dL Albumin 4.3 (3.5-5.0) g/dL Amylase 40 (30-110) U/L Lipase 204 (23-300) U/L Urine Color Urine Appearance (Clear) Urine pH (5.0-8.0) Ur Specific [place] (1.001-1.035) Urine Protein (Negative) Urine Glucose (UA) (Negative) Urine Ketones (Negative) Urine Blood (Negative) Urine Nitrite (Negative) Urine Bilirubin (Negative) Urine Urobilinogen (<2.0) mg/dL Ur Leukocyte Esterase (Negative) Urine RBC (0-5) /hpf Urine WBC (0-5) /hpf Ur Squamous Epith Cells (0-4) /hpf Urine Bacteria (None) /hpf Hyaline Casts (0-2) /lpf Urine Mucus (None) /hpf Urine HCG, Qual Not Detected (Not Detectd) Disposition Clinical Impression: Dehydration, Status post bariatric surgery, Hypokalemia Disposition: ADMITTED IP TO THIS HOSP Condition: Fair Referrals: Nonstaff,Physician [Primary Care Provider] - 1-2 days Time of Disposition: 15:49
[2022-05-20] MEDS: SODIUM CHLORIDE 0.9% 1,000 ML IV SCH (15:02)
[2022-05-20] MEDS: POTASSIUM CHLORIDE 20 MEQ in WATER FOR INJECTION 1 100ML.BAG IVPB SCH ×2 (15:09→18:06)
[2022-05-20 15:17] LABS: Basophils % (A) 1 %; Eosinophils # (A) 0.2 k/uL (0-0.7); Eosinophils % (A) 3 %; HCT 43.8 % (34.0-46.0); HGB 14.8 gm/dL (11.4-16.0); Lymphocytes # (A) 2.3 k/uL (1.0-4.8); Lymphocytes % (A) 28 %; MCH 30.9 pg (25.0-35.0); MCHC 33.8 g/dL (31.0-37.0); MCV 91.4 fL (80.0-100.0); Mean Platelet Volume 9.9; Monocytes # (A) 0.5 k/uL (0-1.0); Monocytes % (A) 6 %; Neutrophils # (A) 5.1 k/uL (1.3-7.7); Neutrophils % (A) 62 %; Platelet Count 253 k/uL (150-450); RBC 4.79 m/uL (3.80-5.40); WBC 8.2 k/uL (3.8-10.6)
[2022-05-20 15:19] LABS: Appearance,Urine Cloudy (Clear); Bacteria,Urine Moderate /hpf; Bilirubin,Urine Negative (Negative); Blood,Urine Moderate (Negative); Color,Urine Light Yellow; Glucose,Urine (UA) Negative (Negative); Hyaline Casts,Urine 6 /lpf (0-2); Ketones,Urine 4+ (Negative); Leukocyte Esterase,Urine Large (Negative); Mucus,Urine Few /hpf; Nitrite,Urine Negative (Negative); Protein,Urine Trace (Negative); RBC,Urine 10 /hpf (0-5); Specific Gravity,Urine 1.011 (1.001-1.035); Squamous Epithelial Cell,Urine 29 /hpf (0-4); Urobilinogen,Urine <2.0 mg/dL (<2.0); WBC,Urine 21 /hpf (0-5)
[2022-05-20 15:23] LABS: Partial Thromboplastin Time 22.8 sec (22.0-30.0); Prothrombin Time 11.1 sec (9.0-12.0)
--- NOTE | 2022-05-20 15:35 | CT ---
CT CHEST FOR PULMONARY EMBOLISM. EXAMINATION TYPE: CT chest angio for PE DATE OF EXAM: 05/20/2022 INDICATION: chest and abdominal pain. gastric sleeve sx [address] DLP: 2065.2 mGycm, Automated exposure control for dose reduction was used. CONTRAST: Patient injected with 100 mL of Isovue 370. COMPARISON: None TECHNIQUE: CT of the chest is performed on a spiral scan at 2 mm thick sections. Study is performed with intravenous contrast timed for evaluation for pulmonary embolism. This will limit additional po rtions of the evaluation. 3-D MIP images reconstructed by the technologist are reviewed on the compu ter in the coronal and sagittal planes. FINDINGS: No persistent filling defects are evident to suggest an acute pulmonary embolism. No mediastinal or hilar adenopathy enlarged by CT criteria is evident. The ascending aorta diameter at the level of the main pulmonary artery is 2.6 cm. The main pulmonary artery diameter at the bifur cation is 2.6 cm. There is a moderate pericardial effusion present. Lung windows are clear. Limited CT section through the upper abdomen are unremarkable. IMPRESSIONS: 1. No acute pulmonary embolism.
[2022-05-20 15:41] LABS: ALT 43 U/L (4-34); AST 37 U/L (14-36); African American GFR (CKD) >90 (>60 ml/min/1.73 sqM); Albumin 4.3 g/dL (3.5-5.0); Alkaline Phosphatase 76 U/L (38-126); Amylase 40 U/L (30-110); Anion Gap 18 mmol/L; Blood Urea Nitrogen 4 mg/dL (7-17); Calcium 9.1 mg/dL (8.4-10.2); Carbon Dioxide 19 mmol/L (22-30); Chloride 105 mmol/L (98-107); Glucose 80 mg/dL (74-99); Lipase 204 U/L (23-300); Non-African American GFR(CKD) >90 (>60 ml/min/1.73 sqM); Potassium 3.2 mmol/L (3.5-5.1); Sodium 142 mmol/L (137-145); Total Bilirubin 0.5 mg/dL (0.2-1.3); Total Protein 6.4 g/dL (6.3-8.2)
[2022-05-20] MEDS ORDERED: ACETAMINOPHEN TAB 325 MG TAB PO PRN (15:49)
[2022-05-20] MEDS ORDERED: NALOXONE 0.4 MG/ML 1 ML VIAL IV PRN (15:49)
--- NOTE | 2022-05-20 16:19 | CT ---
EXAMINATION TYPE: CT abdomen pelvis w con DATE OF EXAM: 05/20/2022 COMPARISON: None INDICATION: chest and abdominal pain. gastric sleeve sx 1 month ago DLP: 2065.2 mGycm, Automated exposure control for dose reduction was used. CONTRAST: 100 mL of Isovue 370. Study performed without Oral Contrast TECHNIQUE: Axial images were obtained from above the diaphragm to the pubic rami in the axial plane a t 5 mm thick sections. Reconstructed images are reviewed on the computer in the coronal plane. FINDINGS: Limited CT sections are obtained the lung bases. The lung bases are clear. Small to moderate perica rdial effusion is present. CT ABDOMEN: Gastric sleeve surgery changes are evident. No suspicious abnormal collections or inflamm atory changes are evident. No free air is evident. Liver: Normal Spleen: Normal Pancreas: Normal Adrenal glands: The adrenal glands are normal. Gallbladder: Not identified. Kidneys: No masses are evident. No hydronephrosis is present. No cysts are present. Delayed images were obtained through the kidneys, which remain unremarkable. Aorta: Normal Inferior vena cava: Normal. CT PELVIS: Loops of bowel within the abdomen and pelvis are normal. Study is without oral contrast limiting bowel evaluation. Appendix: Not visualized. There appears to be a prior appendectomy. Correlate with surgical history. Urinary bladder: Normal as visualized. This partially decompressed. Genitourinary structures: Adnexa appear normal. Uterus is unremarkable. Osseous structures: No suspicious lytic or sclerotic lesions. IMPRESSIONS: 1. Small to moderate pericardial effusion. 2. No suspicious acute abdomen or pelvic changes to account for pain1
[2022-05-20] MEDS: ONDANSETRON 4 MG/2 ML VIAL IVP PRN (18:07)
[2022-05-20] MEDS ORDERED: QUEtiapine 25 MG TAB PO PRN (20:36)
[2022-05-20] MEDS ORDERED: ACETAMINOPHEN IV (For NPO) 1,000 MG in EMPTY BAG 1 BAG IVPB PRN (20:37)
[2022-05-20] MEDS ORDERED: Potassium Replacement Protocol 1 EACH MISC MISCELLANE PRN (20:39)
--- NOTE | 2022-05-20 20:46 | P.GSHP ---
History of Present Illness H&P Date: 05/20/22 CHIEF COMPLAINT: Intractable nausea and vomiting with hypokalemia HISTORY OF PRESENT ILLNESS: Amy Piper is a 26-year-old female status post gastric bypass 3 weeks ago. Patient had contracted coronavirus after going to a concert and has chronic nausea as a result. She has not been eating or drinking per bariatric protocol. She also presented with dehydration. She is obtaining fluids at the bariatric center. She was seen in the bariatric center where repeat blood work was performed. Patient presented with severe hypokalemia potassium 2.7 critical value which admission was advised. Patient had complained of intermittent abdominal pain with diarrhea for 5 days. She had complained of chest pain for the last 2 days. As result of her complaints and critical hypokalemia, patient has been admitted. She also reports not taking her antipsychotic medications including lithium due to malabsorption with her recent gastric bypass. PAST MEDICAL HISTORY: 1. Morbid obesity due to excess calories 2. Body mass index of 47.1, initial 3. Gastroesophageal reflux disease 4. Diabetes type II mellitus 5. Generalized anxiety disorder 6. Bipolar disorder 7. Depressive disorder 8. Disk herniation L5 S1 9. Osteoarthritis of the hip, right 10. Osteoarthritis of the knee, right 11. Osteoarthritis of right shoulder PAST SURGICAL HISTORY: 1. Adenoidectomy 2. Appendectomy 3. Orthopedic Surgery 4. Right ankle ORIF 5. Eustachian tubes 6. Right hip pinning 7. Cholecystectomy 8. Gastric bypass, 05/05/2022 HOME MEDICATIONS: Reviewed ALLERGIES: Reviewed. SOCIAL HISTORY: Past tobacco use. FAMILY HISTORY: No family history of ulcerative colitis disease or Crohn's disease. Family history of morbid obesity. No lupus in the family. No reports of stomach or esophageal cancer. REVIEW OF ORGAN SYSTEMS: CONSTITUTIONAL: At height of 5 feet 3.5 inches, her ideal body weight is 140 pounds. She comes in 269 pounds. Her body mass index is 47.1. She is 129 pounds overweight. HEENT: Denies any active troubles with vision or hearing. ENDOCRINE: Denies diabetes. No hypothyroidism. CARDIOVASCULAR: Past reports of palpitations or heart attacks or chest pain. RESPIRATORY: Has daytime somnolence. GASTROINTESTINAL: Denies any bright red blood per rectum. No diarrhea. No constipation. Has gastroesophageal reflux disease. GENITOURINARY: Denies bladder urgency. No recent blood in urine MUSCULOSKELETAL: Has lower back pain and joint pain. Has osteoarthritis of the knees and hips. NEURO: No headaches. No seizure disorders. Has neuropathy. PSYCH: Has depression. No suicidal ideation. Has bipolar disorder. RHEUMATOLOGIC: No lupus. No rheumatoid arthritis. HEMATOLOGIC: Denies any abnormal bleeding or bruising. SKIN: No rash. No skin cancer. PHYSICAL EXAM: VITAL SIGNS: Height 5 foot 3.5 inches, GENERAL: Well-developed in no acute distress. HEENT: No scleral icterus. Extraocular movements grossly intact. Hears conversational speech. No nasal drainage. NECK: Supple without lymphadenopathy. CHEST: Nonlabored respirations with equal bilateral excursions. CARDIOVASCULAR: Regular rate and regular rhythm. Distal 2+ pulses. ABDOMEN: Obese, soft, nontender, nondistended. MUSCULOSKELETAL: No clubbing, cyanosis. She has a cast on her right foot due to recent injury. NEURO: No focal or lateralizing signs. Cranial nerves 2 through 12 grossly within normal limits. PSYCH: Appropriate affect. Alert and oriented to person, place and time. SKIN: Good skin turgor. Well perfused. LABS: Critical value potassium 2.7 symptomatic. CBC within normal limits. Pre- existing elevated liver enzymes STUDIES: CT of the abdomen and pelvis and the pelvic reviewed without bowel obstruction or leaks. This is my independent interpretation. REPORT: CT angiogram for pulmonary embolism was negative. ASSESSMENT: 1. Severe potassium deficiency with hypokalemia, critical value 2. Morbid obesity and excess calories, body mass index of 47.1 to 3.4 3. Gastroesophageal reflux disease 4. Diabetes type II mellitus 5. Generalized anxiety disorder 6. Bipolar disorder 7. Depressive disorder 8. Disk herniation L5 S1 9. Osteoarthritis of the hip, right 10. Osteoarthritis of the knee, right 11. Osteoarthritis of right shoulder 12. Leukocytosis 13. Elevated LFTs 14. Hypertriglyceridemia 15. Vitamin D deficiency 16. Status post gastric bypass 17. Atypical chest pain 18. Abdominal pain 19. Chronic dehydration due to inadequate oral intake 20. Intractable nausea vomiting 21. Noncompliance to the bariatric care PLAN: 1. Correction of severe hypokalemia includes potassium replacement protocol ordered 2. Magnesium replacement order for refractory hypokalemia 3. IV fluid hydration 4. Bariatric full liquid diet including protein shakes started 5. Antiemetics as well as scopolamine patch ordered Past Medical History Past Medical History: GERD/Reflux, Seizure Disorder Additional Past Medical History / Comment(s): hx seizure november 2017 (unknown cau se)., staff infection - 2018, "pelvic bone area". ,pre-diabetic. , back pain., states COVID 2020 and sometimes has difficulty taking a deep breath., states hand tremors. History of Any Multi-Drug Resistant Organisms: None Reported Past Surgical History: Adenoidectomy, Appendectomy, Bariatric Surgery, Cholecystectomy, Orthopedic Surgery Additional Past Surgical History / Comment(s): right ankle stabilized with pins placed. ,right hip repair., tubes in ears. Gastric bypass 04-27-22 Past Anesthesia/Blood Transfusion Reactions: Previous Problems w/ Anesthesia, Postoperative Nausea & Vomiting (PONV) Additional Past Anesthesia/Blood Transfusion Reaction / Comment(s): states she boo and panics when she wakes up Past Psychological History: Anxiety, Bipolar, Depression Smoking Status: Never smoker Past Alcohol Use History: Rare Past Drug Use History: Marijuana - Past Family History Mother Family Medical History: No Reported History Father Family Medical History: Coronary Artery Disease (CAD), Diabetes Mellitus, Deep Vein Thrombosis (DVT), Hyperlipidemia Additional Family Medical History / Comment(s): ETOH issues Medications and Allergies Home Medications Medication Instructions Recorded Confirmed Type QUEtiapine [SEROquel] 100 mg PO HS 07/23/21 05/20/22 History QUEtiapine [SEROquel] 25 mg PO DAILY PRN 12/26/21 05/20/22 History Omeprazole [PriLOSEC] 40 mg PO DAILY #30 cap 04/28/22 05/20/22 Rx Allergies Allergy/AdvReac Type Severity Reaction Status Date / Time nickel Allergy Rash/Hives Verified 05/20/22 15:48 Sulfa (Sulfonamide Allergy Rash/Hives Verified 05/20/22 15:48 Antibiotics) morphine AdvReac Hallucinations, Verified 05/20/22 15:48 gets aggressive and mean. Surgical - Exam Vital Signs Temp Pulse Resp BP Pulse Ox 98 F 60 16 98/62 100 05/20/22 12:12 05/20/22 12:12 05/20/22 12:12 05/20/22 12:12 05/20/22 12:12 Results - Labs 05/20/22 14:57 05/20/22 14:57 Abnormal Lab Results - Last 24 Hours (Table) 05/20/22 05/20/22 Range/Units 14:57 14:57 Potassium 3.2 L (3.5-5.1) mmol/L Carbon Dioxide 19 L (22-30) mmol/L BUN 4 L (7-17) mg/dL AST 37 H (14-36) U/L ALT 43 H (4-34) U/L Urine Appearance Cloudy H (Clear) Urine Protein Trace H (Negative) Urine Ketones 4+ H (Negative) Urine Blood Moderate H (Negative) Ur Leukocyte Esterase Large H (Negative) Urine RBC 10 H (0-5) /hpf Urine WBC 21 H (0-5) /hpf Ur Squamous Epith Cells 29 H (0-4) /hpf Urine Bacteria Moderate H (None) /hpf Hyaline Casts 6 H (0-2) /lpf Urine Mucus Few H (None) /hpf Diabetes panel 05/20/22 Range/Units 14:57 Sodium 142 (137-145) mmol/L Potassium 3.2 L (3.5-5.1) mmol/L Chloride 105 (98-107) mmol/L Carbon Dioxide 19 L (22-30) mmol/L BUN 4 L (7-17) mg/dL Creatinine 0.57 (0.52-1.04) mg/dL Glucose 80 (74-99) mg/dL Calcium 9.1 (8.4-10.2) mg/dL AST 37 H (14-36) U/L ALT 43 H (4-34) U/L Alkaline Phosphatase 76 (38-126) U/L Total Protein 6.4 (6.3-8.2) g/dL Albumin 4.3 (3.5-5.0) g/dL Calcium panel 05/20/22 Range/Units 14:57 Calcium 9.1 (8.4-10.2) mg/dL Albumin 4.3 (3.5-5.0) g/dL Pituitary panel 05/20/22 Range/Units 14:57 Sodium 142 (137-145) mmol/L Potassium 3.2 L (3.5-5.1) mmol/L Chloride 105 (98-107) mmol/L Carbon Dioxide 19 L (22-30) mmol/L BUN 4 L (7-17) mg/dL Creatinine 0.57 (0.52-1.04) mg/dL Glucose 80 (74-99) mg/dL Calcium 9.1 (8.4-10.2) mg/dL Adrenal panel 05/20/22 Range/Units 14:57 Sodium 142 (137-145) mmol/L Potassium 3.2 L (3.5-5.1) mmol/L Chloride 105 (98-107) mmol/L Carbon Dioxide 19 L (22-30) mmol/L BUN 4 L (7-17) mg/dL Creatinine 0.57 (0.52-1.04) mg/dL Glucose 80 (74-99) mg/dL Calcium 9.1 (8.4-10.2) mg/dL Total Bilirubin 0.5 (0.2-1.3) mg/dL AST 37 H (14-36) U/L ALT 43 H (4-34) U/L Alkaline Phosphatase 76 (38-126) U/L Total Protein 6.4 (6.3-8.2) g/dL Albumin 4.3 (3.5-5.0) g/dL
[2022-05-20] MEDS: LORazepam 1 MG/0.5 ML VIAL IV PRN (22:05)
[2022-05-20] MEDS: QUEtiapine 100 MG TAB PO SCH (22:08)
[2022-05-20] MEDS: SCOPOLAMINE 1 MG/72 HR PATCH TRANSDERM SCH (22:08)
[2022-05-20] MEDS: MAGNESIUM SULFATE-D5W PMX 1 GM in DEXTROSE/WATER 1 100ML.BAG IVPB SCH (22:10)
[2022-05-21] MEDS: POTASSIUM CHLORIDE 10 MEQ in WATER FOR INJECTION 1 100ML.BAG IVPB SCH ×10 (00:03→20:37)
[2022-05-21] MEDS: MAGNESIUM SULFATE-D5W PMX 1 GM in DEXTROSE/WATER 1 100ML.BAG IVPB SCH (05:59)
[2022-05-21] MEDS: SODIUM CHLORIDE 0.9% 1,000 ML IV SCH ×3 (06:02→22:04)
[2022-05-21] MEDS: PANTOPRAZOLE 40 MG/10 ML VIAL IV SCH (08:06)
[2022-05-21] MEDS: ENOXAPARIN 30 MG/0.3 ML SYRINGE SQ SCH (08:07)
[2022-05-21] MEDS: ONDANSETRON 4 MG/2 ML VIAL IVP PRN ×2 (09:01→18:02)
[2022-05-21 10:56] LABS: African American GFR (CKD) 144.8 (60.0-200.0); Albumin 3.5 g/dL (3.8-4.9); Albumin/Globulin Ratio 2.06 (1.60-3.17); Anion Gap 15.5 mmol/L (10.00-18.00); BUN/Creat Ratio 2.67 Ratio (12.00-20.00); Blood Urea Nitrogen 1.6 mg/dL (9.0-27.0); Calcium 8.4 mg/dL (8.7-10.3); Carbon Dioxide 16.5 mmol/L (20.0-27.5); Globulin 1.7 g/dL (1.6-3.3); Magnesium 2.4 mg/dL (1.5-2.4); Non-African American GFR(CKD) 124.9 (60.0-200.0); Phosphorus 2.6 mg/dL (2.4-5.1); Total Bilirubin 0.2 mg/dL (0.30-1.20); Total Protein 5.2 g/dL (6.2-8.2)
[2022-05-21] MEDS ORDERED: POTASSIUM CHLORIDE ER 20 MEQ TAB.ER PO SCH (12:00)
[2022-05-21] MEDS: LORazepam 1 MG/0.5 ML VIAL IV PRN ×2 (12:52→19:58)
--- NOTE | 2022-05-21 16:15 | P.PN ---
Subjective Progress Note Date: 05/21/22 CHIEF COMPLAINT: intractable nausea and vomiting with hypokalemia HISTORY OF PRESENT ILLNESS: Amy Piper is a 26-year-old female status post gastric bypass 3 weeks ago. Patient had contracted coronavirus after going to a concert and has chronic nausea as a result. She has not been eating or drinking per bariatric protocol. She also presented with dehydration. Patient was found to have hypokalemia with a critical potassium of 2.7 at the bariatric clinic. Patient has been having intermittent abdominal pain with diarrhea for 5 days. She also complained of some chest pain for 2 days. Patient has not been taking her antipsychotic medications due to malabsorption with her recent gastric bypa ss. Afebrile. Computed tomography scan of pelvis small to moderate pericardial effusion. No suspicious acute abdomen or pelvic changes to account for pain. Chest CTA no acute pulmonary embolism. WBC is 8.2 sodium is 142 potassium did go up from 2.7-3.2 and is now back down at 3.0 creatinine 0.6 LFTs normal troponin is negative lipase 204 magnesium is 2.4 phosphorus is 2.6 urinalysis does show 29 squamous epithelial cells. Patient reports no diarrhea today. She did have some nausea. PHYSICAL EXAM: VITAL SIGNS: Reviewed GENERAL: Well-developed in no acute distress. HEENT: No sclera icterus. Extraocular movements grossly intact. Moist buccal mucosa. Head is atraumatic, normocephalic. Hears conversational speech. No nasal drainage. NECK: Supple without lymphadenopathy. CHEST: Non-labored respirations and equal bilateral excursions. CARDIOVASCULAR: Palpable 2+ radial pulses. ABDOMEN: Soft. Nondistended. Nontender MUSCULOSKELETAL: No clubbing or cyanosis. NEUROLOGIC: No focal or lateralizing signs. Cranial nerves II through XII grossly intact. PSYCH: Appropriate affect. Alert and oriented to person, place and time. SKIN: Well perfused. Good skin turgor. ASSESSMENT: 1. Severe potassium deficiency with hypokalemia, critical value 2. Morbid obesity and excess calories, body mass index of 47.1 to 3.4 3. Gastroesophageal reflux disease 4. Diabetes type II mellitus 5. Generalized anxiety disorder 6. Bipolar disorder 7. Depressive disorder 8. Disk herniation L5 S1 9. Osteoarthritis of the hip, right 10. Osteoarthritis of the knee, right 11. Osteoarthritis of right shoulder 12. Leukocytosis 13. Elevated LFTs 14. Hypertriglyceridemia 15. Vitamin D deficiency 16. Status post gastric bypass 17. Atypical chest pain 18. Abdominal pain 19. Chronic dehydration due to inadequate oral intake 20. Intractable nausea vomiting 21. Noncompliance to the bariatric care PLAN: -Continue to correct potassium -Continue IV fluids -Continue bariatric full liquid diet -Consult placed for nephrology regarding patient's continued hypokalemia -Consult placed for psychiatry regarding management of psychiatric meds with recent Janak-en-Y surgery as well as meds side effects of hypokalemia -Continue supportive care Physician Application Administrator note has been reviewed by physician. Signing provider agrees with the documented findings, assessment, and plan of care. CHIEF COMPLAINT: Intractable nausea and vomiting with hypokalemia HISTORY OF PRESENT ILLNESS: Amy Juarez is a 26-year-old female status post gastric bypass including recent coronavirus pneumonia less than 1-2 weeks ago following her surgery. Patient reports chest pressure. CT of the abdomen and pelvis and CT angiogram negative for acute pulmonary embolism or acute intra- abdominal process. She reports intolerance due to taste multiple foods. Separately, she's had multiple potassium supplements with minimal improvement of her potassium level. She has inability to tolerate her antipsychotic medications. REVIEW OF ORGAN SYSTEMS: Reports chest pressure. No shortness of breath. Reports nausea. PHYSICAL EXAM: VITAL SIGNS: Reviewed GENERAL: Well-developed in no acute distress. HEENT: No scleral icterus. Extraocular movements grossly intact. Hears conver sational speech. No nasal drainage. NECK: Supple without lymphadenopathy. CHEST: Nonlabored respirations with equal bilateral excursions. CARDIOVASCULAR: Regular rate and regular rhythm. Distal 2+ pulses. ABDOMEN: Obese, soft, nontender, nondistended. MUSCULOSKELETAL: No clubbing, cyanosis. She has a cast on her right foot due to recent injury. NEURO: No focal or lateralizing signs. Cranial nerves 2 through 12 grossly within normal limits. PSYCH: Appropriate affect. Alert and oriented to person, place and time. SKIN: Good skin turgor. Well perfused. LABS: Repeat potassium 3.0 after 60 mEq potassium REPORT: CT of the abdomen and pelvis final report demonstrates movement moderate pericardial effusion ASSESSMENT: 1. Severe potassium deficiency with hypokalemia, critical value 2. Morbid obesity and excess calories, body mass index of 47.1 to 3.4 3. Gastroesophageal reflux disease 4. Diabetes type II mellitus 5. Generalized anxiety disorder 6. Bipolar disorder 7. Depressive disorder 8. Disk herniation L5 S1 9. Osteoarthritis of the hip, right 10. Osteoarthritis of the knee, right 11. Osteoarthritis of right shoulder 12. Leukocytosis 13. Elevated LFTs 14. Hypertriglyceridemia 15. Vitamin D deficiency 16. Status post gastric bypass 17. Atypical chest pain 18. Abdominal pain 19. Chronic dehydration due to inadequate oral intake 20. Intractable nausea vomiting 21. Noncompliance to the bariatric care 22. Pericardial effusion, new 23. Recalcitrant hypokalemia PLAN: 1. She has recalcitrant hypokalemia despite magnesium, 60 mg of potassium with moderate wasting. Side effect of Seroquel including persistent hypokalemia. Consultation to nephrology for persistent potassium wasting requested. 2. Patient has inability to tolerate her antipsychotic medications. Psychiatry consulted for oral versus sublingual alternatives were antipsychotic medications 3. Our final read of CT chest and CT abdomen and pelvis, new finding of mild to moderate pericardial effusion. This patient is symptomatic, echo ordered including cardiology consultation advised. 4. Symptomatic large pericardial effusion, inpatient hospitalization advised Objective - Vital Signs Vital signs: Vital Signs Temp 98.1 F 05/21/22 11:18 Pulse 71 05/21/22 11:18 Resp 16 05/21/22 11:18 BP 101/67 05/21/22 11:18 Pulse Ox 95 05/21/22 11:18 FiO2 Intake & Output 05/20/22 05/21/22 05/21/22 18:59 06:59 18:59 Weight 95.254 kg Other: # Voids 1 - Labs CBC & Chem 7: 05/20/22 14:57 05/21/22 07:19 Labs: Abnormal Lab Results - Last 24 Hours (Table) 05/21/22 Range/Units 07:19 Potassium 3.0 L (3.5-5.5) mmol/L Chloride 110 H (96-109) mmol/L Carbon Dioxide 16.5 L (20.0-27.5) mmol/L BUN 1.6 L (9.0-27.0) mg/dL BUN/Creatinine Ratio 2.67 L (12.00-20.00) Ratio Calcium 8.4 L (8.7-10.3) mg/dL Total Bilirubin 0.20 L (0.30-1.20) mg/dL Total Protein 5.2 L (6.2-8.2) g/dL Albumin 3.5 L (3.8-4.9) g/dL Microbiology - Last 24 Hours (Table) 05/20/22 14:57 Urine Culture - Preliminary Urine,Voided
[2022-05-21] MEDS: QUEtiapine 100 MG TAB PO SCH (22:03)
[2022-05-22] MEDS: LORazepam 1 MG/0.5 ML VIAL IV PRN ×3 (00:44→21:17)
[2022-05-22] MEDS: 0.9% NACL WITH KCL 40 MEQ/L 1,000 ML IV SCH ×2 (01:05→10:15)
[2022-05-22] MEDS: POTASSIUM CHLORIDE 10 MEQ in WATER FOR INJECTION 1 100ML.BAG IVPB SCH ×4 (07:31→11:38)
[2022-05-22] MEDS: ONDANSETRON 4 MG/2 ML VIAL IVP PRN ×3 (07:31→19:53)
[2022-05-22 07:43] LABS: ALT 38 U/L (4-34); AST 35 U/L (14-36); African American GFR (CKD) >90 (>60 ml/min/1.73 sqM); Albumin 3.6 g/dL (3.5-5.0); Albumin/Globulin Ratio 1.7; Alkaline Phosphatase 62 U/L (38-126); Anion Gap 13 mmol/L; Blood Urea Nitrogen <2 mg/dL (7-17); Calcium 8.6 mg/dL (8.4-10.2); Carbon Dioxide 17 mmol/L (22-30); Chloride 109 mmol/L (98-107); Globulin 2.1 g/dL; Glucose 72 mg/dL (74-99); Non-African American GFR(CKD) >90 (>60 ml/min/1.73 sqM); Potassium 3.6 mmol/L (3.5-5.1); Sodium 139 mmol/L (137-145); Total Bilirubin 0.6 mg/dL (0.2-1.3); Total Protein 5.7 g/dL (6.3-8.2)
[2022-05-22] MEDS: ENOXAPARIN 30 MG/0.3 ML SYRINGE SQ SCH (09:07)
[2022-05-22] MEDS: PANTOPRAZOLE 40 MG/10 ML VIAL IV SCH (09:10)
--- NOTE | 2022-05-22 10:43 | CA ---
Transthoracic Echo Report Name: Amy Juarez Age: 26 Gender: F : 1995 Exam Date: 05/22/2022 08:34 Exam Location: [facility] Ht (in): 62 Wt (lb): 210 Ordering Physician: Lola Hatfield MD Attending/Referring Phys: Alysia LAGUNA Associate Programmer Analyst Yovana Douglas RDCS Procedure CPT: Indications: pericardial effusion Cardiac Hx: Technical Quality: Fair Contrast 1: Total Dose (mL): Contrast 2: Total Dose (mL): MEASUREMENTS (Male / Female) Normal Values 2D ECHO LV Diastolic Diameter PLAX 4.2 cm 4.2 - 5.9 / 3.9 - 5.3 cm LV Systolic Diameter PLAX 2.8 cm IVS Diastolic Thickness 0.9 cm 0.6 - 1.0 / 0.6 - 0.9 cm LVPW Diastolic Thickness 1.2 cm 0.6 - 1.0 / 0.6 - 0.9 cm LV Relative Wall Thickness 0.5 RV Internal Dim ED PLAX 2.8 cm LA Systolic Diameter LX 3.7 cm 3.0 - 4.0 / 2.7 - 3.8 cm M-MODE Aortic Root Diameter MM 2.4 cm LA Systolic Diameter MM 3.5 cm LA Ao Ratio MM 1.5 MV E Point Septal Separation 0.5 cm AV Cusp Separation MM 1.5 cm DOPPLER MV Area PHT 4.0 cm??? Mitral E Point Velocity 81.5 cm/s Mitral A Point Velocity 51.0 cm/s Mitral E to A Ratio 1.6 MV Deceleration Time 191.3 ms MV E' Velocity 11.1 cm/s Mitral E to MV E' Ratio 7.4 TR Peak Velocity 231.0 cm/s TR Peak Gradient 21.4 mmHg Right Ventricular Systolic Press 25.9 mmHg FINDINGS Left Ventricle Left ventricular ejection fraction is estimated at 50-55%. Mildly increased left ventricular wall thickness. Right Ventricle Normal right ventricular size and function. Right Atrium Normal right atrial size. Left Atrium Normal left atrial size. Mitral Valve Structurally normal mitral valve. Mild mitral regurgitation. Aortic Valve Trileaflet aortic valve. Tricuspid Valve Structurally normal tricuspid valve. Mild tricuspid regurgitation. Pulmonic Valve Structurally normal pulmonic valve. Pericardium Trace of pericardial effusion. Aorta Normal size aortic root and proximal ascending aorta. CONCLUSIONS Normal left ventricular dimension and systolic function If any trace pericardial effusion Previewed by: Dr. Ra Miller MD (Electronically Signed) Final Date: 22 May 2022 10:42
[2022-05-22] MEDS ORDERED: POTASSIUM CHLORIDE ER 20 MEQ TAB.ER PO STA (11:55)
--- NOTE | 2022-05-22 11:57 | P.NPCON ---
History of Present Illness - Reason for Consult hypokalemia - History of Present Illness Patient is a 26-year-old female with history of obesity status post gastric bypass surgery about 3 weeks ago. History of recent coronavirus infection with significant nausea. Patient was admitted to the hospital with decreased oral intake nausea as well as abdominal pain and diarrhea. Labs revealed serum potassium of 2.7. Creatinine was 0.5 mg/dL. Patient was also mildly acidotic with CO2 of 16.5 yesterday. Serum potassium has an replaced and creatinine remains at 0.4. CO2 today is at 17. Diarrhea is somewhat improved but nausea persists. Review of Systems As per HPI Past Medical History Past Medical History: GERD/Reflux, Seizure Disorder Additional Past Medical History / Comment(s): hx seizure november 2017 (unknown cause)., staff infection - 2017, "pelvic bone area". ,pre-diabetic. , back pain., states COVID 2020 and sometimes has difficulty taking a deep breath., states hand tremors. History of Any Multi-Drug Resistant Organisms: None Reported Past Surgical History: Adenoidectomy, Appendectomy, Bariatric Surgery, Cholecystectomy, Orthopedic Surgery Additional Past Surgical History / Comment(s): right ankle stabilized with pins placed. ,right hip repair., tubes in ears. Gastric bypass 04-27-22 Past Anesthesia/Blood Transfusion Reactions: Previous Problems w/ Anesthesia, Postoperative Nausea & Vomiting (PONV) Additional Past Anesthesia/Blood Transfusion Reaction / Comment(s): states she boo and panics when she wakes up Past Psychological History: Anxiety, Bipolar, Depression Smoking Status: Never smoker Past Alcohol Use History: Rare Past Drug Use History: Marijuana - Past Family History Mother Family Medical History: No Reported History Father Family Medical History: Coronary Artery Disease (CAD), Diabetes Mellitus, Deep Vein Thrombosis (DVT), Hyperlipidemia Additional Family Medical History / Comment(s): ETOH issues Medications and Allergies Home Medications Medication Instructions Recorded Confirmed Type QUEtiapine [SEROquel] 100 mg PO HS 07/23/21 05/20/22 History QUEtiapine [SEROquel] 25 mg PO DAILY PRN 12/26/21 05/20/22 History Omeprazole [PriLOSEC] 40 mg PO DAILY #30 cap 04/28/22 05/20/22 Rx Allergies Allergy/AdvReac Type Severity Reaction Status Date / Time nickel Allergy Rash/Hives Verified 05/20/22 15:48 Sulfa (Sulfonamide Allergy Rash/Hives Verified 05/20/22 15:48 Antibiotics) morphine AdvReac Hallucinations, Verified 05/20/22 15:48 gets aggressive and mean. Physical Exam Vitals: Vital Signs Temp Pulse Resp BP Pulse Ox 05/22/22 11:24 97.5 F L 71 15 103/67 100 05/22/22 04:14 97.6 F 53 L 14 98/65 98 05/21/22 20:00 16 05/21/22 19:14 98.0 F 69 15 100/66 98 Intake and Output 05/21/22 05/22/22 05/22/22 22:59 06:59 14:59 Intake Total 400 Balance 400 Intake: Intake, IV Titration 400 Amount Potassium Chloride 10 meq 100 In Water For Injection 1 100ml.bag @ 100 mls/hr IVPB Q1HR [facility] Rx#: [id number] Sodium Chloride 0.9% 1, 300 000 ml @ 100 mls/hr IV . Q10H [facility] Rx#:[id number] Other: # Voids 2 1 Awake, comfortable, not in any acute distress Examination of the heart S1 and S2 Examination of the lungs bilateral breath sounds are heard Abdomen is soft nontender Exertion lower extremity shows no evidence of edema SANDBLASTER PAINT SPRAYER exam grossly intact Results - Lab Results Most recent lab results Calcium 8.6 mg/dL (8.4-10.2) 05/22/22 07:02 Phosphorus 2.6 mg/dL (2.4-5.1) 05/21/22 07:19 Magnesium 2.4 mg/dL (1.5-2.4) 05/21/22 07:19 05/20/22 14:57 05/22/22 07:02 Assessment and Plan Assessment: 1. Hypokalemia associated with GI fluid loss as well as decreased oral intake status post replacement. Magnesium 2.4 on 05/21/2022 2. Metabolic acidosis associated with diarrhea 3. Status post gastric bypass surgery about 3 weeks ago 4. Nausea and vomiting most likely related to recent Covid infection. History of bariatric surgery about 3 weeks ago 5. Obesity status post bariatric surgery 3 weeks ago Plan: Add oral sodium bicarb Replace with oral potassium Encourage intake of high potassium-containing foods Repeat UA
--- NOTE | 2022-05-22 12:58 | P.CRDCN ---
History of Present Illness History of present illness: This is a 26 year old female with a past medical history of anxiety, obesity, underwent bariatric gastric bypass surgery on 04/27/[address] Hatfield. Patient followed with Dr. Graham in the office for pre operative risk assessment. She presented to the ER with complaints of abdominal pain, dizziness, shortness of breath. States she has not been feeling well at home. She had some intermittent chest discomfort, non-radiating, non-exertional with no associated symptoms. She presented to the emergency department with concerns for dehydration and also with hypokalemia. Patient has been having intermittent abdominal pain with diarrhea for 5 days as well. She denies any palpitations, lightheadedness, dizziness, syncope or near syncope. She denies any symptoms of orthopnea or PND. Patient denies history of CAD, MT, Stroke or seizure. DIAGNOSTICS * Echocardiogram this admission revealed an EF of 5055 %, mildly increased LVH, trace pericardial effusion. * Echo 02/12/2022 in the office revealed EF 55%, mild to moderate MR, small pericardial effusion with no cardiac tamponade physiology. * Exercise stress test 01/29/2022- normal EKG response to exercise with no evidence of stress induced ischemia * Chest CTA- no evidence of pulmonary embolism reported. * CT abdomen and pelvis reported a small to moderate pericardial effusion. No suspicious acute abdomen or pelvic changes reported. * Laboratory reviewed, CBC unremarkable, sodium 139, potassium 3.6, BUN less than 2, serum creatinine 0.4, blood sugar 72 * Current home medications include Seroquel and Prilosec REVIEW OF SYSTEMS At the time of my exam: CONSTITUTIONAL: Denies fever or chills. CARDIOVASCULAR: Denies chest pain, shortness of breath, orthopnea, PND or palpitations. RESPIRATORY: Denies cough. GASTROINTESTINAL: Denies abdominal pain, diarrhea, constipation, nausea or vomiting. MUSCULOSKELETAL: Denies myalgias. NEUROLOGIC: Denies numbness, tingling, headacbe or weakness. ENDOCRINE: Denies fatigue, weight change, polydipsia or polyurina. GENITOURINARY: Denies burning, hematuria or urgency with micturation. HEMATOLOGIC: Denies history of anemia or bleeding. PHYSICAL EXAMINATION Blood pressure 98/65, heart 53, afebrile, saturation 98% on room air CONSTITUTIONAL: No apparent distress. HEENT: Head is normocephalic. Pupils are equal, round. Sclerae anicteric. Mucous membranes of the mouth are moist. No JVD. No carotid bruit. CHEST EXAMINATION: Lungs are clear to auscultation. No chest wall tenderness is noted on palpation or with deep breathing. HEART EXAMINATION: Regular rate and rhythm. S1, S2 heard. No murmurs, gallops or rub. ABDOMEN: Soft, nontender. Positive bowel sounds. EXTREMITIES: 2+ peripheral pulses, no lower extremity edema and no calf tenderness. NEUROLOGIC EXAMINATION: Patient is awake, alert and oriented x3. ASSESSMENT Trace/Trivial Pericardial effusion, no evidence of cardiac tamponade Hypokalemia Status post Bariatric gastric bypass surgery on 04/27/2022 GERD Anxiety History of Bipolar disorder History of depression Obesity Osteoarthritis PLAN Repeat echocardiogram reviewed with normal LV systolic function with trace pericardial effusion, no cardiac tamponade No further inpatient workup from a cardiology perspective. We'll follow the patient as needed. Please reconsult if needed Nurse practitioner note has been reviewed by physician. Signing provider agrees with the documented findings, assessment, and plan of care. Past Medical History Past Medical History: GERD/Reflux, Seizure Disorder Additional Past Medical History / Comment(s): hx seizure november 2017 (unknown cause)., staff infection - 2017, "pelvic bone area". ,pre-diabetic. , back pain., states COVID 2020 and sometimes has difficulty taking a deep breath., states hand tremors. History of Any Multi-Drug Resistant Organisms: None Reported Past Surgical History: Adenoidectomy, Appendectomy, Bariatric Surgery, Cholecystectomy, Orthopedic Surgery Additional Past Surgical History / Comment(s): right ankle stabilized with pins placed. ,right hip repair., tubes in ears. Gastric bypass 04-27-22 Past Anesthesia/Blood Transfusion Reactions: Previous Problems w/ Anesthesia, Postoperative Nausea & Vomiting (PONV) Additional Past Anesthesia/Blood Transfusion Reaction / Comment(s): states she boo and panics when she wakes up Past Psychological History: Anxiety, Bipolar, Depression Smoking Status: Never smoker Past Alcohol Use History: Rare Past Drug Use History: Marijuana - Past Family History Mother Family Medical History: No Reported History Father Family Medical History: Coronary Artery Disease (CAD), Diabetes Mellitus, Deep Vein Thrombosis (DVT), Hyperlipidemia Additional Family Medical History / Comment(s): ETOH issues Medications and Allergies Home Medications Medication Instructions Recorded Confirmed Type QUEtiapine [SEROquel] 100 mg PO HS 07/23/21 05/20/22 History QUEtiapine [SEROquel] 25 mg PO DAILY PRN 12/26/21 05/20/22 History Omeprazole [PriLOSEC] 40 mg PO DAILY #30 cap 04/28/22 05/20/22 Rx Allergies Allergy/AdvReac Type Severity Reaction Status Date / Time nickel Allergy Rash/Hives Verified 05/20/22 15:48 Sulfa (Sulfonamide Allergy Rash/Hives Verified 05/20/22 15:48 Antibiotics) morphine AdvReac Hallucinations, Verified 05/20/22 15:48 gets aggressive and mean. Physical Exam Vitals: Vital Signs Temp Pulse Resp BP Pulse Ox 05/22/22 04:14 97.6 F 53 L 14 98/65 98 05/21/22 20:00 16 05/21/22 19:14 98.0 F 69 15 100/66 98 05/21/22 11:18 98.1 F 71 16 101/67 95 Intake and Output 05/21/22 05/22/22 05/22/22 22:59 06:59 14:59 Intake Total 400 Balance 400 Intake: Intake, IV Titration 400 Amount Potassium Chloride 10 meq 100 In Water For Injection 1 100ml.bag @ 100 mls/hr IVPB Q1HR [facility] Rx#: [id number] Sodium Chloride 0.9% 1, 300 000 ml @ 100 mls/hr IV . Q10H [facility] Rx#:[id number] Other: # Voids 2 1 Results 05/20/22 14:57 05/22/22 07:02 Cardiac Enzymes 05/21/22 05/22/22 Range/Units 07:19 07:02 AST 26 35 (13-35) U/L Comprehensive Metabolic Panel 05/21/22 05/21/22 05/22/22 Range/Units 07:19 20:28 07:02 Sodium 142 139 (135-145) mmol/L Potassium 3.0 L 3.6 3.6 (3.5-5.5) mmol/L Chloride 110 H 109 H (96-109) mmol/L Carbon Dioxide 16.5 L 17 L (20.0-27.5) mmol/L BUN 1.6 L <2 L (9.0-27.0) mg/dL Creatinine 0.6 0.44 L (0.6-1.5) mg/dL Glucose 88 72 L (70-110) mg/dL Calcium 8.4 L 8.6 (8.7-10.3) mg/dL AST 26 35 (13-35) U/L ALT 35 38 H (8-44) U/L Alkaline Phosphatase 57 62 (41-126) U/L Total Protein 5.2 L 5.7 L (6.2-8.2) g/dL Albumin 3.5 L 3.6 (3.8-4.9) g/dL Current Medications Generic Name Dose Route Start Last Admin Trade Name Freq PRN Reason Stop Dose Admin Acetaminophen 650 mg 05/20/22 15:49 Acetaminophen Tab 325 Mg Tab PO Q6HR PRN Mild Pain or Fever > 100.5 Enoxaparin Sodium 30 mg 05/21/22 09:00 05/21/22 08:07 Enoxaparin 30 Mg/0.3 Ml Syringe SQ 30 mg DAILY [facility] Administration Potassium Chloride/Sodium Chloride 1,000 mls @ 100 mls/hr 05/21/22 23:30 05/22/22 01:05 Ns-Kcl 40 Meq/L Iv Solution IV 100 mls/hr .Q10H [facility] Administration Potassium Chloride 10 meq/ IV 100 mls @ 100 mls/hr 05/22/22 06:00 05/22/22 07:31 Solution IVPB 05/22/22 09:59 100 mls/hr Q1HR [facility] Administration Protocol Lorazepam 1 mg 05/20/22 21:56 05/22/22 07:32 Lorazepam 1 Mg/0.5 Ml Vial IV 1 mg Q4HR PRN Administration Anxiety Miscellaneous Information 1 each 05/20/22 20:39 Potassium Replacement Protocol 1 Each Misc MISCELLANE DAILY PRN Per Protocol Protocol Naloxone HCl 0.2 mg 05/20/22 15:49 Naloxone 0.4 Mg/Ml 1 Ml Vial IV Q2M PRN Opioid Reversal Ondansetron HCl 4 mg 05/20/22 15:50 05/22/22 07:31 Ondansetron 4 Mg/2 Ml Vial IVP 4 mg Q6HR PRN Administration Nausea And Vomiting Pantoprazole Sodium 40 mg 05/21/22 09:00 05/21/22 08:06 Pantoprazole 40 Mg/10 Ml Vial IV 40 mg DAILY [facility] Administration Quetiapine Fumarate 25 mg 05/20/22 20:36 Quetiapine 25 Mg Tab PO DAILY PRN Anxiety Quetiapine Fumarate 100 mg 05/20/22 21:00 05/21/22 22:03 Quetiapine 100 Mg Tab PO Not Given HS [facility] Scopolamine 1 patch 05/20/22 21:00 05/20/22 22:08 Scopolamine 1 Mg/72 Hr Patch TRANSDERM 1 patch Q72H [facility] Administration Intake and Output 05/21/22 05/22/22 05/22/22 22:59 06:59 14:59 Intake Total 400 Balance 400 Intake: Intake, IV Titration 400 Amount Potassium Chloride 10 meq 100 In Water For Injection 1 100ml.bag @ 100 mls/hr IVPB Q1HR [facility] Rx#: [id number] Sodium Chloride 0.9% 1, 300 000 ml @ 100 mls/hr IV . Q10H [facility] Rx#:[id number] Other: # Voids 2 1 05/20/22 14:57 05/22/22 07:02
[2022-05-22] MEDS ORDERED: LACTATED RINGERS 1,000 ML IV ONE (13:50)
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
[2022-05-22 15:48] LABS: Appearance,Urine Clear (Clear); Bilirubin,Urine Negative (Negative); Blood,Urine Negative (Negative); Color,Urine Light Yellow; Glucose,Urine (UA) Negative (Negative); Ketones,Urine 4+ (Negative); Leukocyte Esterase,Urine Negative (Negative); Nitrite,Urine Negative (Negative); PH, Urine 5.5 (5.0-8.0); Protein,Urine Negative (Negative); Specific Gravity,Urine 1.014 (1.001-1.035); Urobilinogen,Urine <2.0 mg/dL (<2.0)
--- NOTE | 2022-05-22 17:00 | P.PCN ---
Date of Procedure: 05/22/22 Description of Procedure: PREOPERATIVE DIAGNOSIS: Dysphagia. Atypical chest pain s/p Janak-en-y gastric bypass. Nausea with vomiting. Morbid obesity. POSTOPERATIVE DIAGNOSIS: Dysphagia. Atypical chest pain s/p Janak-en-y gastric bypass. Nausea with vomiting. Morbid obesity. Gastrojejunal stricture without chronic ulcer without perforation OPERATION: Esophagogastrojejunoscopy with balloon dilatation from 8 to 10 mm. SURGEON: Lola Hatfield MD ANESTHESIA: MAC. INDICATIONS: The patient is a 26-year-old female who presents with a history of dysphagia, gastric bypass including new-onset nausea and vomiting. Benefits and risks of the procedure were described. Informed consent was obtained. DESCRIPTION: The patient was brought into the endoscopy suite and laid in the left lateral decubitus position. After a timeout was confirmed, the procedure was initiated. An Olympus gastroscope was passed along the posterior oropharynx down to the distal esophagus where the squamocolumnar junction was unremarkable. The gastric pouch was entered. A gastrojejunal stricture of 8 mm was found as the adult gastroscope was 9.5 mm in size. A Tessella balloon dilator was placed through the scope. Final insufflation up to 10 mm was performed with a total of 2 minutes. The scope was advanced up to 60 cm from the incisors into the Janak limb. The mucosa of the gastrojejunal anastomosis was intact. However no chronic gastrojejunal marginal ulcer was encountered. No full-thickness injury was encountered. The GI tract was desufflated. The patient tolerated the procedure well. FINDINGS:. Stricture of approximately 8 mm encountered. No chronic gastrojejunal ulceration encountered. Successful balloon dilatation to 10 mm. Gastric pouch 3 cm. RECOMMENDATIONS: Start combined therapy of Carafate and omeprazole of at least 4 weeks.
[2022-05-22] MEDS: SUCRALFATE 1 GM TAB PO SCH (17:25)
--- NOTE | 2022-05-22 18:08 | P.PN ---
Progress Note - Text Progress Note Date: 05/22/22 I had an extended discussion with Amy including imaging findings and treatment plan. Patient diagnosed with pericardial effusion for which cardiology consultation was obtained and deemed stable. Appreciate nephrology consultation for persistent hypokalemia. Patient reports intolerance to the large pills she has a recent gastric bypass. Due to bypass, all medications must be liquid form or crushed, cut or open capsule. Appreciate psychiatry consultation for adjustment of medications to liquid form. Patient reports she wants to discontinue Seroquel due to side effects of hypokalemia including gastritis and recent gastric bypass. Patient will need additional dilations due to stricture found on upper endoscopy. As she has multiple new medications, observation including IV fluid hydration and correction of potassium to 4.0 described. Likely discharge in 24 hours.
[2022-05-22] MEDS: SODIUM BICARBONATE TAB 650 MG TAB PO SCH (20:00)
[2022-05-22] MEDS: OLANZapine ODT 5 MG TAB PO SCH (21:13)
[2022-05-23] MEDS: 0.9% NACL WITH KCL 40 MEQ/L 1,000 ML IV SCH ×4 (00:41→20:55)
[2022-05-23 05:35] LABS: African American GFR (CKD) >90 (>60 ml/min/1.73 sqM); Anion Gap 11 mmol/L; Blood Urea Nitrogen <2 mg/dL (7-17); Calcium 8.9 mg/dL (8.4-10.2); Carbon Dioxide 21 mmol/L (22-30); Chloride 107 mmol/L (98-107); Glucose 74 mg/dL (74-99); Non-African American GFR(CKD) >90 (>60 ml/min/1.73 sqM); Potassium 3.8 mmol/L (3.5-5.1); Sodium 139 mmol/L (137-145)
[2022-05-23] MEDS: SUCRALFATE 1 GM TAB PO SCH ×2 (08:22→17:21)
[2022-05-23] MEDS: PANTOPRAZOLE 40 MG/10 ML VIAL IV SCH (08:23)
[2022-05-23] MEDS: SODIUM BICARBONATE TAB 650 MG TAB PO SCH ×2 (08:23→20:55)
[2022-05-23] MEDS: OLANZapine ODT 5 MG TAB PO SCH ×2 (08:24→20:53)
[2022-05-23] MEDS: FLUoxetine ORAL SOLN 20 MG/5 ML CUP PO SCH (08:24)
[2022-05-23] MEDS: ENOXAPARIN 30 MG/0.3 ML SYRINGE SQ SCH (08:25)
[2022-05-23] MEDS: ONDANSETRON 4 MG/2 ML VIAL IVP PRN ×3 (09:23→20:54)
--- NOTE | 2022-05-23 10:55 | P.PN ---
Progress Note - Text Progress Note Date: 05/23/22 Patient still has complaints of dysphagia. She throughout this morning. On exam vital signs appear stable. Abdomen soft. Patient has a gastro-jejunal stricture causing her nausea vomiting. The patient is unable tolerate liquids at this time. She'll K receive supportive care.
--- NOTE | 2022-05-23 14:48 | P.PN ---
Subjective Progress Note Date: 05/23/22 Follow-up for hyponatremia.Denies any nausea vomiting diarrhea. Objective - Vital Signs Vital signs: Vital Signs Temp 97.6 F 05/23/22 04:24 Pulse 51 L 05/23/22 04:24 Resp 15 05/23/22 04:24 BP 92/52 05/23/22 04:24 Pulse Ox 98 05/23/22 04:24 FiO2 Intake & Output 05/22/22 05/23/22 05/23/22 18:59 06:59 18:59 Intake Total 1400 Balance 1400 Intake: IV 100 Intake, IV Titration 1300 Amount 0.9% NaCl with KCl 40 Meq 900 /l 1,000 ml @ 100 mls/hr IV .Q10H [facility] Rx#: [id number] Potassium Chloride 10 meq 400 In Water For Injection 1 100ml.bag @ 100 mls/hr IVPB Q1HR [facility] Rx#: [id number] Other: # Voids 2 1 # Bowel Movements 1 - Exam No acute distress S1-S2 heard Decreased breath sounds No edema - Labs CBC & Chem 7: 05/20/22 14:57 05/23/22 04:59 Labs: Abnormal Lab Results - Last 24 Hours (Table) 05/22/22 05/23/22 Range/Units 15:40 04:59 Carbon Dioxide 21 L (22-30) mmol/L BUN <2 L (7-17) mg/dL Urine Ketones 4+ H (Negative) Assessment and Plan Assessment: #1 hyperkalemia multifactorial. -With diarrhea and metabolic acidosis suspect GI cause. -With recent gastric bypass surgery decreased oral intake. #2 nausea vomiting with recent COVID-19 pneumonia. #3 obesity status post gastric bypass surgery Plan: #1 potassium better. Continue with supplements and IV. #2 once potassium greater than 4 discontinue IV supplementation. Continue with oral 20 mEq daily. #3 once GI symptoms resolved recheck urine potassium to creatinine ratio and urine electrolytes.
[2022-05-23] MEDS: SCOPOLAMINE 1 MG/72 HR PATCH TRANSDERM SCH (20:53)
[2022-05-23] MEDS: LORazepam 1 MG/0.5 ML VIAL IV PRN (23:40)
[2022-05-24] MEDS: 0.9% NACL WITH KCL 40 MEQ/L 1,000 ML IV SCH ×2 (05:28→15:16)
[2022-05-24] MEDS: OLANZapine ODT 5 MG TAB PO SCH ×2 (08:48→20:07)
[2022-05-24] MEDS: ENOXAPARIN 30 MG/0.3 ML SYRINGE SQ SCH (08:48)
[2022-05-24] MEDS: SUCRALFATE 1 GM TAB PO SCH ×2 (08:48→17:28)
[2022-05-24] MEDS: SODIUM BICARBONATE TAB 650 MG TAB PO SCH ×2 (08:48→20:07)
[2022-05-24] MEDS: PANTOPRAZOLE 40 MG/10 ML VIAL IV SCH (08:48)
[2022-05-24] MEDS: FLUoxetine ORAL SOLN 20 MG/5 ML CUP PO SCH (09:48)
[2022-05-24] MEDS: ONDANSETRON 4 MG/2 ML VIAL IVP PRN ×2 (09:52→17:28)
--- NOTE | 2022-05-24 11:36 | P.PN ---
Subjective Progress Note Date: 05/24/22 Follow-up for hypokalemia. Denies any nausea vomiting diarrhea. Objective - Vital Signs Vital signs: Vital Signs Temp 97.6 F 05/24/22 11:03 Pulse 57 L 05/24/22 11:03 Resp 16 05/24/22 11:03 BP 101/68 05/24/22 11:03 Pulse Ox 99 05/24/22 11:03 FiO2 Intake & Output 05/23/22 05/24/22 05/24/22 18:59 06:59 18:59 Intake Total 950 1390 Output Total 30 Balance 920 1390 Intake: Intake, IV Titration 900 800 Amount 0.9% NaCl with KCl 40 Meq 900 800 /l 1,000 ml @ 100 mls/hr IV .Q10H [facility] Rx#: [id number] Oral 50 590 Output: Emesis 30 Other: # Voids 2 2 - Exam No acute distress S1-S2 heard Decreased breath sounds No edema - Labs CBC & Chem 7: 05/20/22 14:57 05/23/22 04:59 Assessment and Plan Assessment: #1 hypokalemia multifactorial. -With diarrhea and metabolic acidosis suspect GI cause. -With recent gastric bypass surgery decreased oral intake. #2 nausea vomiting with recent COVID-19 pneumonia. #3 obesity status post gastric bypass surgery Plan: #1 potassium better. Continue with supplements and IV. #2 once potassium greater than 4 discontinue IV supplementation. Continue with oral 20 mEq daily. #3 once GI symptoms resolved recheck urine potassium to creatinine ratio and urine electrolytes.
--- NOTE | 2022-05-24 13:05 | P.PN ---
Progress Note - Text Progress Note Date: 05/24/22 Patient has had very limited oral intake. She still is nauseated. On exam vital signs are stable. Abdomen soft. Gastrojejunostomy stricture. Patient will be continued to be evaluated. She cannot be discharged home due to her poor oral intake. Patient be reevaluated by Dr. Oliveira in the a.m.
[2022-05-24] MEDS: LORazepam 1 MG/0.5 ML VIAL IV PRN (21:54)
[2022-05-25] MEDS: 0.9% NACL WITH KCL 40 MEQ/L 1,000 ML IV SCH (00:41)
[2022-05-25] MEDS: ONDANSETRON 4 MG/2 ML VIAL IVP PRN ×2 (06:14→11:23)
--- NOTE | 2022-05-25 08:29 | P.PN ---
Subjective Progress Note Date: 05/25/22 CHIEF COMPLAINT: Intractable nausea and vomiting with hypokalemia HISTORY OF PRESENT ILLNESS: Amy Juarez is a 26-year-old female status post gastric bypass and upper endoscopy . Patient was taken extremely large pills for correction of her potassium. She reports her pill being stuck at its recurr ent dysphagia. She reports poor oral intake due to dysphagia. REVIEW OFDilation ORGAN SYSTEMS: Reports chest pressure. No shortness of breath. Reports nausea. PHYSICAL EXAM: VITAL SIGNS: Reviewed GENERAL: Well-developed in no acute distress. HEENT: No scleral icterus. Extraocular movements grossly intact. Hears conversational speech. No nasal drainage. NECK: Supple without lymphadenopathy. CHEST: Nonlabored respirations with equal bilateral excursions. CARDIOVASCULAR: Regular rate and regular rhythm. Distal 2+ pulses. ABDOMEN: Obese, soft, nontender, nondistended. MUSCULOSKELETAL: No clubbing, cyanosis NEURO: No focal or lateralizing signs. Cranial nerves 2 through 12 grossly within normal limits. PSYCH: Appropriate affect. Alert and oriented to person, place and time. SKIN: Good skin turgor. Well perfused. LABS: Potassium 3.8 ASSESSMENT: 1. Severe potassium deficiency with hypokalemia, critical value 2. Morbid obesity and excess calories, body mass index of 47.1 to 38.4 3. Gastroesophageal reflux disease 4. Diabetes type II mellitus 5. Generalized anxiety disorder 6. Bipolar disorder 7. Depressive disorder 8. Disk herniation L5 S1 9. Osteoarthritis of the hip, right 10. Osteoarthritis of the knee, right 11. Osteoarthritis of right shoulder 12. Leukocytosis 13. Elevated LFTs 14. Hypertriglyceridemia 15. Vitamin D deficiency 16. Status post gastric bypass 17. Atypical chest pain 18. Abdominal pain 19. Chronic dehydration due to inadequate oral intake 20. Intractable nausea vomiting 21. Noncompliance to the bariatric care 22. Pericardial effusion, new 23. Recalcitrant hypokalemia 24. Gastrojejunal stricture with dysphagia 25. Foreign body due to pill PLAN: 1. Patient had a large pill she reports immediate dysphagia. Recommend repeat upper endoscopy with removal of foreign body/dilation. 2. Repeat potassium Objective - Vital Signs Vital signs: Vital Signs Temp 97 F L 05/25/22 05:50 Pulse 65 05/25/22 05:50 Resp 16 05/24/22 19:48 BP 92/61 05/25/22 05:50 Pulse Ox 97 05/25/22 05:50 FiO2 Intake & Output 05/24/22 05/25/22 05/25/22 18:59 06:59 18:59 Intake Total 1200 1400 Output Total 15 Balance 1185 1400 Intake: Intake, IV Titration 850 1400 Amount 0.9% NaCl with KCl 40 Meq 850 1400 /l 1,000 ml @ 100 mls/hr IV .Q10H [facility] Rx#: [id number] Oral 350 Output: Emesis 15 Other: # Voids 1 # Bowel Movements 0 - Labs CBC & Chem 7: 05/20/22 14:57 05/23/22 04:59
--- NOTE | 2022-05-25 09:01 | P.PN ---
Subjective Patient is seen in follow-up for hypokalemia. Improved with replacement. Currently on full liquid diet. No vomiting or diarrhea. Vital signs are stable. General: No acute distress. HEENT: Head exam is unremarkable. LUNGS: Breath sounds decreased. HEART: Rate and Rhythm are regular. ABDOMEN: Soft, no distention. Obese. EXTREMITITES: No edema. Objective - Vital Signs Vital signs: Vital Signs Temp 97 F L 05/25/22 05:50 Pulse 65 05/25/22 05:50 Resp 16 05/24/22 19:48 BP 92/61 05/25/22 05:50 Pulse Ox 97 05/25/22 05:50 FiO2 Intake & Output 05/24/22 05/25/22 05/25/22 18:59 06:59 18:59 Intake Total 1200 1400 Output Total 15 Balance 1185 1400 Intake: Intake, IV Titration 850 1400 Amount 0.9% NaCl with KCl 40 Meq 850 1400 /l 1,000 ml @ 100 mls/hr IV .Q10H [facility] Rx#: [id number] Oral 350 Output: Emesis 15 Other: # Voids 1 # Bowel Movements 0 - Labs CBC & Chem 7: 05/20/22 14:57 05/23/22 04:59 Assessment and Plan Plan: Assessment: 1. Hypokalemia from poor intake as well as hypovolemia leading to renal losses. Replace. Better. 2. Status post gastric bypass surgery in April 2022. 3. Recent COVID-19 infection. 4. Metabolic acidosis secondary to GI losses and IV fluids. On oral bicarb. Improved. Plan: Maintain IV fluids with potassium supplementation. Follow-up morning labs. Will stop IV potassium supplementation if greater than 4. Further workup of hypokalemia outpatient once GI symptoms resolved.
[2022-05-25] MEDS: PANTOPRAZOLE 40 MG/10 ML VIAL IV SCH (09:12)
[2022-05-25] MEDS: ENOXAPARIN 30 MG/0.3 ML SYRINGE SQ SCH (09:12)
[2022-05-25] MEDS: SUCRALFATE 1 GM TAB PO SCH (09:13)
[2022-05-25] MEDS ORDERED: LIDOCAINE 2% INJ 20 MG/ML (2 ML VIAL) ONE (09:25)
[2022-05-25] MEDS ORDERED: PROPOFOL 10 MG/ML 20 ML VIAL IV ONE (09:25)
[2022-05-25] MEDS ORDERED: LACTATED RINGERS 1,000 ML IV ONE ×2 (09:34)
--- NOTE | 2022-05-25 09:49 | P.PCN ---
Date of Procedure: 05/25/22 Description of Procedure: PREOPERATIVE DIAGNOSIS: Dysphagia. s/p Janak-en-y gastric bypass. Nausea with vomiting. Morbid obesity. Globus due to foreign body, pill Gastrojejunal stricture POSTOPERATIVE DIAGNOSIS: Dysphagia. s/p Janak-en-y gastric bypass. Nausea with vomiting. Morbid obesity. Globus due to foreign body, pill Gastrojejunal stricture OPERATION: Esophagogastrojejunoscopy SURGEON: Lola Hatfield MD ANESTHESIA: MAC. INDICATIONS: The patient is a 26-year-old female who presents with globus following ingestion of a large pill and dysphagia. Benefits and risks of the procedure were described. Informed consent was obtained. DESCRIPTION: The patient was brought into the endoscopy suite and laid in the left lateral decubitus position. After a timeout was confirmed, the procedure was initiated. An Olympus gastroscope was passed along the posterior oropharynx down to the distal esophagus where the squamocolumnar junction was unremarkable. The gastric pouch was entered. A patent gastrojejunal anastomosis without foreign body was found. Maintain previous dilation confirmed. Improved chronic gastrojejunal marginal ulcer was encountered. No full-thickness injury was encountered. The GI tract was desufflated. The patient tolerated the procedure well. FINDINGS: Chronic gastrojejunal ulceration encountered improved, Patent anastomosis without obstruction due to foreign body RECOMMENDATIONS: Continue Protonix and Carafate Trial of bariatric pureed diet
[2022-05-25 10:06] VITALS: RESP 18
[2022-05-25 11:12] LABS: ALT 40 U/L (8-44); AST 35 U/L (13-35); African American GFR (CKD) 144.8 (60.0-200.0); Albumin 3.6 g/dL (3.8-4.9); Alkaline Phosphatase 62 U/L (41-126); Blood Urea Nitrogen <1.4 mg/dL (9.0-27.0); Calcium 9.1 mg/dL (8.7-10.3); Carbon Dioxide 19.5 mmol/L (20.0-27.5); Chloride 105 mmol/L (96-109); Globulin 1.8 g/dL (1.6-3.3); Glucose 74 mg/dL (70-110); Non-African American GFR(CKD) 124.9 (60.0-200.0); Sodium 140 mmol/L (135-145); Total Protein 5.4 g/dL (6.2-8.2)
[2022-05-25] MEDS: SODIUM BICARBONATE TAB 650 MG TAB PO SCH (11:16)
[2022-05-25] MEDS: FLUoxetine ORAL SOLN 20 MG/5 ML CUP PO SCH (11:18)
[2022-05-25] MEDS: OLANZapine ODT 5 MG TAB PO SCH (11:19)
[2022-05-25 12:00] VITALS: BP 94/66; PULSE 75; TEMP 97.7
[2022-05-25] MEDS ORDERED: SODIUM CHLORIDE 0.9% 1,000 ML IV SCH (12:15)
[2022-05-25] MEDS ORDERED: POTASSIUM CHLORIDE ER 20 MEQ TAB.ER PO SCH (12:15)
[2022-05-25 13:50] VITALS: BMI 38.4
--- NOTE | 2022-05-25 15:16 | P.DS ---
Providers Date of admission: 05/25/22 12:06 Expected date of discharge: 05/25/22 Attending physician: Lola Hatfield Consults: 05/21/22 12:52 Consult Physician Routine Consulting Provider: Jose Angel Crisostomo Consult Reason/Comments: Psych med management Do you want consulting provider notified?: Yes Consult Physician Routine Consulting Provider: Amber Frances Consult Reason/Comments: Hypokalemia Do you want consulting provider notified?: Yes 05/21/22 18:28 Consult Physician Routine Consulting Provider: Pedro De Oliveira Consult Reason/Comments: Pericardial effusion symptomatic Do you want consulting provider notified?: Yes, Notify in am Primary care physician: Physician Nonstaff Hospital Course: Discharge diagnosis 1. Severe potassium deficiency with hypokalemia, critical value 2. Morbid obesity and excess calories, body mass index of 47.1 to 38.4 3. Gastroesophageal reflux disease 4. Diabetes type II mellitus 5. Generalized anxiety disorder 6. Bipolar disorder 7. Depressive disorder 8. Disk herniation L5 S1 9. Osteoarthritis of the hip, right 10. Osteoarthritis of the knee, right 11. Osteoarthritis of right shoulder 12. Leukocytosis 13. Elevated LFTs 14. Hypertriglyceridemia 15. Vitamin D deficiency 16. Status post gastric bypass 17. Atypical chest pain 18. Abdominal pain 19. Chronic dehydration due to inadequate oral intake 20. Intractable nausea vomiting 21. Noncompliance to the bariatric care 22. Pericardial effusion, new 23. Recalcitrant hypokalemia 24. Gastrojejunal stricture with dysphagia 25. Foreign body due to pill Hospital course Amy Piper is a 26-year-old female status post gastric bypass 3 weeks ago. Patient had contracted coronavirus after going to a concert and has chronic nausea as a result. She has not been eating or drinking per bariatric protocol. She also presented with dehydration. She is obtaining fluids at the bariatric center. She was seen in the bariatric center where repeat blood work was performed. Patient presented with severe hypokalemia potassium 2.7 critical value which admission was advised. Patient had complained of intermittent abdominal pain with diarrhea for 5 days. She had complained of chest pain. As result of her complaints and critical hypokalemia, patient has been admitted. She also reports not taking her antipsychotic medications including lithium due to malabsorption with her recent gastric bypass. Patient had 2 EGDs done during this admission. First EGD completed with balloon dilatation for gastroesophageal jejunal stricture. Second EGD completed because patient had dysphagia with a large pill. The chronic gastrojejunal ulcer encountered on previous EGD had shown improvement. In no evidence of any foreign body noted on EGD. Patient's hypokalemia has been corrected. She was seen by nephrology during this admission. Also seen by psychiatry during this admission her psychiatric medications were changed so that she could tolerate them better. Seroquel was discontinued due to causing hypokalemia. Patient seen by cardiology regarding her trace pericardial effusion. No intervention was required. Patient's overall symptoms have shown improvement. Her potassium has been corrected. She was able to tolerate diet. She is up and ambulating. She is afebrile. She is stable for discharge. Physician Manager Combination note has been reviewed by physician. Signing provider agrees with the documented findings, assessment, and plan of care. Patient Condition at Discharge: Stable Plan - Discharge Summary Discharge Rx Participant: Yes New Discharge Prescriptions: New FLUoxetine ORAL SOLN [PROzac ORAL SOLN] 20 mg PO DAILY #300 ml OLANZapine ODT [ZyPREXA Zydis] 5 mg PO BID #30 tab Scopolamine 1 mg/72 Hr Patch [TransDerm Scop] 1 patch TRANSDERM Q72H #10 patch Pantoprazole Sodium [Protonix] 40 mg PO BID #60 capsule Sucralfate [Carafate] 1 gm PO AC-BID #60 tablet Discontinued QUEtiapine [SEROquel] 100 mg PO HS Omeprazole [PriLOSEC] 40 mg PO DAILY #30 cap QUEtiapine [SEROquel] 25 mg PO DAILY PRN PRN Reason: Anxiety Discharge Medication List FLUoxetine ORAL SOLN [PROzac ORAL SOLN] 20 mg PO DAILY #300 ml 05/22/22 [Rx] OLANZapine ODT [ZyPREXA Zydis] 5 mg PO BID #30 tab 05/22/22 [Rx] Scopolamine 1 mg/72 Hr Patch [TransDerm Scop] 1 patch TRANSDERM Q72H #10 patch 05/22/22 [Rx] Pantoprazole Sodium [Protonix] 40 mg PO BID #60 capsule 05/25/22 [Rx] Sucralfate [Carafate] 1 gm PO AC-BID #60 tablet 05/25/22 [Rx] Follow up Appointment(s)/Referral(s): Nonstaff,Physician [Primary Care Provider] - 1-2 days Bariatric [place], [place] [NON-STAFF] - 05/27/22 Patient Instructions/Handouts: Full Liquid Diet (DC), Esophageal Dilation (DC) Activity/Diet/Wound Care/Special Instructions: NO STRAWS. NO CARBONATED BEVERAGES Continue a bariatric pured diet Discharge/Stand Alone Forms: Who Do I Call?, Outpatient Counseling Discharge Disposition: HOME SELF-CARE
[2022-05-25] MEDS ORDERED: SCOPOLAMINE 1 MG/72 HR PATCH TRANSDERM STA (16:52)
== END 2022-05-25 18:27 | disposition home or self-care (01) | DRG 641 ==
LOC: EC 12:07 → 6NMEDSUR 15:51 → 5NMEDONC 17:36 → OBSVTOIN 05-25 12:06
PROVIDERS: ADMIT Surgery Plastic and Reconstructive Surgery; ATTEND Surgery Plastic and Reconstructive Surgery
PROC: 0DJ08ZZ Inspection of Upper Intestinal Tract, Via Natural or Artificial Opening Endoscopic (ICD-10-PCS; principal; 2022-05-22 08:05)
PROC: 0DJ08ZZ Inspection of Upper Intestinal Tract, Via Natural or Artificial Opening Endoscopic (ICD-10-PCS; 2022-05-25)
DX: E87.6 Hypokalemia (principal); K90.9 Intestinal malabsorption, unspecified; Z68.42 Body mass index [BMI] 45.0-49.9, adult; R11.2 Nausea with vomiting, unspecified; I31.39 Other pericardial effusion (noninflammatory); E86.0 Dehydration; E66.01 Morbid (severe) obesity due to excess calories; D72.829 Elevated white blood cell count, unspecified; E55.9 Vitamin D deficiency, unspecified; E78.1 Pure hyperglyceridemia; Z98.84 Bariatric surgery status; E86.1 Hypovolemia; R13.10 Dysphagia, unspecified; Z91.199 Patient's noncompliance with other medical treatment and regimen due to unspecified reason; E87.1 Hypo-osmolality and hyponatremia; E87.20 Acidosis, unspecified; F31.9 Bipolar disorder, unspecified; F41.1 Generalized anxiety disorder; E11.9 Type 2 diabetes mellitus without complications; G40.909 Epilepsy, unspecified, not intractable, without status epilepticus; K21.9 Gastro-esophageal reflux disease without esophagitis; K28.7 Chronic gastrojejunal ulcer without hemorrhage or perforation; M16.10 Unilateral primary osteoarthritis, unspecified hip; M17.10 Unilateral primary osteoarthritis, unspecified knee; M19.011 Primary osteoarthritis, right shoulder; M51.26 Other intervertebral disc displacement, lumbar region; Z79.899 Other long term (current) drug therapy; Z86.16 Personal history of COVID-19; Z87.01 Personal history of pneumonia (recurrent); Z87.891 Personal history of nicotine dependence
CPT/HCPCS: 36415; 43235; 43245; 71275; 74177; 80048; 80053; 81001; 81003; 81025; 82150; 83605; 83690; 83735; 84100; 84132; 84484; 85025; 85610; 85730; 87086; 93005; 93306; 96365; 96366; 96375; 96376; 99285

== ENCOUNTER → 2022-05-20 | Outpatient (CLI) | payer OTHER ==
[2022-05-20] MEDS: SODIUM CHLORIDE 0.9% 1,000 ML IV NR ×2 (10:00→11:02)
[2022-05-20 10:17] VITALS: BP 117/73; PULSE 92; RESP 16; TEMP 97.7
[2022-05-20 11:01] LABS: HCT 43.1 % (34.0-46.0); HGB 14.4 gm/dL (11.4-16.0); MCH 30.5 pg (25.0-35.0); MCHC 33.3 g/dL (31.0-37.0); MCV 91.6 fL (80.0-100.0); Mean Platelet Volume 11.9; Platelet Count 291 k/uL (150-450); RBC 4.71 m/uL (3.80-5.40); RDW 12.6 % (11.5-15.5); WBC 8.5 k/uL (3.8-10.6)
[2022-05-20 11:35] LABS: ALT 37 U/L (4-34); AST 36 U/L (14-36); African American GFR (CKD) >90 (>60 ml/min/1.73 sqM); Albumin 3.6 g/dL (3.5-5.0); Alkaline Phosphatase 64 U/L (38-126); Anion Gap 17 mmol/L; Blood Urea Nitrogen 6 mg/dL (7-17); Calcium 8.7 mg/dL (8.4-10.2); Carbon Dioxide 18 mmol/L (22-30); Chloride 106 mmol/L (98-107); Glucose 73 mg/dL (74-99); Non-African American GFR(CKD) >90 (>60 ml/min/1.73 sqM); Sodium 141 mmol/L (137-145); Total Bilirubin 0.5 mg/dL (0.2-1.3); Total Protein 5.6 g/dL (6.3-8.2)
[2022-05-20 11:45] LABS: Potassium 2.7 mmol/L (3.5-5.1)
== END ==
LOC: PROCWHC3 09:29
PROVIDERS: ATTEND Surgery Plastic and Reconstructive Surgery
DX: E86.0 Dehydration (principal); Z91.048 Other nonmedicinal substance allergy status; Z88.2 Allergy status to sulfonamides; Z88.6 Allergy status to analgesic agent; E66.9 Obesity, unspecified; Z68.38 Body mass index [BMI] 38.0-38.9, adult
CPT/HCPCS: 80053; 85027; J2405

== ENCOUNTER 2022-06-08 08:26 | Day surgery (SDC) | payer OTHER ==
[2022-06-03 15:09] VITALS: BMI 37.6
--- NOTE | 2022-06-08 07:41 | P.GSHP ---
History of Present Illness H&P Date: 06/08/22 CHIEF COMPLAINT: GERD HISTORY OF PRESENT ILLNESS: The patient is a 26-year-old female who presents reports gastroesophageal reflux disease. Upper endoscopy was offered for further evaluation and management. PAST MEDICAL HISTORY: Please see list. PAST SURGICAL HISTORY: Please see list. MEDICATIONS: Please see list. ALLERGIES: Please see list. SOCIAL HISTORY: No illicit drug use FAMILY HISTORY: No reports of Crohn disease or ulcerative colitis. REVIEW OF ORGAN SYSTEMS: CONSTITUTIONAL: No reports of fevers or chills. GI: Denies any blood in stools or constipation. PHYSICAL EXAM: VITAL SIGNS: Stable GENERAL: Well-developed and pleasant in no acute distress. HEENT: No scleral icterus. Extraocular movements grossly intact. Moist buccal mucosa. NECK: Supple without lymphadenopathy. CHEST: Unlabored respirations. Equal bilateral excursions. CARDIOVASCULAR: Regular rate and rhythm. Distal 2+ pulses. ABDOMEN: Soft, nondistended. MUSCULOSKELETAL: No clubbing, cyanosis, or edema. ASSESSMENT: 1. Gastroesophageal reflux disease PLAN: 1. Recommend proceeding with an upper endoscopy Past Medical History Past Medical History: GERD/Reflux, Seizure Disorder Additional Past Medical History / Comment(s): Hx seizure X1 November 2018 (unknown cause), Pre-Diabetic, back pain, hx Covid X3, still has difficulty taking a deep breath sometimes, hand tremors. History of Any Multi-Drug Resistant Organisms: None Reported Past Surgical History: Adenoidectomy, Appendectomy, Bariatric Surgery, Cholecystectomy, Ear Surgery, Orthopedic Surgery Additional Past Surgical History / Comment(s): Right ankle stabilized with pins placed, right hip repair, tubes in ears, Gastric Bypass 04-27-22. Past Anesthesia/Blood Transfusion Reactions: Previous Problems w/ Anesthesia, Postoperative Nausea & Vomiting (PONV) Additional Past Anesthesia/Blood Transfusion Reaction / Comment(s): States cries and panics when she wakes up. Past Psychological History: Anxiety, Bipolar, Depression Smoking Status: Never smoker Past Alcohol Use History: Rare Past Drug Use History: Marijuana Additional Drug Use History / Comment(s): Daily marijuana use. Aware no use 24 hrs prior to procedure. - Past Family History Mother Family Medical History: No Reported History Father Family Medical History: Coronary Artery Disease (CAD), Diabetes Mellitus, Deep Vein Thrombosis (DVT), Hyperlipidemia Additional Family Medical History / Comment(s): ETOH issues. Medications and Allergies Home Medications Medication Instructions Recorded Confirmed Type Pantoprazole [Protonix] 40 mg PO BID #30 tab 05/27/22 06/03/22 Rx Loratadine-Pseudoeph 10-240 mg 1 tab PO DAILY 06/03/22 06/03/22 History [Claritin-D 24 Hour] OLANZapine ODT [ZyPREXA Zydis] 10 mg PO HS 06/03/22 06/03/22 History Allergies Allergy/AdvReac Type Severity Reaction Status Date / Time nickel Allergy Rash/Hives Verified 06/03/22 14:53 Sulfa (Sulfonamide Allergy Rash/Hives Verified 06/03/22 14:53 Antibiotics) morphine AdvReac Hallucinations, Verified 06/03/22 14:53 gets aggressive and mean.
[~2022-06-08 08:26] MED LIST changes: +LACTATED RINGERS 1,000 ML IV SCH; -ONDANSETRON 4 MG/2 ML VIAL IVP STA; -SODIUM CHLORIDE 0.9% 500 ML 500 ML in EMPTY BAG 1 BAG IV PRN
[2022-06-08 08:46] VITALS: TEMP 98
[2022-06-08] MEDS ORDERED: LACTATED RINGERS 1,000 ML IV ONE ×3 (08:47→10:35)
[2022-06-08] MEDS ORDERED: ONDANSETRON 4 MG/2 ML VIAL ONE ×2 (08:54→10:06)
[2022-06-08] MEDS ORDERED: ONDANSETRON 4 MG/2 ML VIAL IVP ONE ×2 (08:58→10:09)
[2022-06-08] MEDS ORDERED: MIDAZOLAM 2 MG/2 ML VIAL IVP ONE (08:58)
[2022-06-08 09:03] LABS: Glucose,Whole Blood 91 mg/dL (70-110)
[2022-06-08] MEDS ORDERED: LIDOCAINE 2% INJ 20 MG/ML (2 ML VIAL) ONE (09:10)
[2022-06-08] MEDS ORDERED: PROPOFOL 10 MG/ML 20 ML VIAL IV ONE (09:10)
[2022-06-08 09:37] VITALS: RESP 16
--- NOTE | 2022-06-08 09:48 | P.PCN ---
Date of Procedure: 06/08/22 Description of Procedure: PREOPERATIVE DIAGNOSIS: Dysphagia. s/p Janak-en-y gastric bypass. Nausea with vomiting. Morbid obesity. POSTOPERATIVE DIAGNOSIS: Dysphagia. s/p Janak-en-y gastric bypass. Nausea with vomiting. Morbid obesity. Gastrojejunal stricture without perforation OPERATION: Esophagogastrojejunoscopy with balloon dilatation from 10 to 13.5 mm. SURGEON: Lola Hatfield MD ANESTHESIA: MAC. INDICATIONS: The patient is a 26-year-old female who presents with a history of dysphagia, gastric bypass including new-onset nausea and vomiting. Benefits and risks of the procedure were described. Informed consent was obtained. DESCRIPTION: The patient was brought into the endoscopy suite and laid in the left lateral decubitus position. After a timeout was confirmed, the procedure was initiated. An Olympus gastroscope was passed along the posterior oropharynx down to the distal esophagus where the squamocolumnar junction was unremarkable. The gastric pouch was entered. A gastrojejunal stricture of 10 mm was found as the adult gastroscope was 9.5 mm in size. A [employer] balloon dilator was placed through the scope. Final insufflation up to 13.5 mm was performed with a total of 2 minutes. The scope was advanced up to 60 cm from the incisors into the Janak limb. The mucosa of the gastrojejunal anastomosis was intact. No large chronic gastrojejunal marginal ulcer was encountered. No full-thickness injury was encountered. The GI tract was desufflated. The patient tolerated the procedure well. FINDINGS: Squamocolumnar junction unremarkable at 35 cm. Stricture of approximately 10 mm encountered. No large chronic gastrojejunal ulceration encountered. Balloon dilatation to 13.5 mm. Diaphragmatic hiatus at 38 Gastric pouch 5 cm. Diaphragmatic hiatal hernia, 3 cm RECOMMENDATIONS: Start combined therapy of Carafate and omeprazole of at least 2 weeks. Repeat upper endoscopy with dilation Plan - Discharge Summary Discharge Rx Participant: Yes New Discharge Prescriptions: New Sucralfate [Carafate] 1 gm PO BID #30 tablet Continue Pantoprazole [Protonix] 40 mg PO BID #30 tab OLANZapine ODT [ZyPREXA Zydis] 10 mg PO HS Discontinued Loratadine-Pseudoeph 10-240 mg [Claritin-D 24 Hour] 1 tab PO DAILY Discharge Medication List Pantoprazole [Protonix] 40 mg PO BID #30 tab 05/27/22 [Rx] OLANZapine ODT [ZyPREXA Zydis] 10 mg PO HS 06/03/22 [History] Sucralfate [Carafate] 1 gm PO BID #30 tablet 06/08/22 [Rx] Follow up Appointment(s[facility]Ref[place](s[place] [facility] [place] [place] [facility] - [place]/22 Patient Instructions/Handouts: Esophageal Dilation (DC) Activity/Diet/Wound Care/Special Instructions: Start carafate today. Discharge Disposition: HOME SELF-CARE
[2022-06-08] MEDS ORDERED: LACTATED RINGERS 1,000 ML IV SCH (10:45)
[2022-06-08 12:43] VITALS: BP 102/58; PULSE 68
== END 2022-06-08 12:22 | disposition home or self-care (01) ==
LOC: ORWHC2ENDO 08:26
PROVIDERS: ATTEND Surgery Plastic and Reconstructive Surgery
DX: K56.699 Other intestinal obstruction unspecified as to partial versus complete obstruction (principal); K44.9 Diaphragmatic hernia without obstruction or gangrene; K21.9 Gastro-esophageal reflux disease without esophagitis; E66.01 Morbid (severe) obesity due to excess calories; G40.909 Epilepsy, unspecified, not intractable, without status epilepticus; R73.03 Prediabetes; M54.9 Dorsalgia, unspecified; R25.1 Tremor, unspecified; K91.0 Vomiting following gastrointestinal surgery; F41.9 Anxiety disorder, unspecified; F10.90 Alcohol use, unspecified, uncomplicated; F12.90 Cannabis use, unspecified, uncomplicated; F31.9 Bipolar disorder, unspecified; Z90.89 Acquired absence of other organs; Z98.84 Bariatric surgery status; Z90.49 Acquired absence of other specified parts of digestive tract; Z98.890 Other specified postprocedural states; Z83.3 Family history of diabetes mellitus; Z83.2 Family history of diseases of the blood and blood-forming organs and certain disorders involving the immune mechanism; Z82.49 Family history of ischemic heart disease and other diseases of the circulatory system; Z83.438 Family history of other disorder of lipoprotein metabolism and other lipidemia; Z79.1 Long term (current) use of non-steroidal anti-inflammatories (NSAID); Z79.899 Other long term (current) drug therapy; Z88.1 Allergy status to other antibiotic agents; Z88.5 Allergy status to narcotic agent; Z91.048 Other nonmedicinal substance allergy status; Z68.41 Body mass index [BMI] 40.0-44.9, adult
CPT/HCPCS: 81025; 43245; J2250; J2405; J2704; J2001; C1726

== ENCOUNTER → 2022-06-24 | Outpatient (CLI) | payer OTHER ==
--- NOTE | 2022-06-24 15:14 | P.BASOAP ---
Subjective Progress Note Date: 06/24/22 She is on Ativan. She has lost 30 pounds. She is not on her medicines. She still reports some nausea. She is eating meat. She has stricture. Needs EGD check in 3 weeks. Needs new labs. Highest weight of 275 pounds. Assessment/Plan Plan: Date: Initial Weight: 122.47 kg Initial BMI: Current Weight: Current BMI: Type of Surgery: Total Volume in Band: Previous Volume: Volume Removed: Volume Added: Band Size:
[2022-06-24 17:05] LABS: INR 0.9 (<1.2); Partial Thromboplastin Time 23.5 sec (22.0-30.0); Prothrombin Time 10.3 sec (9.0-12.0)
[2022-06-24 17:22] VITALS: BP 109/77; PULSE 87; RESP 16; TEMP 97.9; BMI 33.8
[2022-06-24 23:50] LABS: HCT 39.2 % (37.2-46.3); HGB 12.9 g/dL (12.0-15.0); MCH 29.9 pg (27.0-32.0); MCHC 32.9 g/dL (32.0-37.0); MCV 90.7 fL (80.0-97.0); Mean Platelet Volume 12.9 fL (9.5-12.2); NRBC Per 100 WBC 0 /100 WBCS (0.0-0.0); Platelet Count 225 X 10*3/uL (140-440); RBC 4.32 X 10*6/uL (4.10-5.20); RDW 13.5 % (11.5-14.5); WBC 8.07 X 10*3/uL (4.50-10.00)
[2022-06-25 01:12] LABS: % Iron Saturation 29.54 (12.00-45.00); ALT 72 U/L (8-44); AST 51 U/L (13-35); Albumin/Globulin Ratio 1.95 (1.60-3.17); Alkaline Phosphatase 84 U/L (41-126); BUN/Creat Ratio 11.18 Ratio (12.00-20.00); Blood Urea Nitrogen 5.8 mg/dL (9.0-27.0); Calcium 9.3 mg/dL (8.7-10.3); Chloride 104 mmol/L (96-109); Glucose 80 mg/dL (70-110); Iron 70 ug/dL (50-170); Magnesium 1.8 mg/dL (1.5-2.4); Non-African American GFR(CKD) 131.1 (60.0-200.0); Phosphorus 3.5 mg/dL (2.4-5.1); Potassium 3.2 mmol/L (3.5-5.5); Sodium 143 mmol/L (135-145); Total Iron Binding Capacity 237 ug/dL (228-460)
[2022-06-25 01:22] LABS: Chol/HDL Ratio 3.39 Ratio; LDL Cholesterol,Calculated 57.1 mg/dL (0.0-131.0); Prealbumin 16.1 mg/dL (18.0-42.0)
[2022-06-25 13:42] LABS: Zinc, Serum 113 ug/dL (60-130)
[2022-06-26 08:18] LABS: Vitamin A 26 ug/dL (38-106)
[2022-06-26 10:48] LABS: Vit B1(Thiamine) 26 ug/L (38-122)
== END ==
LOC: BARWHC3 13:54
PROVIDERS: ATTEND Surgery Plastic and Reconstructive Surgery
DX: E66.01 Morbid (severe) obesity due to excess calories (principal); E89.1 Postprocedural hypoinsulinemia; D50.8 Other iron deficiency anemias; D50.9 Iron deficiency anemia, unspecified; K91.2 Postsurgical malabsorption, not elsewhere classified; E44.0 Moderate protein-calorie malnutrition; E44.1 Mild protein-calorie malnutrition; E45 Retarded development following protein-calorie malnutrition; E55.9 Vitamin D deficiency, unspecified; K74.1 Hepatic sclerosis; N19 Unspecified kidney failure; T56.894A Toxic effect of other metals, undetermined, initial encounter; K50.90 Crohn's disease, unspecified, without complications; Z88.5 Allergy status to narcotic agent; Z88.2 Allergy status to sulfonamides
CPT/HCPCS: 84255; 84134; 84425; 80061; 80053; 82607; 82728; 82525; 82746; 83540; 83550; 83735; 84100; 84443; 84590; 84630; 85027; 85610; 85730; 82306; 83970; 83036; 97803; G0463; 99211

== ENCOUNTER 2022-07-20 08:48 | Day surgery (SDC) | payer OTHER ==
[2022-07-16 11:47] VITALS: BMI 35.3
[~2022-07-20 08:48] MED LIST changes: +LIDOCAINE 1% (10MG/ML) FOR IV START INTRADERMA PRN
[2022-07-20 09:25] VITALS: RESP 16; TEMP 97
[2022-07-20] MEDS ORDERED: PROPOFOL 10 MG/ML 20 ML VIAL IV ONE (10:14)
[2022-07-20] MEDS ORDERED: LIDOCAINE 2% INJ 20 MG/ML (2 ML VIAL) ONE (10:14)
[2022-07-20] MEDS ORDERED: MIDAZOLAM 2 MG/2 ML VIAL ONE (10:14)
[2022-07-20] MEDS ORDERED: fentaNYL (PF) 50 MCG/ML 2 ML AMP ONE (10:14)
--- NOTE | 2022-07-20 10:42 | P.GSHP ---
History of Present Illness H&P Date: 07/20/22 CHIEF COMPLAINT: GERD HISTORY OF PRESENT ILLNESS: The patient is a 26-year-old female who presents reports gastroesophageal reflux disease. Upper endoscopy was offered for further evaluation and management. PAST MEDICAL HISTORY: Please see list. PAST SURGICAL HISTORY: Please see list. MEDICATIONS: Please see list. ALLERGIES: Please see list. SOCIAL HISTORY: No illicit drug use FAMILY HISTORY: No reports of Crohn disease or ulcerative colitis. REVIEW OF ORGAN SYSTEMS: CONSTITUTIONAL: No reports of fevers or chills. GI: Denies any blood in stools or constipation. PHYSICAL EXAM: VITAL SIGNS: Stable GENERAL: Well-developed and pleasant in no acute distress. HEENT: No scleral icterus. Extraocular movements grossly intact. Moist buccal mucosa. NECK: Supple without lymphadenopathy. CHEST: Unlabored respirations. Equal bilateral excursions. CARDIOVASCULAR: Regular rate and rhythm. Distal 2+ pulses. ABDOMEN: Soft, nondistended. MUSCULOSKELETAL: No clubbing, cyanosis, or edema. ASSESSMENT: 1. Gastroesophageal reflux disease PLAN: 1. Recommend proceeding with an upper endoscopy Past Medical History Past Medical History: GERD/Reflux, Seizure Disorder Additional Past Medical History / Comment(s): Hx seizure X1 November 2018 (unknown cause), Pre-Diabetic, back pain, hx Covid X3, still has difficulty taking a deep breath sometimes, hand tremors. History of Any Multi-Drug Resistant Organisms: None Reported Past Surgical History: Adenoidectomy, Appendectomy, Bariatric Surgery, Cholecystectomy, Ear Surgery, Orthopedic Surgery Additional Past Surgical History / Comment(s): Right ankle stabilized with pins placed, right hip repair, tubes in ears, Gastric Bypass 04-27-22., EGD W/DILATATION Past Anesthesia/Blood Transfusion Reactions: Previous Problems w/ Anesthesia, Postoperative Nausea & Vomiting (PONV) Additional Past Anesthesia/Blood Transfusion Reaction / Comment(s): States cries and panics when she wakes up. Smoking Status: Never smoker - Past Family History Mother Family Medical History: No Reported History Father Family Medical History: Coronary Artery Disease (CAD), Diabetes Mellitus, Deep Vein Thrombosis (DVT), Hyperlipidemia Additional Family Medical History / Comment(s): ETOH issues. Medications and Allergies Home Medications Medication Instructions Recorded Confirmed Type OLANZapine ODT [ZyPREXA Zydis] 10 mg PO HS 06/03/22 07/20/22 History LORazepam [Ativan] 0.5 - 1 mg PO BID PRN 07/16/22 07/20/22 History Omeprazole 40 mg PO DAILY 07/16/22 07/20/22 History Propranolol [Inderal] 20 mg PO BID 07/16/22 07/20/22 History FLUoxetine HCL [PROzac] 10 mg PO DAILY 07/20/22 07/20/22 History Allergies Allergy/AdvReac Type Severity Reaction Status Date / Time nickel Allergy Rash/Hives Verified 07/20/22 09:09 Sulfa (Sulfonamide Allergy Rash/Hives Verified 07/20/22 09:09 Antibiotics) morphine AdvReac Hallucinations, Verified 07/20/22 09:09 gets aggressive and mean. Surgical - Exam Vital Signs Temp Pulse Resp BP Pulse Ox 97 F L 80 16 104/63 98 07/20/22 09:01 07/20/22 09:01 07/20/22 09:01 07/20/22 09:01 07/20/22 09:01
[2022-07-20 10:52] VITALS: BP 98/64; PULSE 65
--- NOTE | 2022-07-23 09:32 | P.PCN ---
Date of Procedure: 07/20/22 Description of Procedure: PREOPERATIVE DIAGNOSIS: Dysphagia. s/p Janak-en-y gastric bypass. History of gastrojejunal ulcer with stricture POSTOPERATIVE DIAGNOSIS: Dysphagia. s/p Janak-en-y gastric bypass. History of gastrojejunal ulcer with stricture OPERATION: Esophagogastrojejunoscopy. SURGEON: Lola Hatfield MD ANESTHESIA: MAC. INDICATIONS: The patient is a 26-year-old female who presents with a history of dysphagia, gastric bypass including gastric stenosis. Benefits and risks of the procedure were described. Informed consent was obtained. DESCRIPTION: The patient was brought into the endoscopy suite and laid in the left lateral decubitus position. After a timeout was confirmed, the procedure was initiated. An Olympus gastroscope was passed along the posterior oropharynx down to the distal esophagus where the squamocolumnar junction was unremarkable. The gastric pouch was entered. Resolved gastrojejunal stricture was found with anastomosis at 20 mm. The scope was advanced up to 60 cm from the incisors into the Janak limb. The mucosa of the gastrojejunal anastomosis was intact. No large chronic gastrojejunal marginal ulcer was encountered. The GI tract was desufflated. The patient tolerated the procedure well. FINDINGS: Squamocolumnar junction unremarkable at 35 cm. Resolved stricture No large chronic gastrojejunal ulceration encountered. Diaphragmatic hiatus at 38 Gastric pouch 5 cm. Diaphragmatic hiatal hernia, 3 cm RECOMMENDATIONS: Continue omeprazole 40 mg daily Upper endoscopy as needed Plan - Discharge Summary Discharge Rx Participant: Yes New Discharge Prescriptions: Continue Propranolol [Inderal] 20 mg PO BID LORazepam [Ativan] 0.5 - 1 mg PO BID PRN PRN Reason: Anxiety OLANZapine ODT [ZyPREXA Zydis] 10 mg PO HS Omeprazole 40 mg PO DAILY FLUoxetine HCL [PROzac] 10 mg PO DAILY Discharge Medication List OLANZapine ODT [ZyPREXA Zydis] 10 mg PO HS 06/03/22 [History] LORazepam [Ativan] 0.5 - 1 mg PO BID PRN 07/16/22 [History] Omeprazole 40 mg PO DAILY 07/16/22 [History] Propranolol [Inderal] 20 mg PO BID 07/16/22 [History] FLUoxetine HCL [PROzac] 10 mg PO DAILY 07/20/22 [History] Follow up Appointment(s)/Referral(s): [facility] [place] [facility] - 07/29/22 1:30 pm Patient Instructions/Handouts: *Surgery [facility] - (Anesthesia) Endoscopy Discharge Instructions, Upper Endoscopy (GEN) Discharge Disposition: HOME SELF-CARE
== END 2022-07-20 11:09 | disposition home or self-care (01) ==
LOC: ORWHC2ENDO 08:48
PROVIDERS: ATTEND Surgery Plastic and Reconstructive Surgery
DX: K21.9 Gastro-esophageal reflux disease without esophagitis (principal); Z98.0 Intestinal bypass and anastomosis status; Z87.11 Personal history of peptic ulcer disease; K44.9 Diaphragmatic hernia without obstruction or gangrene; G40.909 Epilepsy, unspecified, not intractable, without status epilepticus; Z86.16 Personal history of COVID-19; F41.9 Anxiety disorder, unspecified; F32.A Depression, unspecified; Z90.49 Acquired absence of other specified parts of digestive tract; Z98.84 Bariatric surgery status; Z98.890 Other specified postprocedural states; Z82.49 Family history of ischemic heart disease and other diseases of the circulatory system; Z83.2 Family history of diseases of the blood and blood-forming organs and certain disorders involving the immune mechanism; Z81.1 Family history of alcohol abuse and dependence; Z88.2 Allergy status to sulfonamides; Z88.5 Allergy status to narcotic agent; Z88.8 Allergy status to other drugs, medicaments and biological substances; Z79.83 Long term (current) use of bisphosphonates; Z79.891 Long term (current) use of opiate analgesic; Z79.899 Other long term (current) drug therapy; R73.03 Prediabetes
CPT/HCPCS: 43235; J2250; J3010; J2704; J2001

== ENCOUNTER → 2022-10-28 | Outpatient (CLI) | payer OTHER ==
[2022-10-28 15:22] VITALS: BP 93/60; PULSE 91; TEMP 98; BMI 30.2
--- NOTE | 2022-10-28 16:35 | P.BASOAP ---
Subjective Progress Note Date: 10/28/22 She has lost 100 pounds. Goal is 150 to 160 pound. She is want to lose more. No further nausea. She is on prozac and zyprexa. She is taking MVI. She had numbness and is better. She feels well. Recommend labs. Objective - Vital Signs Vital signs: Vital Signs Temp 98.0 F 10/28/22 15:19 Pulse 91 10/28/22 15:19 Resp BP 93/60 10/28/22 15:19 Pulse Ox FiO2 Intake & Output 10/27/22 10/28/22 10/28/22 18:59 06:59 18:59 Weight 78.653 kg Assessment/Plan Plan: Date: 10/28/22 Initial Weight: 122.47 kg Initial BMI: 47.0 Current Weight: 78.653 kg Current BMI: 30.2 Type of Surgery: Total Volume in Band: Previous Volume: Volume Removed: Volume Added: Band Size:
== END ==
LOC: BARWHC3 13:34
PROVIDERS: ATTEND Surgery Plastic and Reconstructive Surgery
DX: E66.01 Morbid (severe) obesity due to excess calories (principal); Z71.3 Dietary counseling and surveillance; Z68.30 Body mass index [BMI] 30.0-30.9, adult; Z91.048 Other nonmedicinal substance allergy status; Z88.2 Allergy status to sulfonamides; Z88.6 Allergy status to analgesic agent
CPT/HCPCS: 97803; G0463; 99211

== ENCOUNTER → 2022-10-28 | Outpatient (CLI) | payer OTHER ==
[2022-10-28 15:10] LABS: Partial Thromboplastin Time 23.7 sec (22.0-30.0); Prothrombin Time 10.4 sec (9.0-12.0)
[2022-10-28 18:19] LABS: HCT 40.9 % (37.2-46.3); HGB 13.3 g/dL (12.0-15.0); MCH 30.7 pg (27.0-32.0); MCHC 32.5 g/dL (32.0-37.0); MCV 94.5 fL (80.0-97.0); Mean Platelet Volume 11.5 fL (9.5-12.2); NRBC Per 100 WBC 0 /100 WBCS (0.0-0.0); Platelet Count 284 X 10*3/uL (140-440); RBC 4.33 X 10*6/uL (4.10-5.20); RDW 12.1 % (11.5-14.5); WBC 9.82 X 10*3/uL (4.50-10.00)
[2022-10-28 18:47] LABS: Chol/HDL Ratio 2.35 Ratio; LDL Cholesterol,Calculated 60.4 mg/dL (0.0-131.0); Prealbumin 21.8 mg/dL (18.0-42.0)
[2022-10-28 19:21] LABS: % Iron Saturation 30.57 (12.00-45.00); ALT 36 U/L (8-44); AST 26 U/L (13-35); African American GFR (CKD) 147.5 (60.0-200.0); Albumin 4.6 g/dL (3.8-4.9); Alkaline Phosphatase 100 U/L (41-126); BUN/Creat Ratio 18.87 Ratio (12.00-20.00); Blood Urea Nitrogen 10.7 mg/dL (9.0-27.0); Calcium 9.7 mg/dL (8.7-10.3); Carbon Dioxide 23.1 mmol/L (20.0-27.5); Chloride 106 mmol/L (96-109); Globulin 2.3 g/dL (1.6-3.3); Glucose 88 mg/dL (70-110); Iron 101 ug/dL (50-170); Non-African American GFR(CKD) 127.3 (60.0-200.0); Phosphorus 3.9 mg/dL (2.4-5.1); Potassium 4.2 mmol/L (3.5-5.5); Sodium 140 mmol/L (135-145); Total Iron Binding Capacity 330 ug/dL (228-460); Total Protein 6.8 g/dL (6.2-8.2)
[2022-10-30 07:47] LABS: Zinc, Serum 64 ug/dL (60-130)
[2022-10-30 09:17] LABS: Vitamin A 46 ug/dL (38-106)
== END | disposition home or self-care (01) ==
LOC: LABWHC1 13:38
PROVIDERS: ATTEND Surgery Plastic and Reconstructive Surgery
DX: E89.1 Postprocedural hypoinsulinemia (principal); E66.01 Morbid (severe) obesity due to excess calories; D50.8 Other iron deficiency anemias; K91.2 Postsurgical malabsorption, not elsewhere classified; E44.0 Moderate protein-calorie malnutrition; E44.1 Mild protein-calorie malnutrition; E45 Retarded development following protein-calorie malnutrition; E55.9 Vitamin D deficiency, unspecified; K74.1 Hepatic sclerosis; N19 Unspecified kidney failure; T56.894A Toxic effect of other metals, undetermined, initial encounter; K50.90 Crohn's disease, unspecified, without complications
CPT/HCPCS: 36415; 80053; 80061; 82306; 82525; 82607; 82728; 82746; 83036; 83540; 83550; 83735; 83970; 84100; 84134; 84255; 84425; 84443; 84590; 84630; 85027; 85610; 85730

== ENCOUNTER → 2023-02-03 | Outpatient (CLI) | payer OTHER ==
[2023-02-03 17:10] LABS: Partial Thromboplastin Time 23.1 sec (22.0-30.0); Prothrombin Time 10.3 sec (9.0-12.0)
[2023-02-04 02:27] LABS: HCT 38.8 % (37.2-46.3); HGB 12.8 d/dL (12.0-15.0); Mean Platelet Volume 11.1 FL (9.5-12.2); NRBC Per 100 WBC 0 X 10*3/uL (0.00-0.01); Platelet Count 310 X 10*3/uL (140-440); RDW 11.9 % (11.5-14.5); WBC 10.83 X 10*3/uL (4.50-10.00)
[2023-02-04 02:54] LABS: % Iron Saturation 25.08 (12.00-45.00); ALT 17 U/L (8-44); AST 18 U/L (13-35); Albumin 4.4 d/dL (3.8-4.9); Alkaline Phosphatase 74 U/L (41-126); BUN/Creat Ratio 11.33 Ratio (12.00-20.00); Blood Urea Nitrogen 6.8 mg/dL (9.0-27.0); Calcium 9.4 mg/dL (8.7-10.3); Chloride 104 mmol/L (96-109); Chol/HDL Ratio 2.08 Ratio; Globulin 2.2 d/dL (1.6-3.3); Glucose 79 mg/dL (70-110); Iron 81 UG/DL (50-170); LDL Cholesterol,Calculated 39.7 mg/dL (0.0-131.0); Magnesium 2.1 mg/dL (1.5-2.4); Phosphorus 4.5 mg/dL (2.4-5.1); Potassium 3.8 mmol/L (3.5-5.5); Sodium 138 mmol/L (135-145); Total Bilirubin 0.3 mg/dL (0.3-1.2); Total Iron Binding Capacity 323 UG/DL (228-460); Total Protein 6.6 d/dL (6.2-8.2)
[2023-02-04 12:20] LABS: Zinc, Serum 77 ug/dL (60-130)
[2023-02-05 07:34] LABS: Vit B1(Thiamine) 91 ug/L (38-122)
== END | disposition home or self-care (01) ==
LOC: LABWHC1 13:40
PROVIDERS: ATTEND Surgery Plastic and Reconstructive Surgery
DX: E66.01 Morbid (severe) obesity due to excess calories (principal); D50.8 Other iron deficiency anemias; K91.2 Postsurgical malabsorption, not elsewhere classified; E44.0 Moderate protein-calorie malnutrition; E44.1 Mild protein-calorie malnutrition; E45 Retarded development following protein-calorie malnutrition; E55.9 Vitamin D deficiency, unspecified; K74.1 Hepatic sclerosis; N19 Unspecified kidney failure; T56.894A Toxic effect of other metals, undetermined, initial encounter; K50.90 Crohn's disease, unspecified, without complications
CPT/HCPCS: 36415; 80053; 80061; 82306; 82525; 82607; 82728; 82746; 83036; 83540; 83550; 83735; 83970; 84100; 84255; 84425; 84443; 84590; 84630; 85027; 85610; 85730

== ENCOUNTER → 2023-05-26 | Outpatient (CLI) | payer OTHER ==
[2023-05-26 14:54] VITALS: BP 105/70; PULSE 90; RESP 13; TEMP 98.6; BMI 32.4
--- NOTE | 2023-05-26 15:21 | P.BASOAP ---
Subjective Progress Note Date: 05/26/23 She 23 weeks . Recommend garlic and onions NOT aspirin for prior ulcer. NO heartburn. Get labs. FU 1 month. Objective - Vital Signs Vital signs: Vital Signs Temp 98.6 F 05/26/23 14:38 Pulse 90 05/26/23 14:38 Resp 13 05/26/23 14:38 BP 105/70 05/26/23 14:38 Pulse Ox FiO2 Intake & Output 05/25/23 05/26/23 05/26/23 18:59 06:59 18:59 Weight 84.368 kg Assessment/Plan Plan: Date: 05/26/23 Initial Weight: 122.47 kg Initial BMI: 47.0 Current Weight: 84.368 kg Current BMI: 32.4 Type of Surgery: Total Volume in Band: Previous Volume: Volume Removed: Volume Added: Band Size:
[2023-05-26 17:05] LABS: INR 0.9 (<1.2); Prothrombin Time 9.3 sec (9.0-12.0)
[2023-05-26 17:09] LABS: Partial Thromboplastin Time 21.6 sec (22.0-30.0)
[2023-05-26 22:05] LABS: HCT 40.3 % (37.2-46.3); HGB 12.7 d/dL (12.0-15.0); MCH 31.5 pg (27.0-32.0); MCHC 31.5 d/dL (32.0-37.0); Mean Platelet Volume 10.7 FL (9.5-12.2); NRBC Per 100 WBC 0 X 10*3/uL (0.00-0.01); Platelet Count 337 X 10*3/uL (140-440); RBC 4.03 X 10*6/uL (4.10-5.20); RDW 12.6 % (11.5-14.5)
[2023-05-27 01:16] LABS: Prealbumin 25.1 mg/dL (18.0-42.0)
[2023-05-27 02:13] LABS: % Iron Saturation 19.95 (12.00-45.00); ALT 12 U/L (8-44); AST 13 U/L (13-35); Albumin 4.3 d/dL (3.8-4.9); Albumin/Globulin Ratio 1.95 Ratio (1.60-3.17); Alkaline Phosphatase 58 U/L (41-126); BUN/Creat Ratio 19.33 Ratio (12.00-20.00); Blood Urea Nitrogen 11.6 mg/dL (9.0-27.0); Calcium 9.4 mg/dL (8.7-10.3); Carbon Dioxide 16.9 mmol/L (21.6-31.8); Chloride 105 mmol/L (96-109); Ferritin 36.1 ng/mL (10.0-291.0); Globulin 2.2 d/dL (1.6-3.3); Glucose 70 mg/dL (70-110); Iron 88 UG/DL (50-170); LDL Cholesterol,Calculated 75.3 mg/dL (0.0-131.0); Phosphorus 4.9 mg/dL (2.4-5.1); Potassium 4.4 mmol/L (3.5-5.5); Sodium 137 mmol/L (135-145); Total Bilirubin 0.2 mg/dL (0.3-1.2); Total Iron Binding Capacity 441 UG/DL (228-460); Total Protein 6.5 d/dL (6.2-8.2)
[2023-05-27 12:15] LABS: Zinc, Serum 57 ug/dL (60-130)
[2023-05-28 08:55] LABS: Vit B1(Thiamine) 90 ug/L (38-122)
== END ==
LOC: BARWHC3 14:20
PROVIDERS: ATTEND Surgery Plastic and Reconstructive Surgery
DX: E66.01 Morbid (severe) obesity due to excess calories (principal); E89.1 Postprocedural hypoinsulinemia; K90.89 Other intestinal malabsorption; E55.9 Vitamin D deficiency, unspecified; K74.1 Hepatic sclerosis; N19 Unspecified kidney failure; T56.894A Toxic effect of other metals, undetermined, initial encounter; K50.90 Crohn's disease, unspecified, without complications; Z68.32 Body mass index [BMI] 32.0-32.9, adult; Z88.2 Allergy status to sulfonamides; Z88.5 Allergy status to narcotic agent; Z91.048 Other nonmedicinal substance allergy status
CPT/HCPCS: 84255; 84134; 84425; 80061; 80053; 82607; 82728; 82525; 82746; 83540; 83550; 83735; 84100; 84443; 84630; 85027; 85610; 85730; 82306; 83970; 83036; 97803; G0463; 99211

== ENCOUNTER → 2023-05-28 | Outpatient (CLI) | payer OTHER | END | disposition home or self-care (01) | LOC: LABWHC1 08:54 | PROVIDERS: ATTEND Surgery Plastic and Reconstructive Surgery | DX: E66.01 Morbid (severe) obesity due to excess calories (principal); E89.1 Postprocedural hypoinsulinemia; D50.8 Other iron deficiency anemias; K91.2 Postsurgical malabsorption, not elsewhere classified; E44.0 Moderate protein-calorie malnutrition; E44.1 Mild protein-calorie malnutrition; E45 Retarded development following protein-calorie malnutrition; E46 Unspecified protein-calorie malnutrition; E55.9 Vitamin D deficiency, unspecified; K74.1 Hepatic sclerosis; N19 Unspecified kidney failure; T56.894A Toxic effect of other metals, undetermined, initial encounter; K50.90 Crohn's disease, unspecified, without complications | CPT/HCPCS: 36415; 84590 ==

== ENCOUNTER → 2023-07-13 | Outpatient (CLI) | payer OTHER ==
[2023-07-13 11:13] LABS: INR 0.8 (<1.2); Prothrombin Time 9.4 sec (10.0-12.5)
[2023-07-13 11:18] LABS: Partial Thromboplastin Time 21.8 sec (22.0-30.0)
[2023-07-13 15:57] LABS: HCT 35.8 % (37.2-46.3); HGB 12.1 g/dL (12.0-15.0); MCH 32.4 pg (27.0-32.0); MCHC 33.8 g/dL (32.0-37.0); MCV 95.7 FL (80.0-97.0); Mean Platelet Volume 10.9 FL (9.5-12.2); NRBC Per 100 WBC 0 X 10*3/uL (0.00-0.01); Platelet Count 202 X 10*3/uL (140-440); RBC 3.74 X 10*6/uL (4.10-5.20); RDW 12.7 % (11.5-14.5); WBC 11.11 X 10*3/uL (4.50-10.00)
[2023-07-13 16:35] LABS: Prealbumin 21.2 mg/dL (18.0-42.0)
[2023-07-13 16:50] LABS: % Iron Saturation 31.21 (12.00-45.00); ALT 6 U/L (8-44); AST 13 U/L (13-35); Albumin 3.6 g/dL (3.8-4.9); Albumin/Globulin Ratio 1.71 Ratio (1.60-3.17); Alkaline Phosphatase 68 U/L (41-126); BUN/Creat Ratio 14.25 Ratio (12.00-20.00); Blood Urea Nitrogen 5.7 mg/dL (9.0-27.0); Carbon Dioxide 16.1 mmol/L (21.6-31.8); Chloride 107 mmol/L (96-109); Chol/HDL Ratio 1.91 Ratio; Globulin 2.1 g/dL (1.6-3.3); Glucose 64 mg/dL (70-110); Iron 142 UG/DL (50-170); LDL Cholesterol,Calculated 53.3 mg/dL (0.0-131.0); Sodium 138 mmol/L (135-145); Total Bilirubin <0.2 mg/dL (0.3-1.2); Total Iron Binding Capacity 455 UG/DL (228-460); Total Protein 5.7 g/dL (6.2-8.2)
[2023-07-14 12:13] LABS: Zinc, Serum 71 ug/dL (60-130)
[2023-07-15 06:16] LABS: Vitamin A 43 ug/dL (38-106)
[2023-07-15 06:27] LABS: Vit B1(Thiamine) 83 ug/L (38-122)
== END | disposition home or self-care (01) ==
LOC: LABWHC1 09:52
PROVIDERS: ATTEND Surgery Plastic and Reconstructive Surgery
DX: E66.01 Morbid (severe) obesity due to excess calories (principal); E89.1 Postprocedural hypoinsulinemia; D50.8 Other iron deficiency anemias; K91.2 Postsurgical malabsorption, not elsewhere classified; E44.0 Moderate protein-calorie malnutrition; E44.1 Mild protein-calorie malnutrition; E45 Retarded development following protein-calorie malnutrition; E55.9 Vitamin D deficiency, unspecified; K74.1 Hepatic sclerosis; N19 Unspecified kidney failure; T56.894A Toxic effect of other metals, undetermined, initial encounter; K50.90 Crohn's disease, unspecified, without complications
CPT/HCPCS: 36415; 80053; 80061; 82306; 82525; 82607; 82728; 82746; 83036; 83540; 83550; 83735; 83970; 84100; 84134; 84255; 84425; 84443; 84590; 84630; 85027; 85610; 85730